=== PATIENT | female | born 1950 | race Caucasian/White ===

== ENCOUNTER 2019-11-18 12:55 | Outpatient (CLI) | payer MEDICARE, SELFPAY ==
--- NOTE | ~2019-11-18 | CT_ITS ---
EXAMINATION: CT thoracic spine wo con EXAM DATE: 11/18/2019 13:46 INDICATION: Mid back pain. Spondylosis. Spine stimulator. TECHNIQUE: Spiral CT thoracic spine wo con was performed without contrast. Axial, coronal and sagit gavi images were reviewed. The dose-length product (DLP) for this examination was 586.42 mGy-cm. The exposure was tailored according to patient size (auto mA exposure control), and iterative reconstruc tion (ASIR) was used as additional dose reduction technique. There is no prior study for comparison. FINDINGS: There is a spine stimulator device with lead tips at the T6-7 level. There is mild to moder ate mid and lower thoracic disc disease, mild upper thoracic disc disease. Diffuse mild thoracic face t arthropathy. The vertebral bodies are aligned in the AP dimension. Paraspinal soft tissue is unrema rkable. There are no osteoblastic or osteolytic lesions identified. There are cholecystectomy clips. Gastroesophageal surgical changes. IMPRESSION: 1. Mild to moderate thoracic disc disease, mild arthropathy. 2. Spine stimulator leads at T6-7 disc space level. Reviewed, dictated and finalized at location A. N SUPERVISOR
--- NOTE | ~2019-11-18 | CT_ITS ---
EXAMINATION: CT lumbar spine wo [facility] EXAM DATE: 11/18/2019 13:47 INDICATION: Spondylosis without myelopathy. Low back pain. TECHNIQUE: Spiral CT of the lumbar spine was performed without contrast. Axial, coronal and sagittal images were reviewed. The dose-length product (DLP) for this examination was 627.72 mGy-cm. The e xposure was tailored according to patient size (auto mA exposure control), and iterative reconstructi on (ASIR) was used as additional dose reduction technique. There is no prior study for comparison. FINDINGS: Spine stimulator leads entering T11-12 level left paracentral approach. Leads appear intact . There is mild to moderate disc disease at L1-2, mild at the other lumbar levels. The vertebral bodi es are aligned in the AP dimension. Paraspinal soft tissue is unremarkable. No spondylolysis. There a re no osteoblastic or osteolytic lesions identified. Sacrum, sacroiliac joints, sacral arcuate lines are intact. Level by level evaluation: T12-L1: There is a mild diffuse disc bulge. Facet arthropathy: Mild. Neural foraminal stenosis: No stenosis. Central canal stenosis: No stenosis. L1-L2: There is a mild to moderate diffuse disc bulge. Facet arthropathy: Moderate. Neural foraminal stenosis: Moderate left, mild right. Central canal stenosis: Mild to moderate. L2-L3: There is a mild diffuse disc bulge. Facet arthropathy: Moderate. Neural foraminal stenosis: Mild right. Central canal stenosis: Mild. L3-L4: There is a mild diffuse disc bulge. Facet arthropathy: Moderate. Neural foraminal stenosis: Mild to moderate bilateral. Central canal stenosis: Mild to moderate. L4-L5: There is a mild to moderate diffuse disc bulge. Facet arthropathy: Moderate. Neural foraminal stenosis: Mild to moderate bilateral. Central canal stenosis: Mild to moderate. L5-S1: There is a mild diffuse disc bulge. Facet arthropathy: Moderate. Neural foraminal stenosis: Mild to moderate left. Central canal stenosis: Mild. IMPRESSION: 1. Overall mild to moderate lumbar spondylosis. Reviewed, dictated and finalized at location A. RICT FIRE CHIEF
--- NOTE | ~2019-11-18 | US_ITS ---
EXAMINATION: US art doppler w press UE BI EXAM DATE: 11/18/2019 14:08 INDICATION: Arm pallor, bilateral leg numbness. TECHNIQUE: Segmental pressures and plethysmographic and Doppler waveforms of the upper extremity earl shaista were obtained. There is no prior study for comparison. FINDINGS: Right and left brachial artery pressures of 108 mm Hg and 110 mm Hg, respectively, are concordant (no rmal difference <= 30 mmHg). RIGHT: Biphasic waveforms. Right ulnar/brachial arterial Doppler ratio 1.03 (111 mmHg). Right radial/brachial arterial Doppler ratio 1.08 (117 mmHg). Right index finger 128 mmHg. LEFT: Biphasic waveforms. Left ulnar/brachial arterial Doppler ratio 0.95 (105 mmHg). Left radial/brachial arterial ratio 1.05 (115 mmHg). Left index finger 120 mmHg. IMPRESSION: Normal arm/brachial Doppler ratios. Reviewed, dictated and finalized at location A. FARMWORKER
== END 2019-11-18 12:56 | disposition home or self-care (01) ==
LOC: ANHIMG 12:58
PROVIDERS: PCP Registered Nurse; Visit Provider Nurse Practitioner Adult Health
DX: M47.816 Spondylosis without myelopathy or radiculopathy, lumbar region (principal); M47.894 Other spondylosis, thoracic region; Z96.82 Presence of neurostimulator; R20.2 Paresthesia of skin; R23.1 Pallor; R20.0 Anesthesia of skin; R09.89 Other specified symptoms and signs involving the circulatory and respiratory systems; R20.8 Other disturbances of skin sensation
CPT/HCPCS: 72128; 72131; 93923

== ENCOUNTER 2019-12-05 05:50 | Emergency (ER) | payer MEDICARE, SELFPAY ==
--- NOTE | ~2019-12-05 | XR_ITS ---
EXAMINATION: XR chest 2V DATE: 12/05/2019 07:09 INDICATION: Palpitations. TECHNIQUE: Frontal and lateral views of the chest were obtained. COMPARISON: Chest 2 views 06/03/2019, chest CT 07/14/2019 FINDINGS: The chest demonstrates clear lungs without pneumonia, pleural effusion, or pneumothorax. Th e heart size is normal. Epidural electrodes are noted. Surgical clips in the right upper quadrant are likely from cholecystectomy. IMPRESSION: 1. No acute cardiopulmonary disease. Reviewed, dictated and finalized at location A. OR DATA ANALYST
[2019-12-05 06:01] VITALS: BP 131/83; PULSE 83; RESP 20; TEMP 36.3; O2SAT 100
--- NOTE | 2019-12-05 06:31 | ECG_ITS ---
Measurements Intervals [place] Rate: 82 P: 6 [place]: 161 QRS: 39 QRSD: 68 T: 53 QT: 336 QTc: 393 Interpretive Statements SINUS RHYTHM LOW QRS VOLTAGE IN PRECORDIAL LEADS BORDERLINE R WAVE PROGRESSION, ANTERIOR LEADS BORDERLINE ST-T WAVE ABNORMALITY- ANT/INF LEADS BASELINE ARTIFACT- I, II, III, AVR, AVL, AVF, V3 BORDERLINE ECG Electronically Signed On 12-05-2019 8:08:31 VIROLOGIST by Abiel Veag D.O.
[2019-12-05 06:32] VITALS: BP 131/83; PULSE 83; RESP 18; TEMP 36.3; O2SAT 100
--- NOTE | 2019-12-05 06:35 | ED.GENADULT ---
HPI - General Adult General Chief complaint: Chest Pain Stated complaint: heart palp Time Seen by Provider: 12/05/19 06:02 Source: patient Mode of arrival: ambulatory Limitations: no limitations History of Present Illness HPI narrative: Patient is a 69-year-old female who presents for evaluation of back pain. Patient reports history of spinal stenosis, disc herniation, sciatica pain, follows at [facility] for pain management and has a spinal stimulator in place, who is doing so increased activity yesterday, babysitting her grandchild, lifting her grandson and doing more bending and lifting than she is used to, reportedly had very bad back pain yesterday after babysitting for several hours. Patient reports emergency department this morning that she has worsened pain that the spinal stimulator has not been working. Patient has been ambulatory. She denies any saddle anesthesia. No recent fall or injury. No history of cancer. No fever. Pain is worse with moving. She reports a tingling sensation in her bilateral buttocks. No upper or middle back pain. She reports the pain is severe in nature, and begins at her waist and moves into her lower back. No leg or hip pain. No numbness in her feet, knees or legs. No difficulty with bowel or bladder function. Of note, patient reports increased anxiety regarding this and difficulty with watching her grandchild. She reports she has had palpitations, but denies any chest pain, shoulder pain, jaw pain. No nausea, diaphoresis or shortness of breath. Patient reports a history of SVT, with ablation in the past. Related Data Allergies Allergy/AdvReac Type Severity Reaction Status Date / Time NSAIDS (Non-Steroidal Allergy Severe Other Verified 07/14/19 12:58 Anti-Inflamma Review of Systems Review of Systems: Narrative: CONSTITUTIONAL: Denies fever, chills, or sweats. ENT: Denies rhinorrhea, congestion, sore throat, or otalgia. CARDIOVASCULAR: Denies chest pain, palpitations, or edema. RESPIRATORY: Denies cough or dyspnea. GASTROINTESTINAL: Denies abdominal pain, nausea, vomiting, or diarrhea. GENITOURINARY: Denies dysuria or hematuria.No bladder incontinence. SKIN: Denies rash or itching. MUSCULOSKELETAL: Denies back pain, joint pain, or myalgia. NEUROLOGIC: Denies headache, reports numbness in the lower back, denies weakness. [facility] Past Medical History Medical History (Updated 12/05/19 @ 09:38 by Shirley Velez MD) Spinal cord stimulator status Spinal stenosis SVT (supraventricular tachycardia) Social History Social History Gender identity (if verbalized by the patient): Female Exam Narrative: Exam Narrative: GENERAL: Well-appearing, well-nourished, and in no acute distress. HEAD: Normocephalic, atraumatic. EYES: PERRLA and EOMI. ENT: Nares clear, no rhinorrhea or epistaxis. Mucous membranes moist. NECK: Supple. CHEST: Clear to auscultation. No respiratory distress. HEART: Regular rate and rhythm. No murmur heard. Normal peripheral pulses. ABDOMEN: Soft, nontender, nondistended, normal active bowel sounds. Thorax: No midline cervical or thoracic tenderness. No lumbar midline tenderness. Right SI joint tenderness. Left SI joint tenderness. EXTREMITIES: Normal range of motion. No edema. SKIN: Warm, dry, no rash. NEURO: No focal deficits. Alert and oriented x3. EOMs intact without nystagmus. No facial droop/asymmetry noted bilaterally. Grimace intact. Intact sensation in face. Hearing intact bilaterally. Shoulder shrug intact. Strength 5/5 bilateral upper extremities. Strength 5/5 bilateral lower extremities. Reflexes 2+ patellar. Heel to licona intact bilaterally. Straight leg raise negative bilaterally. Full strength in EHL/FHL bilateral feet. Intact distal sensation. Gluteal squeezes normal. Good tone. Ambulatory with a narrow-based, steady gait, no ataxia. Course Vital Signs Vital signs: Vital Signs Temperature 36.3 C L 12/05/19 06:01 Pulse Rate 83 12/05/19 0
[2019-12-05 07:26] LABS: Basophils Absolute Auto 0.1 K/mm3 (0.0-0.1); Basophils Percent Auto 1.3 % (0.2-1.2); Eosinophils Absolute Auto 0.1 K/mm3 (0-0.3); Eosinophils Percent Auto 1.5 % (0-4.4); Hematocrit 36.6 % (37.0-47.0); Hemoglobin 12.2 g/dL (12.0-15.0); Immature Granulocyte Absolute 0.01 K/mm3 (0.00-0.031); Immature Granulocyte Percent A 0.2 % (0-0.5); Lymphocytes Absolute Auto 2.42 K/mm3 (0.9-3.2); Mean Corpuscular HGB Conc 33.3 g/dl (32-36); Mean Corpuscular Hemoglobin 32.6 pg (26-34); Mean Corpuscular Volume 97.9 fl (80-100); Mean Platelet Volume 11.1 fl (7.4-10.4); Monocytes Absolute Auto 0.5 K/mm3 (0.1-0.6); Monocytes Percent Auto 9.7 % (2.6-8.5); Neutrophils Absolute Auto 1.6 K/mm3 (1.3-6.7); Neutrophils Percent Auto 35.3 % (45.5-73.1); Platelet Count Result 202 k/mm3 (150-375); Red Blood Count 3.74 M/mm3 (4.2-5.4); Red Cell Distribution Width 13.2 % (11.5-14.5); White Blood Count 4.7 K/mm3 (4.5-10.0)
[2019-12-05 07:42] LABS: Blood Urea Nitrogen 10 mg/dL (7-17); Calcium 9.6 mg/dL (8.4-10.2); Carbon Dioxide 26 mmol/L (22-30); Chloride 103 mmol/L (98-107); Estimated CRCL calculation 92 ml/min; Estimated Glomerular Filt Rate > 60; Glucose 99 mg/dL (65-105); INR 0.9; Potassium 3.8 mmol/L (3.4-5.0); Prothrombin Time 11.7 Seconds (11.1-14.7); Sodium 138 mmol/L (137-145)
[2019-12-05 07:43] LABS: Partial Thromboplastin Time 26.9 SECONDS (22.3-36.8)
[2019-12-05] MEDS: ACETAMINOPHEN 500 MG TABLET 1000 MG PO (07:51)
[2019-12-05] MEDS: predniSONE 20 MG TABLET 60 MG PO (07:51)
[2019-12-05] MEDS: DIAZEPAM 5 MG TABLET PO (07:51)
[2019-12-05] MEDS: KETOROLAC (*BKC) 60 MG/2 ML VIAL 30 MG IM (07:53)
[2019-12-05 07:54] LABS: Troponin I < 0.012 ng/mL (0.000-0.034)
[2019-12-05 08:00] VITALS: BP 100/76; PULSE 67; RESP 16; O2SAT 98
--- NOTE | 2019-12-05 08:20 | ECG_ITS ---
Measurements Intervals [place] Rate: 64 P: 12 [place]: 172 QRS: -14 QRSD: 74 T: 12 QT: 400 QTc: 415 Interpretive Statements SINUS RHYTHM LOW QRS VOLTAGE IN PRECORDIAL LEADS BORDERLINE R WAVE PROGRESSION, ANTERIOR LEADS BORDERLINE T WAVE ABNORMALITY- ANTERIOR LEADS BORDERLINE ECG Electronically Signed On 12-05-2019 11:57:44 CAR ELECTRONICS INSTALLER by Abiel Vega D.O.
[2019-12-05 09:00] VITALS: BP 115/58; PULSE 67; RESP 16; O2SAT 98
[2019-12-05 10:15] VITALS: BP 119/61; PULSE 64; RESP 16; O2SAT 99
== END 2019-12-05 10:15 | disposition home or self-care (01) ==
PROVIDERS: Emergency Provider Emergency Medicine; PCP Registered Nurse
DX: M54.5 Low back pain (principal); R07.89 Other chest pain; R94.31 Abnormal electrocardiogram [ECG] [EKG]; Z96.82 Presence of neurostimulator
CPT/HCPCS: 36415; 71046; 80048; 84484; 85025; 85610; 85730; 93005; 96372; 99284; A9270; J1885; J7512

== ENCOUNTER 2020-06-30 09:28 | Observation (INO) | payer MEDICARE, SELFPAY ==
[2020-06-30] VITALS (16 sets, daily range): BP systolic 109–139; BP diastolic 52–120; PULSE 64–93; RESP 11–24; TEMP 35.8–37.1; O2SAT 91–100; BMI 25.1
--- NOTE | ~2020-06-30 | XR_ITS ---
EXAMINATION: XR chest 1V portable DATE: 06/30/2020 10:04 INDICATION: Chest pain. TECHNIQUE: A single frontal view of the chest was obtained. COMPARISON: Chest 2 views 12/05/2019, thoracic spine CT 11/18/2019 FINDINGS: The chest demonstrates clear lungs without pneumonia, pleural effusion, or pneumothorax. Th e heart size is normal. Electrodes overlie thoracic spine. IMPRESSION: 1. No acute cardiopulmonary disease. Reviewed, dictated and finalized at location B.
--- NOTE | ~2020-06-30 | US_ITS ---
US right upper quadrant INDICATION: Abdomen pain. Pelvis stools. Cholecystectomy. PROCEDURE: Realtime right upper abdominal ultrasound. COMPARISON: No prior studies for comparison. FINDINGS: Pancreas not well visualized due to bowel gas. Liver echotexture is grossly unremarkable wi thout discrete mass. There is normal directional flow in the portal vein. Gallbladder is surgically absent. Common bile duct measures 4 mm. IMPRESSION: 1: Unremarkable limited abdominal ultrasound postcholecystectomy. Reviewed, dictated and finalized at location A.
--- NOTE | ~2020-06-30 | CT_ITS ---
EXAMINATION: CTA chest PE protocol DATE: 06/30/2020 11:29 INDICATION: Left chest pain. TECHNIQUE: Computed tomography angiography (CTA) of the chest was performed with 100 mL Omnipaque-350 intravenous contrast timed to evaluate the pulmonary arteries. Coronal maximum intensity projection 3D-reconstructions were created by the technologist. Automated exposure control and iterative reconst ruction technique were employed. The dose-length product was 325.53 mGy-cm. COMPARISON: Chest CT 07/14/2019 FINDINGS: The lungs demonstrate mild atelectasis. No pleural effusion. The heart size is normal. No p ericardial effusion. There is no pulmonary embolus. There are surgical changes of the stomach. There is a small sliding hiatal hernia. There are changes of cholecystectomy. There are epidural electrodes in thoracic spine. There is mild thoracic spondylosis. IMPRESSION: 1. No pulmonary embolus. Reviewed, dictated and finalized at location B. IMPRESSION: 1. No pulmonary embolus.
--- NOTE | 2020-06-30 09:44 | ECG_ITS ---
Measurements Intervals [place] Rate: 92 P: 60 [place]: 184 QRS: 12 QRSD: 58 T: 27 QT: 330 QTc: 410 Interpretive Statements SINUS RHYTHM LOW QRS VOLTAGE IN PRECORDIAL LEADS BORDERLINE R WAVE PROGRESSION, ANTERIOR LEADS BORDERLINE ST-T WAVE ABNORMALITY- ANTEROLAT/INF LEADS BORDERLINE ECG Electronically Signed On 06-30-2020 12:40:17 CDT by Abiel Vega D.O.
--- NOTE | 2020-06-30 09:45 | ED.CHESTPAIN ---
HPI - Chest Pain General Chief Complaint: Chest Pain Stated Complaint: CHEST PAIN HX [place] Time Seen by Provider: 06/30/20 09:39 Source: RN notes reviewed History of Present Illness HPI narrative: Patient presents emergency department from home for chest pain. Patient states symptoms began approximate 1 hour ago. Pain is located over the bilateral anterior chest and radiates up in the left shoulder as well as through to the back between the shoulder blades. Pain is described as a pressure in nature. Denies any associated symptoms. Denies any fevers or chills shortness of breath abdominal pain nausea vomiting. Patient states she does have a history of an [place] and is followed by Dr. Venegas for cardiology. States she tried taking a Flexeril at home with no relief as well as a nitro with no relief and a [place]. Related Data Allergies Allergy/AdvReac Type Severity Reaction Status Date / Time NSAIDS (Non-Steroidal Allergy Severe Other Verified 06/30/20 09:52 Anti-Inflamma Review of Systems Review of Systems: Narrative: Gen.: Denies fevers or chills ENT: Denies congestion Respiratory: Denies shortness of breath or cough CV: See HPI GI: Denies abdominal pain nausea, emesis or diarrhea Musculoskeletal: Denies back pain or muscle pain Neuro: Denies numbness, tingling, weakness or focal weakness Skin: Denies rash Except as documented, all other systems reviewed and negative [facility] Past Medical History Medical History (Updated 06/30/20 @ 12:33 by Héctor Bazzi DO) Coronary artery disease Spinal cord stimulator status Spinal stenosis SVT (supraventricular tachycardia) Social History Social History (Updated 06/30/20 @ 09:46 by Héctor Bazzi DO) Smoking status: Never smoker Gender identity (if verbalized by the patient): Female Exam Narrative: Exam Narrative: APPEARANCE: No acute distress, nontoxic, resting in bed EYES: EOMI HEENT: Normocephalic, atraumatic, OMM RESPIRATORY: No respiratory distress Clear to auscultation bilaterally with no rhonchi wheezing or rales. CARDIOVASCULAR: Regular rate and rhythm without murmurs rubs or gallops. ABDOMINAL: Soft, nontender, nondistended, no rebound or guarding MUSCULOSKELETAl: Moves all extremities. No clubbing, cyanosis or edema. NEURO: Awake and alert. Following commands, speech normal, no focal deficits SKIN:: Warm, dry. No rashes lesions or abrasions PSYCHIATRIC: Normal affect/mood, Course Course Emergency Course: Patient continues to have chest pain minimal change with GI cocktail will give morphine and obtain CTA chest Discussed with Dr. Winters presentation work-up. Agrees with consult at this time Discussed Dr. Perry presentation work-up. Agrees with admission at this time Discussed with patient and family results of workup and diagnosis. Discussed need for admission. Patient and family understand and agree to current treatment plan Vital Signs Vital signs: Vital Signs Pulse Rate 92 06/30/20 09:45 Blood Pressure 131/75 06/30/20 09:45 Pulse Oximetry 100 06/30/20 09:45 Temperature 98.7 F 06/30/20 09:46 Pulse Rate 65 06/30/20 10:17 Respiratory Rate 23 H 06/30/20 10:17 Blood Pressure 109/57 L 06/30/20 10:16 Pulse Oximetry 100 06/30/20 10:17 MDM - Chest Pain Lab Data Result diagrams: 06/30/20 09:54 06/30/20 09:54 Labs: Lab Results 06/30/20 06/30/20 06/30/20 Range/Units 09:54 09:54 09:54 WBC 5.4 (4.5-10.0) K/mm3 RBC 3.87 L (4.2-5.4) M/mm3 Hgb 12.5 (12.0-15.0) g/dL Hct 36.9 L (37.0-47.0) % MCV 95.3 (80-100) fl MCH 32.3 (26-34) pg MCHC 33.9 (32-36) g/dl RDW 13.6 (11.5-14.5) % Plt Count 267 (150-375) k/mm3 MPV 11.4 H (7.4-10.4) fl Immature Gran % (Auto) 0.2 (0-0.5) % Neut % (Auto) 35.4 L (45.5-73.1) % Lymph % (Auto) 51.4 H (18.3-44.2) % [place] % (Auto) 9.9 H (2.6-8.5) % Eos % (Auto) 2.2 (0-4.4) % Baso % (Auto)
[2020-06-30 10:04] LABS: Basophils Absolute Auto 0.1 K/mm3 (0.0-0.1); Basophils Percent Auto 0.9 % (0.2-1.2); Eosinophils Absolute Auto 0.1 K/mm3 (0-0.3); Eosinophils Percent Auto 2.2 % (0-4.4); Hematocrit 36.9 % (37.0-47.0); Hemoglobin 12.5 g/dL (12.0-15.0); Immature Granulocyte Absolute 0.01 K/mm3 (0.00-0.031); Immature Granulocyte Percent A 0.2 % (0-0.5); Lymphocytes Absolute Auto 2.79 K/mm3 (0.9-3.2); Lymphocytes Percent Auto 51.4 % (18.3-44.2); Mean Corpuscular HGB Conc 33.9 g/dl (32-36); Mean Corpuscular Hemoglobin 32.3 pg (26-34); Mean Corpuscular Volume 95.3 fl (80-100); Mean Platelet Volume 11.4 fl (7.4-10.4); Monocytes Absolute Auto 0.5 K/mm3 (0.1-0.6); Monocytes Percent Auto 9.9 % (2.6-8.5); Neutrophils Absolute Auto 1.9 K/mm3 (1.3-6.7); Neutrophils Percent Auto 35.4 % (45.5-73.1); Platelet Count Result 267 k/mm3 (150-375); Red Blood Count 3.87 M/mm3 (4.2-5.4); Red Cell Distribution Width 13.6 % (11.5-14.5); White Blood Count 5.4 K/mm3 (4.5-10.0)
[2020-06-30 10:13] LABS: Prothrombin Time 12.5 Seconds (11.1-14.7)
[2020-06-30 10:14] LABS: Partial Thromboplastin Time 26.9 SECONDS (22.3-36.8)
[2020-06-30 10:17] LABS: Alanine Aminotransferase 27 U/L (4-35); Albumin Level 4.5 g/dL (3.5-5.1); Alkaline Phosphatase 78 U/L (38-126); Anion Gap 9 mmol/L (8-16); Aspartate Amino Transferase 34 U/L (14-36); Bilirubin,Total 0.6 mg/dL (0.2-1.3); Blood Urea Nitrogen 14 mg/dL (7-17); Calcium 9.3 mg/dL (8.4-10.2); Carbon Dioxide 25 mmol/L (22-30); Chloride 102 mmol/L (98-107); Estimated CRCL calculation 91 ml/min; Estimated Glomerular Filt Rate > 60; Glucose 100 mg/dL (65-105); Lipase 36 U/L (23-300); Potassium 4.1 mmol/L (3.4-5.0); Sodium 136 mmol/L (137-145)
[2020-06-30 10:29] LABS: Troponin I < 0.012 ng/mL (0.000-0.034)
[2020-06-30] MEDS: MORPHINE SULFATE 2 MG/ML INJ IV PUSH ×2 (11:21→15:29)
--- NOTE | 2020-06-30 11:23 | PC.NURSE ---
pt to ct at this time
[2020-06-30 13:18] LABS: Troponin I < 0.012 ng/mL (0.000-0.034)
--- NOTE | 2020-06-30 13:32 | ADMGEN ---
This patient, Neha Mccrary, was admitted to IMU Room 212-01. Patient/family oriented to hospital policies and general routines including ID bracelet, bed and alarms, visiting hours, pain management, procedures, bathroom and other care routines, personal items, smoking policy, room service/diet, and visiting hours. Valuables list has been completed. Information on how to activate the Rapid Response Team has been discussed. Patient/Family are encouraged to report perceived risks to care and to ask questions if they do not understand what they are told or what they should do.
--- NOTE | 2020-06-30 14:39 | PM.IMHP ---
H&P: HPI History of Present Illness Date/Time: 06/30/20 14:39 Chief complaint: chest pain Narrative: Neha Mccrary is a 70 year old female Who tells me that she has had a myocardial infarction in the past. She has had a cardiac catheterization many years ago but not recently. She stated that she had minimal blockages and no cardiac stent many years ago. She has not had a history of SVT and had a cardiac ablation in the past she sees Dr. Venegas at [facility] in [facility]. She stated that she called her field radio technician today and he instructed her to go to the nearest ER. Cardiac enzymes are negative x2 today. The patient has chronic back pain and she said that she took her hydrocodone and that did not seem to help her discomfort. The patient thought that maybe she strained the muscles in her chest. She watches her grandchildren every day and she lifts an [id number] child and thought that maybe she pulled a muscle. She also tried her Flexeril but that did not seem to work either. She also tried her nitroglycerin and that did help either. The patient stated that she has severe pain across her chest that feels more like pressure and achiness. She states that it goes all the way through to her back across her shoulders. She recently had an EGD and they found esophagitis and she has been treated for that. However she said this feels differently. She felt nauseated today. She did not have any radiation up into her neck but it did radiate to her shoulder. The pain is worse with movement. It is worse with deep breaths. She stated that she has constant pain even while lying still. She is not short of breath. No fever no chills. No recent sick contacts. She stated that she has not been coughing. She also has a history of anxiety. She states that nothing makes it feel better. She was given a GI cocktail in the emergency room, aspirin and morphine. She stated that the morphine worked better than her [place]. The patient also has a pain stimulator in her back. The patient stated that she has had a stress test many years ago and it was negative. She stated that she was supposed to have what she believes is a cardiac catheterization prior to [facility] and had to be canceled. Cardiology has been consult here. Her chest x-ray was read per Radiology as no cardiopulmonary disease. Her CT a is read as no pulmonary embolus. Date of service is 06/30/2020 he was admitted to the IMU. Review of Systems Review of Systems: All systems reviewed & are unremarkable except as noted in HPI and below Constitutional: Constitutional: Reports as per HPI and Reports no additional constitutional complaints Eyes: Eyes: Reports as per HPI and Reports no additional eye complaints ENT: Reports system reviewed and no additional complaints, except as documented and Reports Normal hearing present Cardiovascular: Cardiovascular: Reports no additional cardiovascular complaints Respiratory: Respiratory: Reports as per HPI and Reports no additional respiratory complaints Gastrointestinal: Gastrointestinal: Reports as per HPI and Reports no additional gastrointestinal complaints Genitourinary: Genitourinary: Reports no additional female genitourinary complaints Musculoskeletal: Musculoskeletal: Reports no additional musculoskeletal complaints Integumentary/Breasts: Skin/Breast: Reports system reviewed and no additional complaints, except as docu Neurologic: Reports system reviewed and no additional complaints, except as documented and Reports Normal hearing present Psychiatric: Psychiatric: Reports no additional psychiatric complaints and Reports as per HPI Endocrine: Endocrine: Reports no additional endocrine complaints Hematologic/Lymphatic: Hematologic/Lymphatic: Reports no additional hematologic/lymphatic complaints Allergic/Immunologic: Allergic/Immunologic: Reports no additional allergic/immunologic complaints PMFSH Past Medical History
--- NOTE | 2020-06-30 16:50 | WPDCN ---
Assessment and Plan Assessment and plan (1) Chest pain: Code(s): R07.9 - Chest pain, unspecified Status: Acute Assessment and Plan: patient with atypical chest pain and a negative workup. Troponins are negative despite hours of chest discomfort and EKG shows no ischemia. She has had multiple evaluations for chest pain over the past several years all of which are negative for CAD. This appears to be musculoskeletal chest discomfort. Recommendation: Reassurance Tylenol as needed No further cardiac evaluation needed. Follow-up with Dr. Higgins. [facility] Data of Consult Date/Time: 06/30/20 16:50 Requesting Physician: Margarito Perry MD Primary Care Provider: Jan Leos, Consult Narrative Narrative: Date of service: 06/30/2020 Neha Mccrary is a 70 year old female Whom we were asked to see at the request of the hospitalist for advice and opinion regarding her on going chest pain consultation. She states she has a history of [place], which is not well documented. She did have SVT and an ablation in 2008. She is followed by Dr. Higgins for cardiac problems. The patient was in her normal state of health until she was doing housework, bent over and suddenly had a horrific cramping pain across her chest like a pulled muscle. She took a nitroglycerin with no relief. It radiated to her left shoulder and back and she felt nauseated. She tried Flexeril and hydrocodone without relief so came to the emergency room. The pain is somewhat pleuritic, burning, and worse with movement. She continues to have discomfort which has not improved Despite a GI cocktail and morphine 2 mg x 2 in the ER. Extensive old records from [facility] was were reviewed. She has a long history of chest pain and several evaluations in the past. Cardiac catheterization from 2012 showed no coronary disease and normal left ventricular function. She had a nuclear stress test and also a stress echo in 2018 which were both negative. She states she had a heart attack when she had her SVT. No SVT since the ablation in 2008. She states she has some plaque in her aorta which is being evaluated by Dr. Higgins. She has a history of diabetes and hyperlipidemia. She had a DVT in the past treated with anticoagulant. Her primary care doctors Dr. Jan leos and he also relates that she has a bipolar disorder and borderline personality disorder, GERD with Linda's esophagitis ( had EGD in early June), pulmonary hypertension, restless leg syndrome and other problems. Review of Systems Constitutional: Constitutional: Reports no additional constitutional complaints ENT: Denies epistaxis Cardiovascular: Cardiovascular: Reports chest pain, Denies pedal edema, Denies leg edema and Denies palpitations Respiratory: Respiratory: Denies dyspnea and Denies dyspnea on exertion Gastrointestinal: Gastrointestinal: Denies abdominal pain and Reports heartburn Genitourinary: Genitourinary: Denies hematuria Musculoskeletal: Musculoskeletal: Denies back pain Psychiatric: Psychiatric: Reports no additional psychiatric complaints [facility] Past Medical History Medical History (Updated 06/30/20 @ 17:27 by Armida Winters MD) Barretts esophagus Bipolar disorder Chronic back pain Coronary artery disease patient stated that she had minimal blockages and was treated medically. She sees Dr. Higgins. Cardiac catheterization in 2012 done by zachariah Da Silva showed no coronary disease and normal LV function. Depression with anxiety History of DVT (deep vein thrombosis) left lower extremity History of esophageal dilatation History of implanted metallic device spinal neural transmitter implant History of polycystic ovarian syndrome Spinal cord stimulator status Spinal stenosis SVT (supraventricular tachycardia) status post cardiac ablation 2008 Surgical History Surgical History (Reviewed 06/30/20 @ 17:27 by Armida Winters,
[2020-06-30 16:54] LABS: Troponin I < 0.012 ng/mL (0.000-0.034)
[2020-06-30] MEDS: PANTOPRAZOLE 40 MG TABLET PO (20:24)
[2020-07-01] VITALS (8 sets, daily range): BP systolic 110–140; BP diastolic 51–59; PULSE 56–72; RESP 16–20; TEMP 35.8–36.3; O2SAT 97–100
--- NOTE | 2020-07-01 | ECHO_ITS ---
Patient Info Name: Neha Mccrary Age: 70 years : 1950 Gender: Female Ht: 68 in Wt: 165 lbs BSA: 1.90 m2 HR: 60 bpm BP: 118 / 54 mmHg Heart Rhythm: Sinus Rhythm Technical Quality: Good Exam Date: 07/01/2020 8:30 AM Exam Location: [facility] Patient Status: Inpatient Admit Date: 06/30/2020 Staff Ordering Physician: Marcela Pantoja NP Electric Pile Driver Operator: Minor Obrien RDCS, RT Attending Provider: Jocelynn Upton PA-C Referring Physician: Kit MARTINEZ; Exam Type: CA echo dop color flow w con Study Info Indications R07.89 - Other chest pain Complete two-dimensional, color flow and Doppler transthoracic echocardiogram is performed with contrast to opacify the left ventricle and to improve the deliniation of the left ventricle endocardial borders. Summary 1. Definity contrast injected to enhance visualization. 2. Left ventricular systolic function is hyperdynamic, estimated at >70%. 3. Right ventricular chamber dimension is normal. 4. Mildly sclerotic aortic valve but no significant valvular pathology. Left Ventricle Left ventricular chamber dimension is normal. Left ventricular systolic function is hyperdynamic, estimated at >70%. The left ventricular diastolic function is normal. Definity contrast injected to enhance visualization. Right Ventricle Right ventricular chamber dimension is normal. Left Atria Left atrial chamber dimension is normal. Right Atria Right atrial chamber dimension is normal. Aortic Valve The aortic valve is trileaflet. There is mild aortic valve sclerosis. Pulmonic Valve The pulmonic valve is normal. Mitral Valve The mitral valve has normal leaflets. Tricuspid Valve The tricuspid valve leaflets are normal. Pericardium/Pleural The pericardium appears normal. Aorta The aortic root size at the sinus of Valsalva is normal. Left Ventricular Outflow Tract Name Value Normal LVOT 2D LVOT Diameter 1.91 cm LVOT Doppler LVOT Peak Gradient 5 mmHg LVOT Mean Gradient 3 mmHg LVOT VTI 27.85 cm LVOT VTI/AV VTI Ratio 0.90 LVOT Stroke Volume 79.36 ml LVOT CO 5.16 l/min LVOT CI 2.71 L/min/m2 Mitral Valve Name Value Normal MV Doppler MV Decel [place] 388.08 cm/s2 MV PHT 0 s MV Area (PHT) 3.52 cm2 4.00-5.00 MV Diastolic Function MV E Peak Velocity 83.66 cm/s MV A Peak Velocity 98.34 cm/s MV E/A 0.85 MV Decel Time 0 s
[2020-07-01 05:15] LABS: Basophils Absolute Auto 0.1 K/mm3 (0.0-0.1); Basophils Percent Auto 1.3 % (0.2-1.2); Eosinophils Absolute Auto 0.2 K/mm3 (0-0.3); Eosinophils Percent Auto 3.8 % (0-4.4); Hematocrit 33.1 % (37.0-47.0); Immature Granulocyte Absolute 0.01 K/mm3 (0.00-0.031); Immature Granulocyte Percent A 0.2 % (0-0.5); Lymphocytes Absolute Auto 3.33 K/mm3 (0.9-3.2); Lymphocytes Percent Auto 60.3 % (18.3-44.2); Mean Corpuscular HGB Conc 33.2 g/dl (32-36); Mean Corpuscular Hemoglobin 31.3 pg (26-34); Mean Corpuscular Volume 94.3 fl (80-100); Mean Platelet Volume 11.1 fl (7.4-10.4); Monocytes Absolute Auto 0.5 K/mm3 (0.1-0.6); Monocytes Percent Auto 9.1 % (2.6-8.5); Neutrophils Absolute Auto 1.4 K/mm3 (1.3-6.7); Neutrophils Percent Auto 25.3 % (45.5-73.1); Platelet Count Result 255 k/mm3 (150-375); Red Blood Count 3.51 M/mm3 (4.2-5.4); Red Cell Distribution Width 13.2 % (11.5-14.5); White Blood Count 5.5 K/mm3 (4.5-10.0)
[2020-07-01 05:30] LABS: Alanine Aminotransferase 22 U/L (4-35); Albumin Level 3.7 g/dL (3.5-5.1); Alkaline Phosphatase 71 U/L (38-126); Anion Gap 5 mmol/L (8-16); Aspartate Amino Transferase 25 U/L (14-36); Bilirubin,Total 0.3 mg/dL (0.2-1.3); Blood Urea Nitrogen 17 mg/dL (7-17); Calcium 8.8 mg/dL (8.4-10.2); Carbon Dioxide 26 mmol/L (22-30); Chloride 106 mmol/L (98-107); Estimated CRCL calculation 77 ml/min; Estimated Glomerular Filt Rate > 60; Glucose 90 mg/dL (65-105); Magnesium 1.9 mg/dL (1.6-2.3); Potassium 4.1 mmol/L (3.4-5.0); Sodium 137 mmol/L (137-145)
[2020-07-01] MEDS: MORPHINE SULFATE 2 MG/ML INJ IV PUSH (08:48)
[2020-07-01] MEDS: PANTOPRAZOLE 40 MG TABLET PO (08:49)
[2020-07-01] MEDS: buPROPion HCL SR (12HR) 100 MG TABCR PO (08:49)
[2020-07-01] MEDS: PERFLUTREN LIPID MICROSPHERES 1.5 ML VIAL DILUTED TO 10 ML TOTAL VOLUME IV PUSH (09:44)
--- NOTE | 2020-07-01 16:16 | PM.DS ---
DS: Admitting Diagnosis Admitting Diagnosis Admitting Diagnosis: chest pain DS: Discharge Diagnosis Discharge Diagnosis (1) Chest pain: Code(s): R07.9 - Chest pain, unspecified Status: Acute Assessment and Plan: Discharge Summary (Date of service 07/01/20): Ms. Mccrary is a 70 y.o. female with PMH significant for Barretts esophagus, bipolar disorder, chronic back pain with spinal cord stimulator, CAD, SVT s/p ablation in 2008, and depression who presented to the emergency department for the evaluation of chest pain. She reported that she was lifting her grandchildren and felt that she may have strained muscles in her chest. She reported aching and pressures across her chest and into the back with pleuritic nature and burning. She took norco, flexeril, and nitroglycerin with no relief. Initial workup in the emergency department was notable for no evidence of pulmonary embolus on chest CTA, CXR without any abnormalities, negative troponins x3, and EKG without ischemic change. She was admitted to the IMU service for further evaluation/telemetry monitoring. Cardiology was consulted to see the patient. Her pain was not felt consistent with ACS. Echocardiogram was performed and revealed hyperdynamic LV systolic function with EF >70% and mildly sclerotic aortic valve with no other significant valvular pathology. She was s/p cholecystectomy. RUQ US was ordered and unremarkable. Her pain was felt to be musculoskeletal and she was discharged on 07/01/20 in stable condition with recommendations to continue conservative care. She was advised to follow-up with Dr. Venegas, her primary boiler coverer. (2) Bipolar disorder: Code(s): F31.9 - Bipolar disorder, unspecified Status: Chronic Assessment and Plan: Chronic with no acute issues. Wellbutrin and hydroxyzine were continued. (3) Esophagitis: Code(s): K20.9 - Esophagitis, unspecified Status: Chronic Assessment and Plan: PPI was continued. (4) Depression with anxiety: Code(s): F41.8 - Other specified anxiety disorders Status: Chronic Assessment and Plan: Chronic with no acute issues. Wellbutrin and hydroxyzine were continued. (5) Chronic back pain: Code(s): M54.9 - Dorsalgia, unspecified; G89.29 - Other chronic pain Status: Chronic Assessment and Plan: Flexeril and norco were continued. DS: Summary Hospital Course Reason for hospitalization: Chest pain Hospital Course: As above. Status at Discharge Functional status at discharge: independent ambulation Overall status at discharge: patient is back to baseline Time Spent with Patient Time attestation: Total time spent providing and/or coordinating discharge services: 35 minutes Exam Narrative: Exam Narrative: Vitals at presentation: Pulse BP Pulse Ox 92 131/75 100 06/30/20 09:45 06/30/20 09:45 06/30/20 09:45 Vitals at discharge: Temp Pulse Resp BP Pulse Ox 96.5 F L 65 20 140/59 L 100 07/01/20 12:00 07/01/20 14:00 07/01/20 12:00 07/01/20 12:00 07/01/20 12:00 General: Pleasant, well-developed, well-nourished 70 y.o. female lying in the semi-recumbent position in bed in no acute distress. HEENT: Normocephalic and atraumatic. Oral mucosa moist. Neck: Supple. Cardiac: Regular rate and rhythm. S1 and S2 normal. Lungs: Lungs clear to auscultation bilaterally. Abdomen: Normoactive bowel sounds. Abdomen is soft, non-distended, and non-tender. Extremities: No lower extremity edema or calf tenderness. Pedal pulses 2+ bilaterally. Neurological: Alert. Exam is non-focal to casual conversation. Speech is clear. Skin: Warm and dry. Psychiatric: Judgment and insight intact. Pleasant mood and odd affect. DS: Data Data Completed and Pending Compl
== END 2020-07-01 17:07 | disposition home or self-care (01) ==
LOC: ANHED 12:33 → ANHIMU 13:12
PROVIDERS: Nurse Practitioner; Admitting Provider Internal Medicine; Emergency Provider Emergency Medicine; PCP Internal Medicine; Visit Provider Physician Assistant
DX: R07.89 Other chest pain (principal); I25.2 Old myocardial infarction; I25.10 Atherosclerotic heart disease of native coronary artery without angina pectoris; M54.9 Dorsalgia, unspecified; G89.29 Other chronic pain; F31.9 Bipolar disorder, unspecified; F41.8 Other specified anxiety disorders; K20.9 Esophagitis, unspecified
CPT/HCPCS: 36415; 71045; 71275; 76705; 80053; 83690; 83735; 84443; 84484; 85025; 85610; 85730; 93005; 93306; 96374; 96375; 96376; 99285; A9270; C8929; G0378; J2270; Q9957; Q9967

== ENCOUNTER 2021-01-16 09:32 | Outpatient (CLI) | payer MEDICARE, SELFPAY ==
--- NOTE | ~2021-01-16 | XR_ITS ---
EXAMINATION: XR sacroiliac joints min 3V DATE: 01/16/2021 10:12 INDICATION: Multiple joint pain. TECHNIQUE: 3 views of the sacroiliac joints were obtained. COMPARISON: None. FINDINGS: Bone alignment is normal. No fracture. There is mild right hip osteoarthritis and moderate left hip osteoarthritis. There is mild osteoarthritis of the sacroiliac joints. There is moderate lum bar spondylosis. An electronic device overlies left pelvis. IMPRESSION: 1. Polyarticular osteoarthritis. No evidence of inflammatory arthropathy. Reviewed, dictated and finalized at location A.
--- NOTE | ~2021-01-16 | XR_ITS ---
EXAMINATION: XR wrist LT 2V DATE: 01/16/2021 10:12 INDICATION: Multiple joint pain. TECHNIQUE: 2 views of left wrist were obtained. COMPARISON: None. FINDINGS: Bone alignment is normal. No fracture. There is mild osteoarthritis of first carpometacarpa l joint. IMPRESSION: 1. Mild osteoarthritis of first carpometacarpal joint. Reviewed, dictated and finalized at location A.
--- NOTE | ~2021-01-16 | XR_ITS ---
EXAMINATION: XR wrist RT 2V DATE: 01/16/2021 10:12 INDICATION: Multiple joint pain. TECHNIQUE: 2 views of right wrist were obtained. COMPARISON: None. FINDINGS: Bone alignment is normal. No fracture. There is mild osteoarthritis of first carpometacarpa l joint and moderate osteoarthritis of lunotriquetral joint. IMPRESSION: 1. Polyarticular osteoarthritis. Reviewed, dictated and finalized at location A.
--- NOTE | ~2021-01-16 | XR_ITS ---
EXAMINATION: XR hand LT 2V DATE: 01/16/2021 10:12 INDICATION: Multiple joint pain. TECHNIQUE: 2 views of left hand were obtained. COMPARISON: None. FINDINGS: Bone alignment is normal. No fracture. There is mild osteoarthritis of first carpometacarpa l joint, fourth metacarpophalangeal joints, first interphalangeal joint, third and fifth proximal int erphalangeal joint, and second-fifth distal interphalangeal joints. IMPRESSION: 1. Mild polyarticular osteoarthritis. Reviewed, dictated and finalized at location A.
--- NOTE | ~2021-01-16 | XR_ITS ---
EXAMINATION: XR hand RT 2V DATE: 01/16/2021 10:12 INDICATION: Multiple joint pain. TECHNIQUE: 2 views of right hand were obtained. COMPARISON: None. FINDINGS: Bone alignment is normal. No fracture. There is moderate osteoarthritis of lunotriquetral j oint, mild osteoarthritis of first carpometacarpal joint, second, fourth, and fifth distal interphala ngeal joints, and most of the interphalangeal joints, and moderate osteoarthritis of second and fifth distal interphalangeal joints. IMPRESSION: 1. Polyarticular osteoarthritis. Reviewed, dictated and finalized at location A.
--- NOTE | ~2021-01-16 | XR_ITS ---
EXAMINATION: XR ankle LT 2V, XR foot LT 2V DATE: 01/16/2021 10:12 INDICATION: Multiple joint pain TECHNIQUE: 1. Anteroposterior and lateral view of the left ankle were obtained. 2. Dorsoplantar and lateral views of the left foot were obtained. COMPARISON: None. FINDINGS: Alignment of the left foot and ankle is normal. No fracture. Mild polyarticular osteoarthritis charac terized by nonuniform joint space narrowing and/or small marginal osteophytes throughout the left josé miguel t most prominent at the first metatarsophalangeal, calcaneocuboid and several tarsal metatarsal and i nterphalangeal joints. Left ankle joint space is relatively preserved with no ankle joint effusion. B union with mild hypertrophic change at the medial head of the first metatarsal. Moderate-sized Achill es and plantar calcaneal spurs. The soft tissues are unremarkable. IMPRESSION: 1. Mild polyarticular osteoarthritis with typical distribution throughout the left foot. No acute oss eous abnormality. Reviewed, dictated and finalized at location B. IMPRESSION: 1. Mild polyarticular osteoarthritis with typical distribution throughout the l eft foot. No acute osseous abnormality.
--- NOTE | ~2021-01-16 | XR_ITS ---
EXAMINATION: XR ankle RT 2V, XR foot RT 2V DATE: 01/16/2021 10:12 INDICATION: Multiple joint pain TECHNIQUE: 1. Anteroposterior and lateral view of the right ankle were obtained. 2. Dorsoplantar and lateral views of the right foot were obtained. COMPARISON: None. FINDINGS: Alignment of the right foot and ankle is normal. No fracture. Mild polyarticular osteoarthritis pranay cterized by nonuniform joint space narrowing and/or small marginal osteophytes throughout the right f oot most prominent at the first and fifth metatarsophalangeal and several tarsal metatarsal and inter phalangeal joints. Right ankle joint space is relatively preserved with no ankle joint effusion. No e rosions to suggest an inflammatory arthritis. Moderate-sized Achilles and plantar calcaneal spurs. Bu nion with mild hypertrophic change at the medial head of the first metatarsal. Mild soft tissue swell ing at the midfoot dorsal to the tarsal metatarsal joints. IMPRESSION: 1. Typical distribution mild polyarticular osteoarthritis throughout the right foot. No acute osseous abnormality. Reviewed, dictated and finalized at location B. IMPRESSION: 1. Typical distribution mild polyarticular osteoarthritis throughout the right foot. No acute osseous abnormality.
== END 2021-01-16 09:33 | disposition home or self-care (01) ==
LOC: ANHIMG 09:42
PROVIDERS: PCP Internal Medicine
DX: M53.3 Sacrococcygeal disorders, not elsewhere classified (principal); M19.031 Primary osteoarthritis, right wrist; M19.041 Primary osteoarthritis, right hand; M19.032 Primary osteoarthritis, left wrist; M19.042 Primary osteoarthritis, left hand; M19.071 Primary osteoarthritis, right ankle and foot; M19.072 Primary osteoarthritis, left ankle and foot
CPT/HCPCS: 72202; 73100; 73120; 73600; 73620

== ENCOUNTER 2021-05-29 12:03 | Emergency (ER) | payer MEDICARE, SELFPAY ==
[2021-05-29 12:15] VITALS: BP 128/55; PULSE 70; RESP 18; TEMP 36.2; O2SAT 100
--- NOTE | 2021-05-29 12:23 | ED.GENADULT ---
HPI - General Adult General Chief complaint: Extremity Injury, Lower Stated complaint: Flare up from Osteo Arthritis Time Seen by Provider: 05/29/21 12:18 Source: patient and RN notes reviewed Mode of arrival: ambulatory Limitations: no limitations History of Present Illness HPI narrative: 71-year-old female presents to the [facility] with complaints of bilateral knee pain and right SI joint pain. Patient has a history of OA and RA. States she tried calling her primary care provider and was not able to get in. Patient states the most successful treatment for her is usually a steroid pack. Also requesting 1 day off of work. Related Data Home Medications Medication Instructions Recorded Confirmed gabapentin 300 mg PO TID 05/29/21 05/29/21 hydrocodone-acetaminophen 500 tablet PO Q4-6H 05/29/21 05/29/21 Allergies Allergy/AdvReac Type Severity Reaction Status Date / Time NSAIDS (Non-Steroidal Allergy Severe Other Verified 06/30/20 09:52 Anti-Inflamma Review of Systems Review of Systems: All systems reviewed & are unremarkable except as noted in HPI and below Constitutional: Constitutional: Reports no additional constitutional complaints Eyes: Eyes: Reports no additional eye complaints ENT: Reports system reviewed and no additional complaints, except as documented Cardiovascular: Cardiovascular: Reports no additional cardiovascular complaints Respiratory: Respiratory: Reports no additional respiratory complaints Musculoskeletal: Musculoskeletal: Reports as per HPI, Reports arthralgias (Bilateral knees) and Reports joint swelling (Bilateral knees) Integumentary/Breasts: Skin/Breast: Reports system reviewed and no additional complaints, except as docu Neurologic: Reports system reviewed and no additional complaints, except as documented Psychiatric: Psychiatric: Reports no additional psychiatric complaints Allergic/Immunologic: Allergic/Immunologic: Reports no additional allergic/immunologic complaints [facility] Past Medical History Medical History (Updated 06/01/21 @ 14:55 by Gisele Dallas) Barretts esophagus Bipolar disorder Chronic back pain Coronary artery disease patient stated that she had minimal blockages and was treated medically. She sees Dr. Venegas. Cardiac catheterization in 2012 done by zachariah Da Silva showed no coronary disease and normal LV function. Depression with anxiety History of DVT (deep vein thrombosis) left lower extremity History of esophageal dilatation History of implanted metallic device spinal neural transmitter implant History of polycystic ovarian syndrome Spinal cord stimulator status Spinal stenosis SVT (supraventricular tachycardia) status post cardiac ablation 2008 Surgical History Surgical History H/O cardiac radiofrequency ablation due to SVT H/O tubal ligation History of cardiac catheterization she was told that she has minimal blockages. 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 Social History Social History (Updated 06/30/20 @ 14:59 by Marcela Pantoja NP) Social History: the patient lives with her significant other. She is a full code. She does not have a power energy attorney. She is and has 3 children. 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 she currently watches her grandchildren at. She is a lifelong nonsmoker. She does not use any illicit drugs or alcohol. Smoking status: Never smoker Alcohol intake: never Substance use: never Gender identity (if verbalized by the patient): Female Spiritual care concerns: No Comments At the time of my signature, I reviewed and agree with the nursing
== END 2021-05-29 12:30 | disposition home or self-care (01) ==
PROVIDERS: Emergency Provider Nurse Practitioner; PCP Internal Medicine
DX: M17.0 Bilateral primary osteoarthritis of knee (principal); K22.70 Barrett's esophagus without dysplasia; F31.9 Bipolar disorder, unspecified; I25.10 Atherosclerotic heart disease of native coronary artery without angina pectoris; M48.00 Spinal stenosis, site unspecified; Z86.718 Personal history of other venous thrombosis and embolism; Z96.82 Presence of neurostimulator
CPT/HCPCS: 99213; G0463

== ENCOUNTER 2021-08-05 11:17 | Emergency (ER) | payer OTHER, MEDICARE, SELFPAY ==
[2021-08-05 11:41] VITALS: BP 141/107; PULSE 89; RESP 16; TEMP 36.8; O2SAT 100
[2021-08-05 12:00] LABS: Basophils Absolute Auto 0.1 K/mm3 (0.0-0.1); Basophils Percent Auto 1.1 % (0.2-1.2); Eosinophils Absolute Auto 0.2 K/mm3 (0-0.3); Eosinophils Percent Auto 2.4 % (0-4.4); Hematocrit 36.5 % (37.0-47.0); Hemoglobin 11.8 g/dL (12.0-15.0); Immature Granulocyte Absolute 0.01 K/mm3 (0.00-0.031); Immature Granulocyte Percent A 0.2 % (0-0.5); Lymphocytes Absolute Auto 2.97 K/mm3 (0.9-3.2); Lymphocytes Percent Auto 47.2 % (18.3-44.2); Mean Corpuscular HGB Conc 32.3 g/dl (32-36); Mean Corpuscular Hemoglobin 31.6 pg (26-34); Mean Corpuscular Volume 97.6 fl (80-100); Mean Platelet Volume 10.8 fl (7.4-10.4); Monocytes Absolute Auto 0.5 K/mm3 (0.1-0.6); Monocytes Percent Auto 8.3 % (2.6-8.5); Neutrophils Absolute Auto 2.6 K/mm3 (1.3-6.7); Neutrophils Percent Auto 40.8 % (45.5-73.1); Platelet Count Result 289 k/mm3 (150-375); Red Blood Count 3.74 M/mm3 (4.2-5.4); Red Cell Distribution Width 13.7 % (11.5-14.5); White Blood Count 6.3 K/mm3 (4.5-10.0)
[2021-08-05 12:02] LABS: Add Urine Microscopic? NO; Appearance Urine Clear (Clear); Bilirubin Urine Negative (Negative); Blood Urine Negative (Negative); Color Urine Yellow (Yellow); Glucose Urine UA Negative (Negative); Ketones Urine Negative (Negative); Leukocyte Esterase Ur Negative LEU/UL (Negative); Nitrate Urine Negative (Negative); Protein Urine Negative (Negative); Urobilinogen Urine Negative mg/dL (<2.0)
[2021-08-05 12:10] LABS: Anion Gap 9 mmol/L (8-16); Blood Urea Nitrogen 12 mg/dL (7-17); Calcium 9.1 mg/dL (8.4-10.2); Carbon Dioxide 23 mmol/L (22-30); Chloride 110 mmol/L (98-107); Estimated CRCL calculation 86 ml/min; Estimated Glomerular Filt Rate > 60; Glucose 97 mg/dL (65-110); Potassium 3.9 mmol/L (3.4-5.0); Sodium 142 mmol/L (137-145)
--- NOTE | 2021-08-05 13:57 | PC.NURSE ---
pt up to intake desk. pt stating I am going to make the decision to leave. pt amb out of ed with steady gait and in no noted distress.
== END 2021-08-05 13:57 | disposition left against medical advice (07) ==
PROVIDERS: Emergency Provider Emergency Medicine; PCP Internal Medicine
DX: R10.9 Unspecified abdominal pain (principal)
CPT/HCPCS: 36415; 80048; 81003; 85025; 99199

== ENCOUNTER 2022-03-19 12:59 | Emergency (ER) | payer MEDICARE, SELFPAY ==
--- NOTE | ~2022-03-19 | CT_ITS ---
EXAMINATION: CT abdomen pelvis wo con DATE: 03/19/2022 17:17 INDICATION: right flank pain TECHNIQUE: Computed tomography (CT) of the abdomen and pelvis was performed without intravenous contr ast. Automated exposure control and iterative reconstruction technique were employed. The dose-length product was 414.98 mGy-cm. COMPARISON: None FINDINGS: Lower thorax: Senescent changes in the lungs. Mild coronary artery, aortic valve, and mitral valve ca lcification. Liver: Normal. Biliary/Gallbladder: Gallbladder is absent. No bile duct dilation. Pancreas: No mass or duct dilation. Spleen: Normal. Adrenals:No mass. Kidneys: Moderate bilateral perinephric stranding. No mass, stone, or hydronephrosis. GI tract: No small or large bowel dilation. Appendix not visualized. Mesentery/Peritoneum: No ascites, mass, or free air. Retroperitoneum: No mass. Pelvis: Pelvic organs are within normal limits. Soft Tissues: Left posterior stimulator or pump, intrathecal catheter terminates out of the field-of- view. Bones: No acute osseous finding. IMPRESSION: No acute abdominopelvic process detected. Reviewed, dictated and finalized at location K.
[2022-03-19 13:26] VITALS: BP 141/64; PULSE 74; RESP 18; TEMP 35.9; O2SAT 100
[2022-03-19 13:42] LABS: Basophils Absolute Auto 0.1 K/mm3 (0.0-0.1); Basophils Percent Auto 0.8 % (0.2-1.2); Eosinophils Absolute Auto 0.1 K/mm3 (0-0.3); Eosinophils Percent Auto 1.5 % (0-4.4); Hematocrit 36.4 % (37.0-47.0); Hemoglobin 12.2 g/dL (12.0-15.0); Immature Granulocyte Absolute 0.01 K/mm3 (0.00-0.031); Immature Granulocyte Percent A 0.2 % (0-0.5); Lymphocytes Absolute Auto 2.91 K/mm3 (0.9-3.2); Lymphocytes Percent Auto 49.2 % (18.3-44.2); Mean Corpuscular HGB Conc 33.5 g/dl (32-36); Mean Corpuscular Hemoglobin 32.4 pg (26-34); Mean Corpuscular Volume 96.8 fl (80-100); Mean Platelet Volume 11.1 fl (7.4-10.4); Monocytes Absolute Auto 0.5 K/mm3 (0.1-0.6); Monocytes Percent Auto 8.1 % (2.6-8.5); Neutrophils Absolute Auto 2.4 K/mm3 (1.3-6.7); Neutrophils Percent Auto 40.2 % (45.5-73.1); Platelet Count Result 242 k/mm3 (150-375); Red Blood Count 3.76 M/mm3 (4.2-5.4); Red Cell Distribution Width 14.3 % (11.5-14.5); White Blood Count 5.9 K/mm3 (4.5-10.0)
[2022-03-19 13:57] LABS: Alanine Aminotransferase 12 U/L (6-35); Alkaline Phosphatase 64 U/L (38-126); Anion Gap 6 mmol/L (8-16); Aspartate Amino Transferase 23 U/L (14-36); Bilirubin,Total 0.6 mg/dL (0.2-1.3); Blood Urea Nitrogen 14 mg/dL (7-17); Calcium 9.2 mg/dL (8.4-10.2); Carbon Dioxide 27 mmol/L (22-30); Chloride 98 mmol/L (98-107); Estimated CRCL calculation 75 ml/min; Estimated Glomerular Filt Rate > 60; Glucose 100 mg/dL (65-110); Potassium 5.1 mmol/L (3.4-5.0); Sodium 131 mmol/L (137-145)
[2022-03-19 14:12] LABS: Appearance Urine Clear (Clear); Bilirubin Urine Negative (Negative); Blood Urine Negative (Negative); Color Urine Yellow (Yellow); Glucose Urine UA Negative (Negative); Ketones Urine Trace mg/dL (Negative); Leukocyte Esterase Ur Negative LEU/UL (Negative); Nitrate Urine Negative (Negative); Protein Urine Negative (Negative); Specific Grav Ur 1.025 (1.001-1.035); Urobilinogen Urine 0.2 mg/dL (<2.0); pH Urine 5.5 (5.0-9.0)
[2022-03-19 14:27] LABS: Bacteria Urine Trace /hpf; Mucus Urine Rare /lpf; WBC Urine 0-3 /hpf
[2022-03-19 14:28] LABS: Add Urine Microscopic? YES
[2022-03-19 16:38] VITALS: BP 149/62; PULSE 71; RESP 15; O2SAT 100
[2022-03-19] MEDS: SODIUM CHLORIDE 0.9% IV 1,000 ML 999 ML IV CONT (17:04)
--- NOTE | 2022-03-19 17:40 | ED.ABDPAIN ---
HPI - Abdominal Pain General Chief Complaint: Abdominal Pain Stated Complaint: R UPPER ABD PAIN Time Seen by Provider: 03/19/22 16:38 Source: patient, family and RN notes reviewed Mode of arrival: ambulatory Limitations: no limitations History of Present Illness HPI narrative: 72-year-old female presenting to the emergency department for evaluation of right flank pain and right upper quadrant pain. Patient states that she is also having black tarry stools for the last 2 days. Related Data Home Medications Medication Instructions Recorded Confirmed gabapentin 300 mg capsule 300 mg PO TID 05/29/21 05/29/21 hydrocodone 5 mg-acetaminophen 325 500 tablet PO Q4-6H 05/29/21 05/29/21 mg tablet Allergies Allergy/AdvReac Type Severity Reaction Status Date / Time NSAIDS (Non-Steroidal Allergy Severe Other Verified 03/19/22 16:39 Anti-Inflamma Review of Systems Review of Systems: CONSTITUTIONAL: Denies fever, chills, or sweats. EYES: Denies visual changes, redness, or discharge. ENT: Denies rhinorrhea, congestion, sore throat, or otalgia. CARDIOVASCULAR: Denies chest pain, palpitations, or edema. RESPIRATORY: Denies cough or dyspnea. GASTROINTESTINAL: See HPI GENITOURINARY: Denies dysuria or hematuria. SKIN: Denies rash or itching. MUSCULOSKELETAL: Denies back pain, joint pain, or myalgia. NEUROLOGIC: Denies headache, numbness, or weakness. [facility] Past Medical History Medical History (Updated 03/20/22 @ 00:00 by Janel Bowen) Barretts esophagus Bipolar disorder Chronic back pain Coronary artery disease patient stated that she had minimal blockages and was treated medically. She sees Dr. Venegas. Cardiac catheterization in 2013 done by zachariah Da Silva showed no coronary disease and normal LV function. Depression with anxiety History of DVT (deep vein thrombosis) left lower extremity History of esophageal dilatation History of implanted metallic device spinal neural transmitter implant History of polycystic ovarian syndrome Spinal cord stimulator status Spinal stenosis SVT (supraventricular tachycardia) status post cardiac ablation 2008 Surgical History Surgical History H/O cardiac radiofrequency ablation due to SVT H/O tubal ligation History of cardiac catheterization she was told that she has minimal blockages. 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 Social History Social History (Updated 06/30/20 @ 14:59 by Marcela Pantoja NP) Social History: the patient lives with her significant other. She is a full code. She does not have a power commercial real estate attorney. She is and has 3 children. 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 she currently watches her grandchildren at. She is a lifelong nonsmoker. She does not use any illicit drugs or alcohol. Smoking status: Never smoker Alcohol intake: never Substance use: never Gender identity (if verbalized by the patient): Female Spiritual care concerns: No Exam Narrative: APPEARANCE: Well appearing, no pain, no distress, well-nourished. HEAD: normocephalic, atraumatic. EYES: PERRLA/EOMI, conjunctivae clear. NOSE: Normal no drainage NECK: Supple. No adenopathy, no masses. RESPIRATORY: Airway patent, respirations nonlabored. Clear to auscultation bilaterally, no rales, rhonchi, wheezing. CARDIOVASCULAR: Regular rate and rhythm without murmurs rubs or gallops. ABDOMINAL: Soft, nondistended, normal bowel sounds, upper abdominal tenderness to palpation MUSCULOSKELETAL: Moves all extremities. Strength/ROM intact, No edema, No calf tenderness. NEURO: Alert. Cranial nerves II through XII intact. Good g
[2022-03-19] MEDS: BELLADONNA ALK/PHENOB ELIX 10 ML, MAG HYDROX/ALUMINUM HYD/SIMETH 30 ML, LIDOCAINE HCL 2... PO (18:06)
[2022-03-19] MEDS: ONDANSETRON INJ 4 MG/2 ML VIAL IV PUSH (18:07)
[2022-03-19] MEDS: HYDROmorphone HCL INJ (*CRX) 1 MG/ML SYR 0.5 MG IV PUSH (18:08)
[2022-03-19] MEDS: PANTOPRAZOLE SODIUM IV 40 MG VIAL IV PUSH (18:08)
[2022-03-19 18:33] VITALS: BP 120/65; PULSE 67; RESP 18; O2SAT 96
== END 2022-03-19 18:35 | disposition home or self-care (01) ==
PROVIDERS: Emergency Medicine; Emergency Provider Emergency Medicine; PCP Internal Medicine
DX: R10.11 Right upper quadrant pain (principal); I25.10 Atherosclerotic heart disease of native coronary artery without angina pectoris; K22.70 Barrett's esophagus without dysplasia; E28.2 Polycystic ovarian syndrome; Z86.718 Personal history of other venous thrombosis and embolism
CPT/HCPCS: 36415; 74176; 80053; 81001; 85025; 96361; 96374; 96375; 99284; A9270; C9113; J1170; J2405; J7030

== ENCOUNTER 2023-04-12 01:19 | Inpatient (IN) | payer OTHER, MEDICARE, SELFPAY ==
[2023-04-12] VITALS (10 sets, daily range): BP systolic 123–177; BP diastolic 52–71; PULSE 63–103; RESP 15–20; TEMP 35.7–37.1; O2SAT 96–100; BMI 25.2
--- NOTE | ~2023-04-12 | CT_ITS ---
CT Facial Bones Clinical Indication: Right lower jaw swelling Technique: Contiguous axial scans were obtained through the facial bones followed by coronal and sagi ttal reconstructions. Dose reduction technique was used on this scan by utilizing automated exposure control and iterative reconstruction technique. The dose-length product (DLP) was 604.33 mGy-cm. Findings: No fractures are identified. The visualized paranasal sinuses are clear. Intraorbital soft tissues appear normal. There is subcutaneous soft tissue edema and swelling over the right mandible, without definite focal fluid collection. Impression: Soft tissue edema and swelling over the right mandible without definite fluid collection. Findings co uld reflect cellulitis. No definite abscess identified. No osseous abnormality clearly evident. Reviewed, dictated and finalized at [facility]. Impression: Soft tissue edema and swelling over the right mandible without definite fluid c ollection. Findings could reflect cellulitis. No definite abscess identified. No osseous abnormality clearly evident.
--- NOTE | 2023-04-12 02:25 | ED.GENADULT ---
HPI - General Adult General Chief complaint: Dental/Oral <CASSANDRA Haney Last Filed: 04/12/23 03:48> Stated complaint: facial swelling <CASSANDRA Haney Last Filed: 04/12/23 03:48> Time Seen by Provider: 04/12/23 01:27 <CASSANDRA Haney Last Filed: 04/12/23 03:48> Source: patient <CASSANDRA Haney Last Filed: 04/12/23 03:48> Mode of arrival: ambulatory <CASSANDRA Haney Last Filed: 04/12/23 03:48> Limitations: no limitations <CASSANDRA Haney Last Filed: 04/12/23 03:48> History of Present Illness HPI narrative: This is a 73-year-old female with PMH of RA, gastric bypass, Linda esophagus, CAD who presents to the ED with chief complaint of right-sided jaw swelling and pain beginning 3 days ago. Patient states that she was initially given an amoxicillin prescription by her PCP for possible dental infection. She has been taking this for the past 3 days with no relief. She states that the swelling and pain have only increased. Denies any drainage. Denies fevers, chills, nausea, vomiting. Denies any left-sided symptoms. Denies trismus or drooling. <CASSANDRA Haney Last Filed: 04/12/23 03:48> Related Data Home medications: Home Medications Medication Instructions Recorded Confirmed gabapentin 300 mg capsule 300 mg PO TID 05/29/21 05/29/21 hydrocodone 5 mg-acetaminophen 325 500 tablet PO Q4-6H 05/29/21 05/29/21 mg tablet <CASSANDRA Haney Last Filed: 04/12/23 03:48> Allergies/adverse reactions: Allergies Allergy/AdvReac Type Severity Reaction Status Date / Time NSAIDS (Non-Steroidal Allergy Severe Other Verified 03/19/22 16:39 Anti-Inflamma <CASSANDRA Haney Last Filed: 04/12/23 03:48> Review of Systems Review of Systems: CONSTITUTIONAL: Denies fever, chills, or sweats. EYES: Denies visual changes, redness, or discharge. ENT: See HPI CARDIOVASCULAR: Denies chest pain, palpitations, or edema. RESPIRATORY: Denies cough or dyspnea. GASTROINTESTINAL: Denies abdominal pain, nausea, vomiting, or diarrhea. GENITOURINARY: Denies dysuria or hematuria. SKIN: Denies rash or itching. MUSCULOSKELETAL: Denies back pain, joint pain, or myalgia. NEUROLOGIC: Denies headache, numbness, dizziness, or weakness. PSYCHIATRIC: Denies anxiety or depression. <Main Velez PA-C - Last Filed: 04/12/23 03:48> [facility] Past Medical History Medical History: Medical History (Updated 04/12/23 @ 07:22 by Sameer Sanchez MD) Barretts esophagus Bipolar disorder Chronic back pain Coronary artery disease patient stated that she had minimal blockages and was treated medically. She sees Dr. Venegas. Cardiac catheterization in [address] Da Silva showed no coronary disease and normal LV function. Depression with anxiety History of DVT (deep vein thrombosis) left lower extremity History of esophageal dilatation History of implanted metallic device spinal neural transmitter implant History of polycystic ovarian syndrome Spinal cord stimulator status Spinal stenosis SVT (supraventricular tachycardia) status post cardiac ablation 2008 <Main Velez PA-C - Last Filed: 04/12/23 03:48> Surgical History Surgical History: Surgical History H/O cardiac radiofrequency ablation due to SVT H/O tubal ligation History of cardiac catheterization she was told that she has minimal blockages. 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 <Main Velez PA-C - Last Filed: 04/12/23 03:48> Social History Social History: Social History (Up
[2023-04-12 03:28] LABS: Basophils Percent Auto 0.6 % (0.2-1.2); Eosinophils Percent Auto 0.4 % (0-4.4); Hematocrit 34.2 % (37.0-47.0); Hemoglobin 11.2 g/dL (12.0-15.0); Immature Granulocyte Absolute 0.02 K/mm3 (0.00-0.031); Immature Granulocyte Percent A 0.3 % (0-0.5); Lymphocytes Absolute Auto 1.49 K/mm3 (0.9-3.2); Lymphocytes Percent Auto 21.4 % (18.3-44.2); Mean Corpuscular HGB Conc 32.7 g/dl (32-36); Mean Corpuscular Hemoglobin 31.8 pg (26-34); Mean Corpuscular Volume 97.2 fl (80-100); Mean Platelet Volume 10.8 fl (7.4-10.4); Monocytes Absolute Auto 0.6 K/mm3 (0.1-0.6); Monocytes Percent Auto 8.6 % (2.6-8.5); Neutrophils Absolute Auto 4.8 K/mm3 (1.3-6.7); Neutrophils Percent Auto 68.7 % (45.5-73.1); Platelet Count Result 277 k/mm3 (150-375); Red Blood Count 3.52 M/mm3 (4.2-5.4)
[2023-04-12] MEDS: HYDROmorphone HCL INJ (*CRX) 1 MG/ML SYR 0.5 MG IV PUSH ×5 (03:31→19:48)
[2023-04-12] MEDS: ONDANSETRON INJ 4 MG/2 ML VIAL IV PUSH (03:31)
[2023-04-12 03:37] LABS: Alanine Aminotransferase 14 U/L (6-35); Albumin Level 3.9 g/dL (3.5-5.1); Alkaline Phosphatase 95 U/L (38-126); Anion Gap 6 mmol/L (8-16); Aspartate Amino Transferase 19 U/L (14-36); Bilirubin,Total 0.7 mg/dL (0.2-1.3); Blood Urea Nitrogen 6 mg/dL (7-17); CRP 3.4 mg/dL (<1.0); Calcium 8.7 mg/dL (8.4-10.2); Carbon Dioxide 27 mmol/L (22-30); Chloride 103 mmol/L (98-107); Estimated CRCL calculation 106 ml/min; Estimated Glomerular Filt Rate > 60; Glucose 116 mg/dL (65-110); Sodium 136 mmol/L (137-145)
--- NOTE | 2023-04-12 04:38 | PC.NURSE ---
Patient called out to nurses station stating she needed something for pain. Notified Dr. Sanchez who advised to give the patient 1,000 Tylenol IV.
[2023-04-12] MEDS: PIPERACILLN/TAZ 3.375GM/NS50ML 3.375 GM/50 ML BAG IVPB ×3 (07:56→16:59)
[2023-04-12] MEDS: HYDROcodone/acetaminophen (*CRX) 5-325 MG TABLET 1 TAB PO (08:03)
--- NOTE | 2023-04-12 08:03 | PC.NURSE ---
[place] 5-325 1 tablet given for right mouth pain 07/14.
--- NOTE | 2023-04-12 09:15 | ADMGEN ---
This patient, Neha Chu, was admitted to [facility] Surg Room 319-01. Patient/family oriented to hospital policies and general routines including ID bracelet, bed and alarms, visiting hours, pain management, procedures, bathroom and other care routines, personal items, smoking policy, room service/diet, and visiting hours. Information on how to activate the Rapid Response Team has been discussed. Patient/Family are encouraged to report perceived risks to care and to ask questions if they do not understand what they are told or what they should do.
[2023-04-12] MEDS: HYDROcodone/acetaminophen (*CRX) 10-325 MG TABLET 1 TAB PO (10:17)
--- NOTE | 2023-04-12 13:26 | PM.IMHP ---
H&P: HPI History of Present Illness Date/Time: 04/12/23 13:25 Chief Complaint: Pain and swelling on the right side of the face. Narrative: This is a 73-year-old female with chronic back pain, rheumatoid arthritis, Linda esophagus, nonobstructive coronary artery disease, and GERD who presented to the emergency department via private vehicle from home for evaluation of pain and swelling on the right side of her face. About 3 days ago she developed swelling about the jaw on the right side and she was prescribed amoxicillin by her doctor for possible dental infection (she does have caries and broken teeth on that side). Despite compliance with the antibiotics she has not noticed any improvement and in fact reports that the swelling and pain continued to worsen. She denies fever, drooling, trismus, dysphagia, shortness of breath, swelling on the floor of the mouth, and tooth sensitivity. No history of MRSA. Facial CT showed soft tissue edema and swelling over the right mandible without definite fluid collection and no identifiable abscess. In the ED she was given a dose of Zosyn she is being admitted in this setting for further IV antibiotics and supportive care. Review of Systems Review of Systems: Twelve systems were reviewed and are negative except for as per HPI. [facility] Past Medical History Medical History (Updated 04/12/23 @ 13:32 by Kecia Yanez PA-C) Barretts esophagus Bipolar disorder Chronic back pain Coronary artery disease Patient stated that she had minimal blockages and was treated medically. She sees Dr. Venegas. Cardiac catheterization in 2012 done by zachariah Da Silva showed no coronary disease and normal LV function. Deep vein thrombosis of left lower extremity Degenerative disc disease Depression with anxiety Gastroesophageal reflux disease Osteoarthritis Polycystic ovarian syndrome Rheumatoid arthritis Spinal stenosis Supraventricular tachycardia Status post ablation in 2008. Surgical History Surgical History (Updated 04/12/23 @ 13:32 by Kecia Yanez PA-C) History of appendectomy History of cardiac catheterization She was told that she has minimal blockages. History of cardiac radiofrequency ablation For supraventricular tachycardia. History of cholecystectomy History of esophageal dilatation History of gastric bypass History of oophorectomy History of tonsillectomy History of tubal ligation Status post insertion of spinal cord stimulator Family History Family History Mother Cerebrovascular accident Atrial fibrillation Father Lymphoma Skin cancer (melanoma) AD (Alzheimer's disease) Sibling No problems noted. Social History Social History (Updated 04/12/23 @ 13:33 by Kecia Yanez PA-C) Social History: Surrogate medical decision maker: Darnell Chu, spouse. Code status: Full code. Smoking status: Never smoker Alcohol intake: never Substance use: never Lack of Transportation: No Lack of Food: Never True Current Housing: I Have Housing Concerned About Future Housing: No Difficulty Paying Gas/Electric Bills: No Difficulty Paying for Meds: No Currently Unemployed: No Education: Bachelor's Degree Difficulty w/ Childcare or Family Care: No Additional living arrangements comments: Lives in [place]. Has 3 children. 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 Spiritual care concerns: No Meds Home Medications and Allergies Home Medications Medication Instructions Recorded Confirmed Type gabapentin 300 mg capsule 300 mg PO TID 05/29/21 04/12/23 History diclofenac sodium 1 % topical gel 4 g topical QID PRN Pain 04/12/23 04/12/23 History escitalopram oxalate 10 mg tablet 10 mg PO DAILY 04/12/23 04/12/23 History furosemide 20 mg tablet 20 mg PO BID PRN swelling 04/12/23 04/12/23 History hydrocodone 10 mg-acetaminophen 1
[2023-04-12] MEDS: VANCOMYCIN 1,250 MG/NS 250 ML 1,250 MG/250 ML BAG 166.67 MG IVPB (14:23)
[2023-04-12] MEDS: DICLOFENAC SODIUM 1% 100 GM GEL (*BKC) 1 APPLIC TOPICAL (14:24)
[2023-04-12] MEDS: AMPICILLIN SULB 3 GM/NS 100 ML 3 GM/100 ML VIAL IVPB (23:16)
[2023-04-12] MEDS: HYDROmorphone HCL INJ (*CRX) 1 MG/ML SYR IV PUSH (23:17)
[2023-04-13] MEDS: VANCOMYCIN 1,250 MG/NS 250 ML 1,250 MG/250 ML BAG 200 MG IVPB ×2 (02:35→14:09)
[2023-04-13] MEDS: HYDROmorphone HCL INJ (*CRX) 1 MG/ML SYR IV PUSH ×5 (02:36→18:48)
[2023-04-13 06:00] VITALS: BP 145/60; PULSE 69; RESP 16; TEMP 35.6; O2SAT 98
[2023-04-13] MEDS: AMPICILLIN SULB 3 GM/NS 100 ML 3 GM/100 ML VIAL IVPB ×3 (06:16→17:28)
[2023-04-13 06:20] LABS: Hemoglobin 10.7 g/dL (12.0-15.0); Mean Corpuscular HGB Conc 32.4 g/dl (32-36); Mean Corpuscular Hemoglobin 31.4 pg (26-34); Mean Corpuscular Volume 96.8 fl (80-100); Mean Platelet Volume 10.8 fl (7.4-10.4); Platelet Count Result 271 k/mm3 (150-375); Red Blood Count 3.41 M/mm3 (4.2-5.4); White Blood Count 5.7 K/mm3 (4.5-10.0)
[2023-04-13 06:32] LABS: Anion Gap 4 mmol/L (8-16); Blood Urea Nitrogen 5 mg/dL (7-17); Calcium 8.4 mg/dL (8.4-10.2); Carbon Dioxide 28 mmol/L (22-30); Chloride 104 mmol/L (98-107); Estimated CRCL calculation 106 ml/min; Estimated Glomerular Filt Rate > 60; Glucose 100 mg/dL (65-110); Magnesium 1.7 mg/dL (1.6-2.3); Potassium 3.9 mmol/L (3.4-5.0); Sodium 136 mmol/L (137-145)
[2023-04-13] MEDS: HYDROcodone/acetaminophen (*CRX) 5-325 MG TABLET 1 TAB PO (08:24)
[2023-04-13] MEDS: ESCITALOPRAM OXALATE 10 MG TABLET PO (08:25)
[2023-04-13] MEDS: GABAPENTIN 300 MG CAPSULE PO ×3 (08:25→17:19)
[2023-04-13 10:12] VITALS: O2SAT 96
--- NOTE | 2023-04-13 11:14 | PC.NURSE ---
Dr Danielle notified about patient concerns of increased pain, diahrrea, and unscheduled home pain medication. Doctor stated he would be rounding shortly. Patient notified about communication with physician.
[2023-04-13] MEDS: HYDROcodone/acetaminophen (*CRX) 10-325 MG TABLET 1 TAB PO ×2 (12:22→18:13)
--- NOTE | 2023-04-13 13:18 | PM.IMPN ---
Progress Note: A&P Assessment and Plan (1) Cellulitis of face: Code(s): L03.211 - Cellulitis of face Status: Acute Assessment and Plan: CT without evidence of abscess Exam without evidence of deep-seated infection Unasyn and vancomycin begun afternoon of 04/12/2023 MRSA culture pending and consider discontinuing vancomycin if negative (2) Chronic back pain: Code(s): M54.9 - Dorsalgia, unspecified; G89.29 - Other chronic pain Status: Chronic Assessment and Plan: Continue [place] 10 mg every 6 hours as needed (3) Depression with anxiety: Code(s): F41.8 - Other specified anxiety disorders Status: Chronic Assessment and Plan: Continue home regimen Subjective Date/time seen: 04/13/23 13:18 Interval history: Follow-up visit for facial cellulitis. Admitted 04/12/2023. Still with some pain in the right lower cheek and jaw region. Mild numbness of the upper lip on the right side only. Denied dental pain. Denied fevers or chills. Mild sore throat but no dysphagia or trismus. Denied chest pain shortness of breath. One episode of abdominal cramps with loose stool this morning. No nausea or vomiting. No bleeding. No complaints. No weakness or numbness. Review of Systems Review of Systems: All systems reviewed & are unremarkable except as noted in HPI and below Exam Narrative: HEENT: PERRL, sclerae nonicteric, pharyngeal mucosa pink and intact, right jaw the lower face with mild erythema and edema extending down to the right anterolateral neck but without induration and with only mild tenderness. NECK: No JVD, adenopathy, or thyromegaly CHEST: Clear to auscultation. Normal effort. HEART: NL S1/S2, regular, no murmur ABDOMEN: BS+, soft, nontender, no mass, no bruits EXTREMITIES: No cyanosis, edema, or clubbing NEUROLOGIC: CN intact and symmetric to inspection. MUSCULOSKELETAL: Tone and strength symmetric. PSYCH: Alert. Oriented to person, place, and time. Objective Data Vital Signs Vital Signs: Vital Signs - 24 hr 04/12/23 14:00 04/12/23 21:45 04/12/23 20:35 Temperature 96.5 F L 96.3 F L Pulse Rate 69 66 66 Respiratory Rate 17 16 16 Blood Pressure 127/65 146/52 H Pulse Oximetry 100 99 99 Oxygen Delivery Room Air 04/13/23 06:00 04/13/23 10:12 Temperature 96.1 F L Pulse Rate 69 Respiratory Rate 16 Blood Pressure 145/60 H Pulse Oximetry 98 96 Oxygen Delivery Room Air Intake/Output Intake/Output: Intake & Output 04/10/23 04/11/23 04/12/23 04/13/23 23:59 23:59 23:59 23:59 Intake Total 1680 1140 Output Total 400 Balance 1280 1140 Meds/Results Medications: Active Medications Generic Name Dose Route Start Last Admin Trade Name Freq PRN Reason Stop Dose Admin Acetaminophen 650 mg 04/12/23 13:38 Acetaminophen 325 Mg Tablet PO Q6H PRN Mild Pain (1-3) or Fever Hydrocodone Bitart/Acetaminophen 1 tab 04/12/23 07:52 04/13/23 08:24 Hydrocodone/Acetaminophen (*Crx) 5-325 Mg Tablet PO 1 tab Q4H PRN Administration Oral Pain Hydrocodone Bitart/Acetaminophen 1 tab 04/13/23 11:01 04/13/23 12:22 Hydrocodone/Acetaminophen (*Crx) 10-325 Mg Tablet PO 1 tab Q6H PRN Administration Pain Diclofenac Sodium 1 applic 04/12/23 13:44 04/12/23 14:24 Diclofenac Sodium 1% 100 Gm Gel (*Bkc) TOPICAL 1 applic QID PRN Administration Pain Escitalopram Oxalate 10 mg 04/13/23 09:00 04/13/23 08:25 Escitalopram Oxalate 10 Mg Tablet PO 10 mg DAILY JAZLYN Administration Furosemide 20 mg 04/12/23 13:44 Furosemide 20 Mg Tablet PO BID PRN swelling Gabapentin 300 mg 04/12/23 17:00 04/13/23 08:25 Gabapentin 300 Mg Capsule PO 300 mg TID JAZLYN Administration Hydromorphone HCl 1 mg 04/12/23 21:33 04/13/23 10:00 Hydromorphone Hcl Inj (*Crx) 1 Mg/Ml Syr IV PUSH 1 mg Q3H PRN Administration Pain Rated 7-10 Hydroxyzine Pamoate 25 mg 04/12
[2023-04-13 14:00] VITALS: BP 119/52; PULSE 74; RESP 16; TEMP 36.4; O2SAT 97
--- NOTE | 2023-04-13 14:20 | PC.NURSE ---
Dr. Danielle notified, per patient request, that patient has had several episodes of diahrrea. Awaiting new orders
[2023-04-13 21:45] VITALS: BP 129/50; PULSE 70; RESP 16; TEMP 35.7; O2SAT 98
[2023-04-14] MEDS: AMPICILLIN SULB 3 GM/NS 100 ML 3 GM/100 ML VIAL IVPB ×5 (00:44→23:41)
[2023-04-14] MEDS: HYDROmorphone HCL INJ (*CRX) 1 MG/ML SYR IV PUSH ×8 (01:40→23:41)
[2023-04-14 02:58] LABS: Vancomycin Trough 10.4 ug/mL (10.0-20.0)
[2023-04-14] MEDS: VANCOMYCIN 1,250 MG/NS 250 ML 1,250 MG/250 ML BAG 200 MG IVPB (03:24)
[2023-04-14] MEDS: HYDROcodone/acetaminophen (*CRX) 10-325 MG TABLET 1 TAB PO ×3 (03:36→16:31)
[2023-04-14 05:23] VITALS: BP 115/51; PULSE 70; RESP 18; TEMP 35.9; O2SAT 97
[2023-04-14 06:17] LABS: Hematocrit 30.8 % (37.0-47.0); Mean Corpuscular HGB Conc 32.5 g/dl (32-36); Mean Corpuscular Hemoglobin 31.6 pg (26-34); Mean Corpuscular Volume 97.5 fl (80-100); Mean Platelet Volume 10.8 fl (7.4-10.4); Platelet Count Result 276 k/mm3 (150-375); Red Blood Count 3.16 M/mm3 (4.2-5.4); Red Cell Distribution Width 13.8 % (11.5-14.5)
[2023-04-14 06:30] LABS: Anion Gap 2 mmol/L (8-16); Blood Urea Nitrogen 5 mg/dL (7-17); Calcium 8.1 mg/dL (8.4-10.2); Carbon Dioxide 29 mmol/L (22-30); Chloride 106 mmol/L (98-107); Estimated CRCL calculation 87 ml/min; Estimated Glomerular Filt Rate > 60; Glucose 94 mg/dL (65-110); Sodium 137 mmol/L (137-145)
[2023-04-14] MEDS: GABAPENTIN 300 MG CAPSULE PO ×3 (08:03→17:31)
[2023-04-14] MEDS: ESCITALOPRAM OXALATE 10 MG TABLET PO (08:03)
[2023-04-14 08:05] VITALS: O2SAT 96
--- NOTE | 2023-04-14 12:05 | PM.IMPN ---
Progress Note: A&P Assessment and Plan (1) Cellulitis of face: Code(s): L03.211 - Cellulitis of face Status: Acute Assessment and Plan: CT without evidence of abscess Exam without evidence of deep-seated infection Unasyn and vancomycin begun afternoon of 04/12/2023 MRSA culture negative 04/14 and vancomycin d/c'ed (2) Chronic back pain: Code(s): M54.9 - Dorsalgia, unspecified; G89.29 - Other chronic pain Status: Chronic Assessment and Plan: Continue [place] 10 mg every 6 hours as needed (3) Depression with anxiety: Code(s): F41.8 - Other specified anxiety disorders Status: Chronic Assessment and Plan: Continue home regimen Subjective Date/time seen: 04/14/23 12:05 Interval history: Follow-up visit for facial cellulitis. Admitted 04/12/2023. Still with excruciating pain in the right lower cheek and jaw region. Tolerated diet. Denied dental pain. Denied fevers or chills. Mild sore throat but no dysphagia or trismus. Denied chest pain shortness of breath. One episode of abdominal cramps with loose stool this morning. No nausea or vomiting. No bleeding. No complaints. No weakness or numbness. Review of Systems Review of Systems: All systems reviewed & are unremarkable except as noted in HPI and below Exam Narrative: HEENT: PERRL, sclerae nonicteric, pharyngeal mucosa pink and intact, right jaw the lower face with mild erythema and edema extending down to the right anterolateral neck but without induration and with only mild tenderness. NECK: No JVD, adenopathy, or thyromegaly CHEST: Clear to auscultation. Normal effort. HEART: NL S1/S2, regular, no murmur ABDOMEN: BS+, soft, nontender, no mass, no bruits EXTREMITIES: No cyanosis, edema, or clubbing NEUROLOGIC: CN intact and symmetric to inspection. MUSCULOSKELETAL: Tone and strength symmetric. PSYCH: Alert. Oriented to person, place, and time. Objective Data Vital Signs Vital Signs: Vital Signs - 24 hr 04/13/23 14:00 04/13/23 19:46 04/13/23 21:45 Temperature 97.5 F L 96.3 F L Pulse Rate 74 70 Respiratory Rate 16 16 Blood Pressure 119/52 L 129/50 L Pulse Oximetry 97 98 Oxygen Delivery Room Air 04/14/23 05:23 04/14/23 08:05 Temperature 96.6 F L Pulse Rate 70 Respiratory Rate 18 Blood Pressure 115/51 L Pulse Oximetry 97 96 Oxygen Delivery Room Air Intake/Output Intake/Output: Intake & Output 04/11/23 04/12/23 04/13/23 04/14/23 23:59 23:59 23:59 23:59 Intake Total 1680 2680 918 Output Total 400 0 Balance 1280 2680 918 Meds/Results Medications: Active Medications Generic Name Dose Route Start Last Admin Trade Name Freq PRN Reason Stop Dose Admin Acetaminophen 650 mg 04/12/23 13:38 Acetaminophen 325 Mg Tablet PO Q6H PRN Mild Pain (1-3) or Fever Hydrocodone Bitart/Acetaminophen 1 tab 04/12/23 07:52 04/13/23 08:24 Hydrocodone/Acetaminophen (*Crx) 5-325 Mg Tablet PO 1 tab Q4H PRN Administration Oral Pain Hydrocodone Bitart/Acetaminophen 1 tab 04/13/23 11:01 04/14/23 09:47 Hydrocodone/Acetaminophen (*Crx) 10-325 Mg Tablet PO 1 tab Q6H PRN Administration Pain Diclofenac Sodium 1 applic 04/12/23 13:44 04/12/23 14:24 Diclofenac Sodium 1% 100 Gm Gel (*Bkc) TOPICAL 1 applic QID PRN Administration Pain Escitalopram Oxalate 10 mg 04/13/23 09:00 04/14/23 08:03 Escitalopram Oxalate 10 Mg Tablet PO 10 mg DAILY JAZLYN Administration Furosemide 20 mg 04/12/23 13:44 Furosemide 20 Mg Tablet PO BID PRN swelling Gabapentin 300 mg 04/12/23 17:00 04/14/23 12:02 Gabapentin 300 Mg Capsule PO 300 mg TID JAZLYN Administration Hydromorphone HCl 1 mg 04/12/23 21:33 04/14/23 11:04 Hydromorphone Hcl Inj (*Crx) 1 Mg/Ml Syr IV PUSH 1 mg Q3H PRN Administration Pain Rated 7-10 Hydroxyzine Pamoate 25 mg 04/12/23 13:44 Hydroxyzine Pamoate 25 Mg Caps
[2023-04-14 14:00] VITALS: BP 154/60; PULSE 72; RESP 12; TEMP 36.6; O2SAT 100
[2023-04-14 21:38] VITALS: BP 119/44; PULSE 69; RESP 14; TEMP 36.3; O2SAT 98
[2023-04-14] MEDS: HYDROcodone/acetaminophen (*CRX) 5-325 MG TABLET 1 TAB PO (23:41)
[2023-04-15] MEDS: HYDROmorphone HCL INJ (*CRX) 1 MG/ML SYR IV PUSH ×4 (02:36→11:46)
[2023-04-15] MEDS: HYDROcodone/acetaminophen (*CRX) 5-325 MG TABLET 1 TAB PO (03:24)
[2023-04-15 05:40] VITALS: BP 137/55; PULSE 65; RESP 14; TEMP 36.1; O2SAT 100
[2023-04-15] MEDS: AMPICILLIN SULB 3 GM/NS 100 ML 3 GM/100 ML VIAL IVPB ×2 (05:42→11:44)
[2023-04-15 06:06] LABS: Hematocrit 34.4 % (37.0-47.0); Hemoglobin 11.1 g/dL (12.0-15.0); Mean Corpuscular HGB Conc 32.3 g/dl (32-36); Mean Corpuscular Volume 99.1 fl (80-100); Mean Platelet Volume 10.4 fl (7.4-10.4); Platelet Count Result 292 k/mm3 (150-375); Red Blood Count 3.47 M/mm3 (4.2-5.4); Red Cell Distribution Width 14.1 % (11.5-14.5); White Blood Count 5.9 K/mm3 (4.5-10.0)
[2023-04-15 06:19] LABS: Anion Gap 5 mmol/L (8-16); Blood Urea Nitrogen 4 mg/dL (7-17); Calcium 8.6 mg/dL (8.4-10.2); Carbon Dioxide 30 mmol/L (22-30); Chloride 104 mmol/L (98-107); Estimated CRCL calculation 87 ml/min; Estimated Glomerular Filt Rate > 60; Glucose 95 mg/dL (65-110); Potassium 3.9 mmol/L (3.4-5.0); Sodium 139 mmol/L (137-145)
[2023-04-15] MEDS: HYDROcodone/acetaminophen (*CRX) 10-325 MG TABLET 1 TAB PO ×2 (07:47→13:56)
[2023-04-15] MEDS: GABAPENTIN 300 MG CAPSULE PO ×3 (07:59→17:30)
[2023-04-15] MEDS: ESCITALOPRAM OXALATE 10 MG TABLET PO (07:59)
--- NOTE | 2023-04-15 12:30 | PM.IMPN ---
Progress Note: A&P Assessment and Plan (1) Cellulitis of face: Code(s): L03.211 - Cellulitis of face Status: Acute Assessment and Plan: CT without evidence of abscess Exam without evidence of deep-seated infection Unasyn and vancomycin begun afternoon of 04/12/2023 MRSA culture negative 04/14 and vancomycin d/c'ed Change to augmentin x 4 days Added oxy for breakthrough pain (2) Chronic back pain: Qualifiers: Back pain location: back pain in unspecified location Back pain laterality: unspecified Qualified Code(s): M54.9 - Dorsalgia, unspecified; G89.29 - Other chronic pain Code(s): M54.9 - Dorsalgia, unspecified; G89.29 - Other chronic pain Status: Chronic Assessment and Plan: Continue [place] 10 mg every 6 hours as needed Add oxy PRN for breakthrough (3) Depression with anxiety: Code(s): F41.8 - Other specified anxiety disorders Status: Chronic Assessment and Plan: Continue home regimen Time Spent With Patient Time: 42 minutes Time with patient: Greater than 35 minutes Subjective Date/time seen: 04/15/23 1230 Interval history: Patient stated that she was doing a little better today. She is not 100% however her pain is not excruciating her lip is still little numb on the right side it is still hard under her chin and her eye socket. She stated that is still or and ends fallen. She denies any vomiting, chest pain, shortness a breath did state that she had some nauseous see a yesterday and she also stated that she had diarrhea yesterday with vanco but since the vagus been dizzy and she has been having no issues. Her biggest concerns being sent home with no pain medicine our pain regimen. Told her that I would change the antibiotic to oral antibiotic and and different pain medicine she agreed if everything goes well she go home tomorrow. Review of Systems Review of Systems: All systems reviewed & are unremarkable except as noted in HPI and below Exam Narrative: General: well-nourished, well-appearing 73-year-old female, sitting up in bed, comfortable, NARD Neuro: awake, alert and oriented x4, speech clear, no focal neuro deficits noted HEENMT: normocephalic, atraumatic, EOMI, sclerae anicteric, moist oral mucosa, mildly swollen right jaw with induration Respiratory: Clear to auscultation bilaterally without crackles, rhonchi or wheezes, nonlabored breathing Cardio: regular rate, regular rhythm with S1-S2 Abdomen: nondistended, normoactive bowel sounds, soft, nontender to palpation Extremities: no edema, erythema, or tenderness to palpation, DP pulses 2+ bilaterally Skin: no rashes or lesions, warm and dry Psych: appropriate mood and affect, judgment and insight intact Objective Data Vital Signs Vital Signs: Vital Signs - 24 hr 04/14/23 20:00 04/14/23 21:38 04/15/23 05:40 Temperature 97.4 F L 96.9 F L Pulse Rate 69 65 Respiratory Rate 14 14 Blood Pressure 119/44 L 137/55 L Pulse Oximetry 98 100 Oxygen Delivery Room Air 04/15/23 14:00 Temperature 96.0 F L Pulse Rate 63 Respiratory Rate 16 Blood Pressure 143/60 H Pulse Oximetry 97 Oxygen Delivery Intake/Output Intake/Output: Intake & Output 04/12/23 04/13/23 04/14/23 04/15/23 23:59 23:59 23:59 23:59 Intake Total 1680 2680 2854 1708 Output Total 400 0 Balance 1280 2680 2854 1708 Meds/Results Medications: Active Medications Generic Name Dose Route Start Last Admin Trade Name Freq PRN Reason Stop Dose Admin Acetaminophen 650 mg 04/12/23 13:38 Acetaminophen 325 Mg Tablet PO Q6H PRN Mild Pain (1-3) or Fever Hydrocodone Bitart/Acetaminophen 1 tab 04/12/23 07:52 04/15/23 03:24 Hydrocodone/Acetaminophen (*Crx) 5-325 Mg Tablet PO 1 tab Q4H PRN Administration Oral Pain Hydrocodone Bitart/Acetaminophen 1 tab 04/13/23 11:01 04/15/23 13:56 Hydrocodone/Acetaminophen (*Crx) 10-
[2023-04-15 14:00] VITALS: BP 143/60; PULSE 63; RESP 16; TEMP 35.6; O2SAT 97
[2023-04-15] MEDS: oxyCODONE HCL (*CRX) 5 MG TAB IR PO ×2 (15:05→20:15)
[2023-04-15] MEDS: AMOXICILLIN/CLAVULANATE K 875-125 MG TAB 1 TABLET PO (20:15)
[2023-04-15 22:00] VITALS: BP 130/59; PULSE 89; RESP 16; TEMP 36; O2SAT 97
[2023-04-16] MEDS: oxyCODONE HCL (*CRX) 5 MG TAB IR PO ×3 (00:39→09:03)
[2023-04-16] MEDS: HYDROcodone/acetaminophen (*CRX) 10-325 MG TABLET 1 TAB PO ×4 (02:35→20:25)
[2023-04-16 06:00] VITALS: BP 126/93; PULSE 69; RESP 18; TEMP 36.6; O2SAT 98
[2023-04-16] MEDS: HYDROcodone/acetaminophen (*CRX) 5-325 MG TABLET 1 TAB PO (06:59)
[2023-04-16] MEDS: ESCITALOPRAM OXALATE 10 MG TABLET PO (09:04)
[2023-04-16] MEDS: GABAPENTIN 300 MG CAPSULE PO ×3 (09:04→18:04)
[2023-04-16] MEDS: AMOXICILLIN/CLAVULANATE K 875-125 MG TAB 1 TABLET PO ×2 (09:05→20:25)
--- NOTE | 2023-04-16 11:30 | PM.IMPN ---
Progress Note: A&P Assessment and Plan (1) Cellulitis of face: Code(s): L03.211 - Cellulitis of face Status: Acute Assessment and Plan: CT without evidence of abscess Exam without evidence of deep-seated infection Unasyn and vancomycin begun afternoon of 04/12/2023 MRSA culture negative 04/14 and vancomycin d/c'ed Change to augmentin x 4 days Added oxy for breakthrough pain Start a fentanyl patch Pain control is the biggest problem (2) Chronic back pain: Qualifiers: Back pain location: back pain in unspecified location Back pain laterality: unspecified Qualified Code(s): M54.9 - Dorsalgia, unspecified; G89.29 - Other chronic pain Code(s): M54.9 - Dorsalgia, unspecified; G89.29 - Other chronic pain Status: Chronic Assessment and Plan: Continue [place] 10 mg every 6 hours as needed Add oxy PRN for breakthrough Add on fentanyl patch for the other pain (3) Depression with anxiety: Code(s): F41.8 - Other specified anxiety disorders Status: Chronic Assessment and Plan: Continue home regimen Plan Will collect for a C.Diff Time Spent With Patient Time: 54 minutes Time with patient: Greater than 35 minutes Subjective Date/time seen: 04/16/23 113 Interval history: 04/16/231129 Patient is very upset today. She stated that she does not feel like the oxycodone is working. She stated that she called her pain clinic and she stated that if she was taking any further medications that it would void her contract. She did give the number to me. I did call and talked to the nurse Maria Alejandra who stated that the medications that are being used to treat the cellulitis will not void the contract as this is not pain that is being treated with current medications. Will order a fentanyl patch to see if this helps. She is complaining that she is still having a lot of pain in her jaw where the swelling is that is going up and down her face to her head and down her neck. She also stated that she is having an ear ache, and that her pain is not coming below a 5, and she thinks that the pain should be controlled enough to atleast come down to below a 5/10. She is also stating that she is having diarrhea. She stated that she does not think that should be sent home until her pain is better controlled. She denies any chest pain, shortness of breath, nausea, vomiting, weakness or fatigue. 04/15/23 1230 Patient stated that she was doing a little better today. She is not 100% however her pain is not excruciating her lip is still little numb on the right side it is still hard under her chin and her eye socket. She stated that is still or and ends fallen. She denies any vomiting, chest pain, shortness a breath did state that she had some nauseous see a yesterday and she also stated that she had diarrhea yesterday with vanco but since the vagus been dizzy and she has been having no issues. Her biggest concerns being sent home with no pain medicine our pain regimen. Told her that I would change the antibiotic to oral antibiotic and and different pain medicine she agreed if everything goes well she go home tomorrow. 04/14/23? 12:05 Follow-up visit for facial cellulitis.? Admitted 04/12/2023. Still with excruciating pain in the right lower cheek and jaw region.? Tolerated diet. Denied dental pain.? Denied fevers or chills. Mild sore throat but no dysphagia or trismus. Denied chest pain shortness of breath. One episode of abdominal cramps with loose stool this morning.? No nausea or vomiting.? No bleeding. No complaints. No weakness or numbness. 04/13/23? 13:18 Follow-up visit for facial cellulitis.? Admitted 04/12/2023. Still with some pain in the right lower cheek and jaw region.? Mild numbness of the upper lip on the right side only. Denied dental pain.? Denied fevers or chills. Mild sore throat but no dysphagia or trismus. Chris
[2023-04-16 14:00] VITALS: BP 130/61; PULSE 69; RESP 14; TEMP 36.5; O2SAT 99
[2023-04-16] MEDS: fentaNYL (*CRX) 25 MCG PATCH TRANSDERM (14:17)
[2023-04-16 22:00] VITALS: BP 148/63; PULSE 76; RESP 16; TEMP 36.4; O2SAT 97
--- NOTE | 2023-04-17 20:19 | PC.NURSE ---
Paper documentation exists on this patient due to [facility] downtime on 04/17/23 from 0030 to 1930 .
[2023-04-18 13:41] LABS: Hematocrit 34.6 % (37.0-47.0); Hemoglobin 11.4 g/dL (12.0-15.0); Mean Corpuscular HGB Conc 32.9 g/dl (32-36); Mean Corpuscular Hemoglobin 32.1 pg (26-34); Mean Corpuscular Volume 97.5 fl (80-100); Red Blood Count 3.55 M/mm3 (4.2-5.4); White Blood Count 4.6 K/mm3 (4.5-10.0)
[2023-04-18 13:42] LABS: Basophils Absolute Auto 0.1 K/mm3 (0.0-0.1); Basophils Percent Auto 1.3 % (0.2-1.2); Eosinophils Absolute Auto 0.1 K/mm3 (0-0.3); Eosinophils Percent Auto 3.1 % (0-4.4); Immature Granulocyte Absolute 0.01 K/mm3 (0.00-0.031); Immature Granulocyte Percent A 0.2 % (0-0.5); Lymphocytes Absolute Auto 1.72 K/mm3 (0.9-3.2); Lymphocytes Percent Auto 37.7 % (18.3-44.2); Mean Platelet Volume 10.7 fl (7.4-10.4); Monocytes Absolute Auto 0.4 K/mm3 (0.1-0.6); Monocytes Percent Auto 8.6 % (2.6-8.5); Neutrophils Absolute Auto 2.2 K/mm3 (1.3-6.7); Neutrophils Percent Auto 49.1 % (45.5-73.1); Platelet Count Result 301 k/mm3 (150-375); Red Cell Distribution Width 13.8 % (11.5-14.5)
== END 2023-04-17 18:00 | disposition home or self-care (01) | DRG 603 ==
LOC: ANHED 07:22 → ANH3MEDSUR 08:10
PROVIDERS: Internal Medicine; Physician Assistant; Admitting Provider Family Medicine; Emergency Provider Physician Assistant; PCP Nurse Practitioner Family; Visit Provider Nurse Practitioner
DX: L03.211 Cellulitis of face (principal); M54.9 Dorsalgia, unspecified; G89.29 Other chronic pain; M06.9 Rheumatoid arthritis, unspecified; I25.10 Atherosclerotic heart disease of native coronary artery without angina pectoris; K22.70 Barrett's esophagus without dysplasia; F41.8 Other specified anxiety disorders; F31.9 Bipolar disorder, unspecified; E28.2 Polycystic ovarian syndrome; M48.00 Spinal stenosis, site unspecified; Z86.718 Personal history of other venous thrombosis and embolism; Z98.84 Bariatric surgery status; Z90.49 Acquired absence of other specified parts of digestive tract
CPT/HCPCS: 36415; 70487; 80048; 80053; 80202; 83735; 85025; 85027; 86140; 87081; 96365; 96375; 96376; 99285; A9270; G0378; J0131; J0295; J1170; J2405; J2543; J3370; Q9967

== ENCOUNTER 2023-06-08 08:16 | Emergency (ER) | payer OTHER, MEDICARE, SELFPAY ==
[2023-06-08 08:26] VITALS: BP 140/77; PULSE 93; RESP 16; TEMP 36.9; O2SAT 98
--- NOTE | 2023-06-08 08:52 | ED.GENADULT ---
HPI - General Adult General Chief complaint: Skin/Abscess/Foreign Body Stated complaint: R JAW INFECTION Time Seen by Provider: 06/08/23 08:38 History of Present Illness HPI narrative: 73-year-old female present emergency department for evaluation of right-sided facial swelling. Patient does have a prior history of facial cellulitis for which she need to be admitted for antibiotics. Patient states for her initial episode that she was started on amoxicillin as outpatient but had significant worsening of her symptoms and ultimately need to be admitted for IV thank. Patient states this was approximately 3 to 4 weeks ago. Patient states that the swelling had completely improved and generally had about a 1 week period without swelling and then over the last few days patient had recurrence swelling. Patient denies any difficulty breathing or swallowing. Patient does have an infected tooth in close proximity to the facial swelling. Related Data Home Medications Medication Instructions Recorded Confirmed gabapentin 300 mg capsule 300 mg PO TID 05/29/21 04/12/23 diclofenac sodium 1 % topical gel 4 g topical QID PRN Pain 04/12/23 04/12/23 escitalopram oxalate 10 mg tablet 10 mg PO DAILY 04/12/23 04/12/23 furosemide 20 mg tablet 20 mg PO BID PRN swelling 04/12/23 04/12/23 hydrocodone 10 mg-acetaminophen 1 tablet PO Q6H PRN Pain 04/12/23 04/12/23 325 mg tablet hydroxyzine pamoate 25 mg capsule 25 mg PO DAILY PRN Anxiety 04/12/23 04/12/23 omeprazole 20 mg capsule,delayed 20 mg PO DAILY PRN Indigestion 04/12/23 04/12/23 release Allergies Allergy/AdvReac Type Severity Reaction Status Date / Time latex Allergy Intermediate Hives Verified 04/12/23 09:31 NSAIDS (Non-Steroidal AdvReac Severe Other Verified 04/12/23 09:24 Anti-Inflamma Review of Systems Review of Systems: All systems reviewed & are unremarkable except as noted in HPI and below PMFSH Past Medical History Medical History (Updated 06/08/23 @ 10:13 by Jamarcus Roberson MD) Barretts esophagus Bipolar disorder Chronic back pain Coronary artery disease Patient stated that she had minimal blockages and was treated medically. She sees Dr. Venegas. Cardiac catheterization in [address] Da Silva showed no coronary disease and normal LV function. Deep vein thrombosis of left lower extremity Degenerative disc disease Depression with anxiety Gastroesophageal reflux disease Osteoarthritis Polycystic ovarian syndrome Rheumatoid arthritis Spinal stenosis Supraventricular tachycardia Status post ablation in 2009. Surgical History Surgical History (Updated 04/12/23 @ 13:32 by Kecia Yanez PA-C) History of appendectomy History of cardiac catheterization She was told that she has minimal blockages. History of cardiac radiofrequency ablation For supraventricular tachycardia. History of cholecystectomy History of esophageal dilatation History of gastric bypass History of oophorectomy History of tonsillectomy History of tubal ligation Status post insertion of spinal cord stimulator Family History Family History Mother Cerebrovascular accident Atrial fibrillation Father Lymphoma Skin cancer (melanoma) AD (Alzheimer's disease) Sibling No problems noted. Social History Social History (Updated 04/12/23 @ 13:33 by Kecia Yanez PA-C) Social History: Surrogate medical decision maker: Darnell Chu, spouse. Code status: Full code. Smoking status: Never smoker Alcohol intake: never Substance use: never Lack of Transportation: No Lack of Food: Never True Current Housing: I Have Housing Concerned About Future Housing: No Difficulty Paying Gas/Electric Bills: No Difficulty Paying for Meds: No Currently Unemployed: No Education: Bachelor's Degree Difficulty w/ Childcare or Family Care: No Additional living arrangements comments: Lives in [place].
[2023-06-08] MEDS: CLINDAMYCIN 600 MG/D5W 50 ML 600 MG/50 ML PIGGYBACK 100 MG IVPB (09:02)
[2023-06-08] MEDS: HYDROcodone/acetaminophen (*CRX) 5-325 MG TABLET 1 TAB PO (09:02)
[2023-06-08 09:38] VITALS: BP 124/61; PULSE 66; RESP 19; O2SAT 97
[2023-06-08 10:23] VITALS: BP 106/60; PULSE 69; RESP 20; O2SAT 98
== END 2023-06-08 10:25 | disposition home or self-care (01) ==
PROVIDERS: Emergency Provider Emergency Medicine; PCP Nurse Practitioner Family
DX: L02.01 Cutaneous abscess of face (principal); I25.10 Atherosclerotic heart disease of native coronary artery without angina pectoris; E28.2 Polycystic ovarian syndrome; K22.70 Barrett's esophagus without dysplasia; K21.9 Gastro-esophageal reflux disease without esophagitis; M06.9 Rheumatoid arthritis, unspecified; M19.90 Unspecified osteoarthritis, unspecified site; F41.8 Other specified anxiety disorders; F31.9 Bipolar disorder, unspecified; Z98.84 Bariatric surgery status; Z86.718 Personal history of other venous thrombosis and embolism; Z90.49 Acquired absence of other specified parts of digestive tract
CPT/HCPCS: 96365; 99284; A9270

== ENCOUNTER 2023-09-22 17:12 | Emergency (ER) | payer OTHER, MEDICARE, SELFPAY ==
--- NOTE | ~2023-09-22 | XR_ITS ---
EXAM: XR hip LT 2V w AP pelvis DATE: 09/22/2023 18:17 HISTORY: fall, left hip pain . COMPARISON: 01/16/2021. FINDINGS: Decreased mineralization. No fracture or dislocation. No lytic or blastic lesion. Lumbar d egenerative disc disease. Moderate left and mild right hip osteoarthritis. No erosion or periosteal c hange. Soft tissues within normal limits. Electronic stimulator. IMPRESSION: No acute osseous finding in the pelvis or left hip. Reviewed, dictated and finalized at location K. SAFETY REPRESENTATIVE
--- NOTE | ~2023-09-22 | XR_ITS ---
EXAM: XR knee RT 3V, XR knee LT 3V DATE: 09/22/2023 18:17 HISTORY: fall . COMPARISON: None available. FINDINGS: Decreased mineralization. No fracture or dislocation. No lytic or blastic lesion. Tricompa rtmental bilateral knee osteoarthritis, severe in the medial compartments. No erosion or periosteal c hange. Soft tissues within normal limits. IMPRESSION: No acute osseous finding in the right or left knees. Reviewed, dictated and finalized at location K. NURSE SPEC IMPRESSION: No acute osseous finding in the right or left knees.
[2023-09-22 17:12] VITALS: BP 163/77; PULSE 77; RESP 18; TEMP 36.3; O2SAT 100
--- NOTE | 2023-09-22 17:38 | ECG_ITS ---
Measurements Intervals [place] Rate: 67 P: 7 AK: 171 QRS: 19 QRSD: 70 T: 23 QT: 386 QTc: 408 Interpretive Statements SINUS RHYTHM LOW QRS VOLTAGE IN PRECORDIAL LEADS MINIMAL Q WAVES- INFERIOR LEADS BORDERLINE T WAVE ABNORMALITY- ANTERIOR LEADS BASELINE ARTIFACT- I, II, AVR BORDERLINE ECG NO PREVIOUS ECG AVAILABLE FOR COMPARISON Electronically Signed On 09-22-2023 20:00:15 CASHIER PAYMENTS RECEIVED by Abiel Vega D.O.
--- NOTE | 2023-09-22 17:39 | ED.GENADULT ---
HPI - General Adult General Chief complaint: Fall Stated complaint: fell, chest discomfort Time Seen by Provider: 09/22/23 17:21 Source: patient Mode of arrival: ambulatory Limitations: no limitations History of Present Illness HPI narrative: This is a 73-year-old female with PMH of CAD, RA who presents to the ED with chief complaint of a fall today. Reports that she fell over a plastic toy on the ground. She states she has been having a flare-up of osteoarthritis in the knees and the fall today exacerbated this pain. She also reports pain in the left hip. She reports she was able to ambulate after the fall with pain. She reports after the fall she started having some chest tightness but the relates this to being in pain and anxious. Denies any preceding chest pain, shortness of breath. Denies LOC, numbness, weakness, speech change her vision change. Denies any further sites of pain or injury. Related Data Home Medications Medication Instructions Recorded Confirmed gabapentin 300 mg capsule 300 mg PO TID 05/29/21 04/12/23 diclofenac sodium 1 % topical gel 4 g topical QID PRN Pain 04/12/23 04/12/23 escitalopram oxalate 10 mg tablet 10 mg PO DAILY 04/12/23 04/12/23 furosemide 20 mg tablet 20 mg PO BID PRN swelling 04/12/23 04/12/23 hydrocodone 10 mg-acetaminophen 1 tablet PO Q6H PRN Pain 04/12/23 04/12/23 325 mg tablet hydroxyzine pamoate 25 mg capsule 25 mg PO DAILY PRN Anxiety 04/12/23 04/12/23 omeprazole 20 mg capsule,delayed 20 mg PO DAILY PRN Indigestion 04/12/23 04/12/23 release Allergies Allergy/AdvReac Type Severity Reaction Status Date / Time latex Allergy Intermediate Hives Verified 09/22/23 17:34 NSAIDS (Non-Steroidal AdvReac Severe Other Verified 09/22/23 17:34 Anti-Inflamma Review of Systems Review of Systems: All systems as dictated in [facility] Past Medical History Medical History (Updated 09/22/23 @ 19:36 by Main Velez PA-C) Barretts esophagus Bipolar disorder Chronic back pain Coronary artery disease Patient stated that she had minimal blockages and was treated medically. She sees Dr. Venegas. Cardiac catheterization in [address] Luten showed no coronary disease and normal LV function. Deep vein thrombosis of left lower extremity Degenerative disc disease Depression with anxiety Gastroesophageal reflux disease Osteoarthritis Polycystic ovarian syndrome Rheumatoid arthritis Spinal stenosis Supraventricular tachycardia Status post ablation in 2008. Surgical History Surgical History (Updated 04/12/23 @ 13:32 by Kecia Yanez PA-C) History of appendectomy History of cardiac catheterization She was told that she has minimal blockages. History of cardiac radiofrequency ablation For supraventricular tachycardia. History of cholecystectomy History of esophageal dilatation History of gastric bypass History of oophorectomy History of tonsillectomy History of tubal ligation Status post insertion of spinal cord stimulator Family History Family History Mother Cerebrovascular accident Atrial fibrillation Father Lymphoma Skin cancer (melanoma) AD (Alzheimer's disease) Sibling No problems noted. Social History Social History (Updated 04/12/23 @ 13:33 by Kecia Yanez PA-C) Social History: Surrogate medical decision maker: Darnell Chu, spouse. Code status: Full code. Smoking status: Never smoker Alcohol intake: never Substance use: never Lack of Transportation: No Lack of Food: Never True Current Housing: I Have Housing Concerned About Future Housing: No Difficulty Paying Gas/Electric Bills: No Difficulty Paying for Meds: No Currently Unemployed: No Education: Bachelor's Degree Difficulty w/ Childcare or Family Care: No Additional living arrangements comments: Lives in [place]. Has 3 children. Additional occupation/education comments: Ret
[2023-09-22] MEDS: MORPHINE SULFATE (*CRX) 4 MG/ML INJ IV PUSH (18:06)
[2023-09-22 19:00] VITALS: BP 166/74; PULSE 88; RESP 19; O2SAT 96
[2023-09-22] MEDS: ceFAZolin 1 GM/NS 50 ML 1 GM/50 ML BAG IVPB (19:50)
== END 2023-09-22 20:30 | disposition home or self-care (01) ==
PROVIDERS: Emergency Provider Physician Assistant; PCP Nurse Practitioner Family
DX: S89.92XA Unspecified injury of left lower leg, initial encounter (principal); S89.91XA Unspecified injury of right lower leg, initial encounter; S79.912A Unspecified injury of left hip, initial encounter; T81.41XA Infection following a procedure, superficial incisional surgical site, initial encounter; I25.10 Atherosclerotic heart disease of native coronary artery without angina pectoris; K22.70 Barrett's esophagus without dysplasia; K21.9 Gastro-esophageal reflux disease without esophagitis; E28.2 Polycystic ovarian syndrome; M06.9 Rheumatoid arthritis, unspecified; M17.0 Bilateral primary osteoarthritis of knee; F31.9 Bipolar disorder, unspecified; F41.8 Other specified anxiety disorders; Z98.84 Bariatric surgery status; Z96.82 Presence of neurostimulator; Z86.718 Personal history of other venous thrombosis and embolism; Z90.49 Acquired absence of other specified parts of digestive tract; R94.31 Abnormal electrocardiogram [ECG] [EKG]; W18.09XA Striking against other object with subsequent fall, initial encounter
CPT/HCPCS: 73502; 73562; 87070; 87147; 87181; 87186; 87205; 93005; 96365; 96375; 99284; J0690; J1100; J2270

== ENCOUNTER → 2023-10-23 10:30 | Outpatient (CLI) | payer OTHER, MEDICARE, SELFPAY ==
--- NOTE | ~2023-10-23 | CT_ITS ---
EXAMINATION: CT lumbar spine wo con DATE: 10/23/2023 10:41 INDICATION: Lumbar radicular pain. TECHNIQUE: Computed tomography (CT) of the lumbar spine was performed without intravenous contrast. A utomated exposure control and iterative reconstruction technique were employed. The dose-length produ ct was 758.38 mGy-cm. COMPARISON: CT lumbar spine 11/18/19 FINDINGS: Bone alignment is normal. Vertebral body heights are normal. There is moderately decreased disc height at L1-L2 and mildly decreased disc height at L4-L5. Partially visualized are epidural cyndi ctrodes. The following disc levels are specifically discussed: L1-L2: The disc is bulging. There is severe bilateral facet joint osteoarthritis. There is mild right and moderate left neural foraminal stenosis. There is mild central canal stenosis. L2-L3: The disc is bulging. There is severe bilateral facet joint osteoarthritis. There is mild bilat eral neural foraminal stenosis. There is mild central canal stenosis. L3-L4: The disc is bulging. There is severe bilateral facet joint osteoarthritis. There is moderate b ilateral neural foraminal stenosis. There is mild central canal stenosis. L4-L5: The disc is bulging. There is severe bilateral facet joint osteoarthritis. There is moderate a nd mild left neural foraminal stenosis. There is mild central canal stenosis. L5-S1: The disc is bulging. There is severe bilateral facet joint osteoarthritis. There is mild bilat eral neural foraminal stenosis. There is mild central canal stenosis. IMPRESSION: 1. Moderate lumbar spondylosis, stable from 11/18/2019. Reviewed, dictated and finalized at location E. NSED PRACTICAL VOCATIONAL NURSE
== END ==
PROVIDERS: PCP Nurse Practitioner Family; Visit Provider Nurse Practitioner Family
DX: M43.06 Spondylolysis, lumbar region (principal)
CPT/HCPCS: 72131

== ENCOUNTER 2025-07-30 18:55 | Emergency (ER) | payer OTHER, SELFPAY ==
--- NOTE | ~2025-07-30 | XR_ITS ---
XR hip LT 2V w AP pelvis 07/30/2025 19:56 Indication: Left hip pain. Difficulty walking. Procedure: 3 views left hip including AP pelvis Comparison: 09/22/2023 Findings: There is a left total hip arthroplasty. Prosthesis well seated without evidence for loosening. Pelvic rings intact. There is moderate osteoarthritis right hip. There is lower lumbar spondylosis. There is a battery pack with associated leads overlying the left pelvis. Impression: 1: No acute bone or joint abnormality. Reviewed, dictated and finalized at location O. Impression: 1: No acute bone or joint abnormality.
--- NOTE | ~2025-07-30 | CT_ITS ---
EXAMINATION: CT abdomen pelvis w con DATE: 07/31/2025 00:55 INDICATION: Left lower quadrant abdominal pain. TECHNIQUE: Computed tomography (CT) of the abdomen and pelvis was performed with 100 mL Omnipaque 350 intravenous contrast. Automated exposure control and iterative reconstruction technique were employed. The dose-length product was 556.81 mGy-cm. COMPARISON: CT abdomen and pelvis 03/19/2022 FINDINGS: The visualized portions of lung bases demonstrate mild atelectasis. No pleural effusion. The heart size is normal. There are coronary artery calcifications. There are calcifications aortic valve. No pericardial effusion. There is a small sliding hiatal hernia. There are changes of gastric bypass procedure. There is mild intrahepatic biliary duct dilatation, likely secondary to cholecystectomy. The spleen, pancreas, adrenal glands, and kidneys are normal. There are no dilated loops of bowel. The appendix is not visualized. There are no pathologically enlarged lymph nodes. There is no ascites. Epidural electrodes are noted. There is a total left hip arthroplasty. There is moderate lumbar spondylosis and thoracic spondylosis. IMPRESSION: 1. Small sliding hiatal hernia. Reviewed, dictated and finalized at location E.
--- OUTSIDE RECORDS SUMMARY | 2025-07-30 18:57 | XMS_ITS | Encounter Summary ---
Author Organization [facility] Healthcare Address [address] [place] [address] Care Team Providers Care Log Peeler Name Role Phone Guerita Landis Primary Care Provider [phone] Jan Littlejohn MD Unavailable [phone] Guerita Landis Primary Care Provider [phone] Miscellaneous, Not In File Primary Care Provider Unavailable Kiley Pemberton NP Primary Care Provider Reza Rose MD Unavailable [phone] Sunny Bazzi NP Unavailable [phone] Leni Lopez MA Unavailable Darnell Truong MD Unavailable [phone] Encounter Details Date Type Department Care Team (Late st Contact Info) Description 04/08/2020 Telephone [facility] [address] [place] [id number] Kishore Chin, RT Social History Tobacco Use Types Packs/Day Years Used Date Smoking Tobacco: Never Smokeless Tobacco: Never Alcohol Use Standard Drinks/Week Comments No 0 (1 standard drink = 0.6 oz pur e alcohol) PHQ-2 Answer Date Recorded PHQ-2 Score 0 06/26/2019 Comments No Sex and Gender Information Value Date Recorded Sex Assigned at Not on file Legal Sex Female 4:48 PM MISSILE CONTROL PILOT Gender Identity Female 10/13/2024 2:22 PM MISSILE CONTROL PILOT Sexual Orientation Not on file Occupation Industry Job Start Date Job End Date retired Not on file Not on file Not on file documented as of this encounter Plan of Treatment Not on file documented as of this encounter Goals Goal Patient Goal Type Associated Problems Recent Progress Patient-Stated? Author [facility] On track( 018 12:12 PM CDT) David Washington, RN Note: Increase overall activity documented as of this encounter Visit Diagnoses Not on filedocumented in this encounter Additional Health Concerns Infection Onset Date Last Indicated Resolved Time COVID: Suspected 09/28/2022 09/28/2022 09/28/2022 1:10 PM MISSILE CONTROL PILOT MRSA Comment:Dx. by Dermatology at [facility] 09/2023. 02/19/2024 02/19/2024 08/14/2024 9: 32 AM CDT documented as of this encounter Care Teams Log Peeler Relationship Specialty Start Date End Date Guerita Landis PA [address] [place] [address] PCP - General 01/22/19 06/06/20 Guerita Landis PA [address] [place] [address] PCP - General 06/07/20 11/27/21 Miscellaneous, Not In File PCP - General 11/28/21 10/09/22 Kiley Pemberton NP PCP - General Family Medicine 10/10/22 Jan Littlejohn MD [address] [facility] [place] [address] 01/22/19 Reza Rose MD [address] [place] [address] Referring Physician Physical Medicine and Rehabilitation 01/23/24 Sunny Bazzi NP [address] [facility] [address] [place] [address] Nurse Practitioner Orthopedic Surgery 02/27/24 Leni Lopez, PEDRO [address] [place] [address] [address] [place] [address] ACO Care Elevator Inspector 03/27/24 03/30/24 Darnell Truong MD [address] [facility] [address] [address] [place] [address] Surgeon Orthopedic Surgery 08/19/24 documented as of this encounter
--- OUTSIDE RECORDS SUMMARY | 2025-07-30 18:57 | XMS_ITS | Encounter Summary ---
Author Organization [facility] Healthcare Address [address] [place] [address] Care Team Providers Care Glass Processing Worker Name Role Phone Guerita Landis Primary Care Provider [phone] Jan Littlejohn MD Unavailable [phone] Guerita Landis Primary Care Provider [phone] Miscellaneous, Not In File Primary Care Provider Unavailable Kiley Pemberton NP Primary Care Provider [phone] Reza Rose MD Unavailable [phone] Sunny Bazzi NP Unavailable Leni Lopez MA Unavailable Darnell Truong MD Unavailable [phone] Encounter Details Date Type Department Care Team (Late st Contact Info) Description 03/22/2020 Telephone [facility] [address] [place] [id number] Kalie Triplett, RD Social History Tobacco Use Types Packs/Day Years Used Date Smoking Tobacco: Never Smokeless Tobacco: Never Alcohol Use Standard Drinks/Week Comments No 0 (1 standard drink = 0.6 oz pur e alcohol) PHQ-2 Answer Date Recorded PHQ-2 Score 0 06/26/2019 Comments No Sex and Gender Information Value Date Recorded Sex Assigned at Not on file Legal Sex Female 4:48 PM FRONT DESK SUPERVISOR Gender Identity Female 10/13/2024 2:22 PM FRONT DESK SUPERVISOR Sexual Orientation Not on file Occupation Industry [...] COVID: Suspected 09/28/2022 09/28/2022 09/28/2022 1:10 PM FRONT DESK SUPERVISOR MRSA Comment:Dx. by Dermatology at [facility] 09/2023. 02/19/2024 02/19/2024 08/14/2024 9: 32 AM CDT documented as of this encounter Care Teams Glass Processing Worker Relationship Specialty Start Date End Date Guerita Landis PA [address] [place] [address] PCP - General 01/22/19 06/06/20 Guerita Ladnis PA [address] [place] [address] PCP - General 06/07/20 11/27/21 Miscellaneous, Not In File PCP - General 11/28/21 10/09/22 Kiley Pemberton NP PCP - General Family Medicine 10/10/22 Jan Littlejohn MD [address] [facility] [place] [address] 01/22/19 Reza Rose MD [address] [place] [id number] Referring Physician Physical Medicine and Rehabilitation 01/23/24 Sunny Bazzi NP [address] [facility] [address] [place] [address] Nurse Practitioner Orthopedic Surgery 02/27/24 Leni Lopez MA [address] [place] [address] [address] [place] [address] ACO Care Leader Tier 03/27/24 03/30/24 Darnell Truong MD [address] [facility] [address] [place] [address] Surgeon Orthopedic Surgery 08/19/24 documented as of this encounter
--- OUTSIDE RECORDS SUMMARY | 2025-07-30 18:57 | XMS_ITS | Encounter Summary ---
Author Organization [facility] Address [facility] [place] [address] Care Team Providers Care Booth Operator Name Role Phone Iona Garner Primary Care Provider [phone] Kalyan Venegas MD Unavailable [phone] Encounter Details Date Type Department Care Team (Late Contact Info) Description 12/14/2019 [place] Message Enc [facility] Family & Internal Medicine [facility] [address] [place] [address] Iona Garner APNP [address] [place] [address] Follow Up/Update Social History Tobacco Use Types Packs/Day Years Used Date Smoking Tobacco: Never Smokeless Tobacco: Never Alcohol Use Standard Drinks/Week Comments No 0 (1 standard drink = 0.6 oz pur e alcohol) AUDIT-C Answer Date Recorded Frequency of Alcohol Consumption Never 2019 Average Number of Drinks Not on file 019 Frequency of Binge Drinking Not on file 06/2019 PHQ-2 Answer Date Recorded PHQ-2 Score 0 10/23/2019 Comments No Sex and Gender Information Value Date Recorded Sex Assigned at Not on file Legal Sex Female 4:53 PM CDT Gender Identity Not on file Sexual Orientation Not on file 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 [place] [address] Kalie Norwood, WRINGER OPERATOR [address] [place] [address] documented as of this encounter Visit Diagnoses Not on filedocumented in this encounter Additional Health Concerns Assessment Noted Time PHQ-9 Depression Total Score: 0 10/23/20 19 3:13 PM CARBON BLOCKS PRESS OPERATOR documented as of this encounter Care Teams Booth Operator Relationship Specialty Start Date End Date Iona Garner APNP [address] [place] [address] PCP - General NURSE PRACTITIONER 10/23/19 Kalyan Venegas MD [address] [facility] [address] [place] [id number] [place] Cable Worker Helper CARDIOVASCULAR DISEASE 12/09/19 documented as of this encounter
--- OUTSIDE RECORDS SUMMARY | 2025-07-30 18:57 | XMS_ITS | Encounter Summary ---
Author Organization [facility] Address [address] [place] [address] Phone Care Team Providers Care Mine Superintendent Name Role Phone Guerita Landis Primary Care Provider [phone] Jan Littlejohn MD Unavailable [phone] Guerita Landis Primary Care Provider [phone] Miscellaneous, Not In File Primary Care Provider Unavailable Kiley Pemberton NP Primary Care Provider Reza Rose MD Unavailable [phone] Sunny Bazzi NP Unavailable Leni Lopez MA Unavailable [phone] Darnell Truong MD Unavailable [phone] Encounter Details Date Type Department Care Team (Late st Contact Info) Description 03/15/2020 Orders Only [facility] Scanning, Provider Social History Tobacco Use Types Packs/Day Years Used Date Smoking Tobacco: Never Smokeless Tobacco: Never Alcohol Use Standard Drinks/Week Comments No 0 (1 standard drink = 0.6 oz pur e alcohol) PHQ-2 Answer Date Recorded PHQ-2 Score 0 06/26/2019 Comments No Sex and Gender Information Value Date Recorded Sex Assigned at Not on file Legal Sex Female 4:48 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 Gender Identity Female 10/13/2024 2:22 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 OPERATOR Sexual Orientation Not on file Occupation Industry [...] overall activity documented as of this encounter Procedures Procedure Name Priority Date/Time Associated Diagnosis Comments SCAN - RADIOLOGY/IMAGING 03/15/2020 documented in this encounter Results * SCAN - RADIOLOGY/IMAGING (03/15/2020) Anatomical Region Laterality Modality Other us Provider Scanning Final Result documented in this encounter Visit Diagnoses Not on filedocumented in this encounter Additional Health Concerns Infection Onset Date Last Indicated Resolved Time COVID: Suspected 09/28/2022 09/28/2022 09/28/2022 1:10 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 OPERATOR MRSA Comment:Dx. by Dermatology at [facility] 09/2023. 02/19/2024 02/19/2024 08/14/2024 9: 32 AM CDT documented as of this encounter Care Teams Mine Superintendent Relationship Specialty Start Date End Date Guerita Landis PA [address] [place] [address] PCP - General 01/22/19 06/06/20 Guerita Landis PA [address] [place] [address] PCP - General 06/07/20 11/27/21 Miscellaneous, Not In File PCP - General 11/28/21 10/09/22 Kiley Pemberton NP PCP - General Family Medicine 10/10/22 Jan Littlejohn MD [address] [address] 01/22/19 Reza Rose MD [address] [place] [address] Referring Physician Physical Medicine and Rehabilitation 01/23/24 Sunny Bazzi NP [address] [place] [address] [address] [place] [address] Nurse Practitioner Orthopedic Surgery 02/27/24 Leni Lopez, MA [address] [place] [address] [address] [place] [address] ACO Care Blow Up Operator 03/27/24 03/30/24 Darnell Truong MD [address] [place] [address] [address] [place] [address] Surgeon Orthopedic Surgery 08/19/24 documented as of this encounter
--- OUTSIDE RECORDS SUMMARY | 2025-07-30 18:57 | XMS_ITS | Encounter Summary ---
Author Organization [facility] Address [address] [place] [address] Phone Care Team Providers Care Screen Repairer Crusher Name Role Phone Guerita Landis Primary Care Provider [phone] Jan Littlejohn MD Unavailable [phone] Guerita Landis Primary Care Provider [phone] Miscellaneous, Not In File Primary Care Provider Unavailable Kiley Pemberton NP Primary Care Provider [phone] Reza Rose MD Unavailable [phone] Sunny Bazzi NP Unavailable [phone] Leni Lopez MA Unavailable [phone] Darnell Truong MD Unavailable [phone] Encounter Details Date Type Department Care Team (Late st Contact Info) Description 03/17/2020 Orders Only [facility] Scanning, Provider [...] on file Legal Sex Female 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 by Dermatology at [facility] 09/2023. 02/19/2024 02/19/2024 08/14/2024 9: 32 AM CDT documented as of this encounter Care Teams Screen Repairer Crusher Relationship Specialty Start Date End Date Guerita Landis PA [address] [place] [address] PCP - General 01/22/19 06/06/20 Guerita Landis PA [address] [place] [address] PCP - General 06/07/20 11/27/21 Miscellaneous, Not In File PCP - General 11/28/21 10/09/22 Kiley Pemberton NP PCP - General Family Medicine 10/10/22 Jan Littlejohn MD [address] [place] [address] 01/22/19 Reza Rose MD [address] [place] [address] Referring Physician Physical Medicine and Rehabilitation 01/23/24 Sunny Bazzi NP [address] [facility] [address] [place] [address] Nurse Practitioner Orthopedic Surgery 02/27/24 Leni Lopez MA [address] [place] [address] [address] [place] [address] ACO Care Paper Products Supervisor 03/27/24 03/30/24 Darnell Truong MD [address] [facility] [address] [place] [address] Surgeon Orthopedic Surgery 08/19/24 documented as of this encounter
--- OUTSIDE RECORDS SUMMARY | 2025-07-30 18:57 | XMS_ITS | Encounter Summary ---
Author Organization [facility] Facility Care Team Providers Care Supervisor Telephone Answering Service Name Role Phone Jan Littlejohn MD Primary Care Provider + Guerita Landis Primary Care Provider [phone] Jan Littlejohn MD Unavailable [phone] Guerita Landis Primary Care Provider [phone] Miscellaneous, Not In File Primary Care Provider Unavailable Kiley Pemberton EX CHEF Primary Care Provider [phone] Reza Rose MD Unavailable [phone] Sunny Bazzi NP Unavailable [phone] Leni Lopez MA Unavailable [phone] Darnell Truong MD Unavailable [phone] Encounter Details Date Type Department Care Team (Latest Contact Info) Description 12/13/2018 Orders Only [facility] ProviderAmarjit MD [address] [place] [address] Social History Tobacco Use Types Packs/Day Years Used Date Smoking Tobacco: Never Smokeless Tobacco: Never Alcohol Use Standard Drinks/Week Comments No 0 (1 standard drink = 0.6 oz pur e alcohol) Comments No Sex and Gender Information Value Date Recorded Sex Assigned at Not on file Legal Sex Female 4:48 PM LANDING WORKER Gender Identity Female 10/13/2024 2:22 PM LANDING WORKER Sexual Orientation Not on file Occupation Industry [...] Date/Time Associated Diagnosis Comments SCAN - LABS 12/13/2018 12:00 AM LANDING WORKER documented in this encounter Results * SCAN - LABS (12/13/2018 12:00 AM LANDING WORKER) Narrative 12/13/2018 12:00 AM LANDING WORKER Ordered by an unspecified provider. us Historical Provider Final Res ult documented in this encounter Visit Diagnoses Not on filedocumented in this encounter Additional Health Concerns Infection Onset Date Last Indicated Resolved Time COVID: Suspected 09/28/2022 09/28/2022 09/28/2022 1:10 PM LANDING WORKER MRSA Comment:Dx. by Dermatology at [facility] 09/2023. 02/19/2024 02/19/2024 08/14/2024 9: 32 AM CDT documented as of this encounter Care Teams Supervisor Telephone Answering Service Relationship Specialty Start Date End Date Jan Littlejohn MD [address] [place] [address] PCP - General 10/15/17 01/21/19 Guerita Landis PA [address] [place] [address] PCP - General 01/22/19 06/06/20 Guerita Landis PA [address] [place] [address] PCP - General 06/07/20 11/27/21 Miscellaneous, Not In File PCP - General 11/28/21 10/09/22 Kiley Pemberton NP PCP - General Family Medicine 10/10/22 Jan Littlejohn MD [address] [place] [address] 01/22/19 Reza Rose MD [address] [place] [address] Referring Physician Physical Medicine and Rehabilitation 01/23/24 Sunny Bazzi NP [address] [place] [address] [address] [place] [address] Nurse Practitioner Orthopedic Surgery 02/27/24 Leni Lopez, PEDRO [address] [place] [address] [address] [place] [address] ACO Care Commercial Management Accountant 03/27/24 03/30/24 Darnell Truong MD [address] [place] [address] [address] [place] [address] Surgeon Orthopedic Surgery 08/19/24 documented as of this encounter
--- OUTSIDE RECORDS SUMMARY | 2025-07-30 18:57 | XMS_ITS | Clinical Summary ---
Author Organization [facility] Address [address] [place] [address] Care Team Providers Care Supervisor Hydrochloric Area Name Role Phone Jan Littlejohn MD Unavailable [phone] Kiley Pemberton NP Primary Care Provider [phone] Reza Rose MD Unavailable [phone] Sunny Bazzi NP Unavailable [phone] Darnell Truong MD Unavailable [phone] Allergies Active Allergy Reactions Criticality Noted Date Comments Nsaids (Non-Steroidal Anti-Inflammatory Drug) Other (See comments) Low 05/27/2022 Patient states she cannot take Nsaids because of dysplasia.and bariatric surgery Medications cyanocobalamin (Vitamin B-12) 1,000 mcg/mL injectionIndica tions:B12 deficiency Inject 1 ML into muscle once monthly 1 mL 3 3 Active diclofenac sodium (VOLTAREN) 1 % gelIndications: Osteoarthritis Apply 4 g topically 4 (four) times a day as needed (Pain) 150 g 1 3 Active mupirocin (BACTROBAN) 2 % ointment Apply topically 3 (three) times a day 22 g 4 Active amoxicillin (AMOXIL) 500 mg tablet/capsuleI ndications:Prop hylaxis, Medical Take 4 tables (2 grams) PO 1 hour prior to dental cleanings/proced ures. 8 tablet/capsu le 1 4 Active senna-docusate (PERICOLACE) 8.6-50 mg Take 1 tablet by mouth 2 (two) times a day as needed for constipation 60 tablet 2 4 Active ascorbic acid, vitamin C, 500 mg capsule Take 500 mg by mouth daily 30 capsule 4 Active ondansetron (ZOFRAN) 8 mg tabletIndicatio ns:Prevention of Post-Operative Nausea and Vomiting Take 1 tablet (8 mg total) by mouth every 8 (eight) hours as needed for nausea or vomiting 20 tablet 2 4 Active buprenorphine-n aloxone (SUBOXONE) 8-2 mg per film 4-6 daily reported by patient 4 Active buPROPion XL (WELLBUTRIN XL) 150 mg 24 hr tablet TAKE 1 TABLET BY MOUTH ONCE DAILY IN THE MORNING 90 tablet 1 4 Active nystatin powder Apply topically as needed (rash) 15 g 1 4 Active clotrimazole-be tamethasone (LOTRISONE) cream Apply topically as needed (rash) Apply to affected area's under the breast and skin folds 45 g 1 4 Active methylPREDNISol one (Medrol, [place],) 4 mg Dosepack Take as directed on package 1 packet 4 Active oxyCODONE-aceta minophen (PERCOCET) 5-325 mg per tabletIndicatio ns:Pain Take 1-2 tablets by mouth every 8 (eight) hours as needed for pain Max 6 per day. 30 tablet 4 Active hydrOXYzine (VISTARIL) 25 mg capsule Take 1 capsule (25 mg total) by mouth daily as needed for anxiety 90 capsule 1 5 Active escitalopram (LEXAPRO) 20 mg tablet Take 1 tablet by mouth once daily 90 tablet 5 Active furosemide (LASIX) 20 mg tablet TAKE 1 TABLET BY MOUTH NEEDED FOR SWELLING 90 tablet 5 Active tiZANidine (ZANAFLEX) 2 mg tablet TAKE 1 TABLET BY MOUTH EVERY 6 HOURS NEEDED FOR MUSCLE SPASM 30 tablet 5 Active gabapentin (NEURONTIN) 300 mg capsule Take 1 capsule by mouth twice daily 180 capsule 1 5 Active Active Problems Problem Noted Date Diagnosed Date Primary osteoarthritis of left hip 08/10/2024 S/P total knee arthroplasty, left 02/26/2024 History of gastric bypass 02/26/2024 S/P total knee replacement, left 02/25/2024 Primary osteoarthritis of left knee 02/03/2024 Cellulitis, face 04/18/2023 Assessment & Plan (07/12/2023 8:02 AM CDT): Continue Cephalexin and plan with dentist. ENT referral placed for the recurrence of the infection, definitely needs to see them if tooth pulling does not correct problem. Hypotension noted, also positive for COVID, no red flag symptoms but ER precautions provided. Assessment & Plan (04/18/2023 4:07 PM CDT): Need records, these have been requested. Given the continuing systematic symptoms, I worry infection still lingering. Finish out the Augmentin as rx'd and will add in Bactrim x 5 days. Patient to update me tomorrow, if worsening then will get CBC. ER precautions discussed. Multiple joint pain 11/30/2022 Lumbar radiculopathy 11/30/2022 residential (current) use of opiate analgesic 11/05 Lumbar facet arthropathy 11/29/2022 Abnormal Pap smear of cervix 10/17/2022 Overview (10/17/2022): 12 years ago Therapeutic opioid induced constipation 10/26/20 19 DDD (degenerative disc disease), lumbar 01/23/20 19 Assessment & Plan (12/25/2023 4:43 PM MARKETING SUPPORT MANAGER): Patient does have chronic conditions that she has been on chronic pain medications. I discussed not being able to rx Hydrocodone. Patient's situation with pain management needs to improve, new referral placed for provider. I will rx Tramadol short term until she can establish with pain management/have her knee surgery. However, patient knows that I cannot do this terminal superintendent. I checked their [place] CUSTOMER MARKETING ASSISTANT sheet and database, and it was consistent with prescribed medications. Linda's esophagus with low grade dysplasia 08/2018 Overview (07/14/2018): Added automatically from request for surgery [id number] Assessment & Plan (10/09/2022 3:55 PM MARKETING SUPPORT MANAGER): Continues Omeprazole. Chest pain 05/13/2018 Colon cancer screening 09/06/2017 B12 deficiency 08/30/2017 Assessment & Plan (10/09/2022 3:54 PM MARKETING SUPPORT MANAGER): Patient was on B12 injections with prior PCP. Will get updated B12 level and likely restart. Assessment & Plan (08/30/2017 5:30 PM CDT): Patient will begin oral B12 1000 mcg tablet once daily. Repeat B12 level scheduled with routine lab in November. Hypovitaminosis D 08/30/2017 Assessment & Plan (08/30/2017 5:33 PM CDT): Patient will take 5000 units of vitamin-D daily for the next 90 days. She will take calcium with vitamin-D such as [place] or Caltrate tave-[id number]-[id number] once daily for life. We will recheck her vitamin D levels in 16 weeks. High triglycerides 08/30/2017 Assessment & Plan (08/30/2017 5:32 PM CDT): Lipid panel reviewed in detail. Encouraged increased aerobic activity. Weight loss. Decrease caloric intake. Heart healthy diet. In addition, patient will start [place] 3 fish oil once daily. Will follow up with primary care provider for routine blood work. Incomplete immunization status 08/30/2017 Assessment & Plan (08/30/2017 5:37 PM CDT): Annual influenza vaccine is up-to-date. Patient's immunization history was previously unknown. Since her last office visit with her primary care provider we received records from her prior primary care provider. She has never received a pneumonia vaccine. After obtaining her consent she was given Prevnar-13 during her office visit today. Patient inquired about shingles vaccine. She is unaware of whether or not she had the chickenpox as a child. Varicella titer will be drawn today. If titers are positive I recommend shingles vaccine. In the interim, she will check with her insurance provider to determine most cost effective location of receiving shingles vaccine. She is aware that often times it is cheaper to go to a walker and Clinic than it is to have it done in our office. If the cost is the same and she wishes to have this given in our office will be more than happy to accommodate. Interstitial cystitis 08/30/2017 Assessment & Plan (08/30/2017 5:36 PM CDT): Patient reports prior urological workup. Symptoms are well controlled on current medication regimen. She inquired about having her primary care provider take over her routine scripts instead of her urologist. As she hopes to avoid a trip in to [place]. Patient was encouraged to discuss this further with her primary care provider at her next scheduled visit. Chronic bilateral low back pain with right-sided sciatica 08/22/2017 Assessment & Plan (10/03/2023 11:01 AM MARKETING SUPPORT MANAGER): Establishing with new pain management 10/15/23. Assessment & Plan (10/18/2022 10:03 AM MARKETING SUPPORT MANAGER): Has not seen pain management since having to switch insurances, has scheduled appointment with Dr. Montana on 11/28/21. Patient was previously taking [place] for her pain from prior pain management but has not taken for about 2 months d/t insurance not covering her original pain management provider anymore. Patient's pain is not controlled, will rx Tramadol temporarily until she is able to get in with Pain Management on 11/28. Assessment & Plan (10/09/2022 3:56 PM MARKETING SUPPORT MANAGER): Pt has spinal simulator in place, needs new referral to pain management. Referral placed to Dr. Montana for [place] location. Type 2 diabetes mellitus wit hout complication, without long-term current use of insulin 08/22/2017 Assessment & Plan (10/03/2023 11:00 AM MARKETING SUPPORT MANAGER): A1c 5.9. diet controlled, continues focusing on diet/exercise. Assessment & Plan (02/21/2023 2:48 PM CDT): Diet controlled. No changes today. Assessment & Plan (10/09/2022 3:54 PM MARKETING SUPPORT MANAGER): Labs ordered Diet controlled. Obesity with body mass index 30 or greater 07/17 Right upper quadrant abdominal pain 07/17/2017 Gastroesophageal reflux disease 04/24/2017 Linda's esophagus with high grade dysplasia Non morbid obesity due to excess calories 2016 Obstructive sleep apnea 03/05/2017 Assessment & Plan (02/21/2023 2:47 PM CDT): Dx w/ mild ERMELINDA prior to her weight loss. 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 Discussed sleep medicine again but she prefers to hold off and monitor for now. Denies snoring or apneic episodes. Pulmonary hypertension 03/05/2017 Restless legs syndrome (RLS) 03/05/2017 Assessment & Plan (10/09/2022 3:56 PM MARKETING SUPPORT MANAGER): Pt taking Gabapentin. Palpitations 03/20/2014 Overview (02/06/2017): Palpitations Insomnia secondary to chronic pain 03/20/2014 Overview (02/07/2017): Insomnia Bipolar II disorder 03/20/2014 Overview (08/22/2017): Bipolar disorder Assessment & Plan (10/09/2022 3:55 PM MARKETING SUPPORT MANAGER): Currently taking Lexapro 10 mg, stable Herpes simplex type 2 infection 05/14/2011 Overview (02/07/2017): HSV-2 infection Diarrhea 07/16/2010 Diastolic dysfunction 07/15/2010 Assessment & Plan (10/18/2022 9:58 AM MARKETING SUPPORT MANAGER): Has echo scheduled for 11/06/22 and appointment with Cardiology 11/26/22. Swelling not controlled, pt fatigued but not other symptoms today. Increase Furosemide to 20 mg BID and get her labs drawn in 1 week. 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 RPR and hepatitis C will not be drawn today because the were drawn with her recent blood work. We will proceed with HIV, hepatitis a and B, HSV type specific serology, gonorrhea, chlamydia. Further direction pending these results. She understands she should receive test results whether positive or negative. Iif she has not heard from me within 3 business days she is to contact the office for review. Atherosclerosis of coronary artery 03/20/2014 05/13/2018 Overview (02/06/2017): Coronary artery disease Encounters Date Type Department Care Team Description 06/07/2025 Telephone [facility] at [address] [address] Kiley Pemberton NP 05/28/2025 Telephone [facility] at [address] [address] Kiley Pemberton NP Medical Question/Miscellaneous from Last 3 Months Immunizations Immunization Administration Dates Next Due Flucelvax Influenza Quad 08/03/2023 Hep A / Hep B 04/11/2007 Influenza, Quad, Adjuvantate d, Intramuscular 07/14/2020 Influenza, Quadrivalent, Hig h Dose, Preservative Free, Intrr 09/19/2022,09/17/2019 Influenza, Quadrivalent, Spl it, Preservative Free, Intramuscular 10/31/2014 Influenza, Trivalent, High D ose, Split, Preservative Free, Intramuscular 09/17/2019,08/22/2017 Influenza, Trivalent, IM (MDV) 08/02/2015,2006 Influenza, Unspecified 08/03/2024(Deferr ed: Patient Refused),07/11/2023(Deferred: Patient Refused),11/04/2022(Deferred: Patient Refused),08/04/2019,08/04/2017, 017,08/02/2015,10/18/2011,08/15/2009 Pneumococcal Conjugate PCV 13 08/30/2017 Pneumococcal Conjugate, Unspecified 05/12/2017,1 Tdap 11/17/2016 ZOSTER Recombinant 08/04/2019, 9,05/04/2019,04/11 Surgical History Surgery Date Site/Laterality Comments TONSILLECTOMY 11/04/1956 - 11/03/1957 TUBAL LIGATION 11/04/1990 - 11/03/1991 APPENDECTOMY 11/04/1970 - 11/03/1971 and ovarian wedge resection COLPORRHAPHY 11/04/2010 - 11/03/2011 posterior repair and TOT by Dr. Segovia CHOLECYSTECTOMY 11/04/2016 - 11/03/2017 RECTOCELE REPAIR 11/04/2012 - 11/03/2013 STOMACH SURGERY prateek en y SPINAL CORD STIMULATOR IMPLANT BARIATRIC SURGERY ESOPHAGUS SURGERY CARDIAC SURGERY several cardiac cath, no stents [place] FLUORO GUIDED INJECTION HIP LEFT 04/10/2024 Left OTHER SURGICAL HISTORY Cardiac Ablation for SVT Medical History Medical History Date Comments GERD with esophagitis DJD (degenerative joint disease) Hyperlipidemia Coronary artery disease [place] 2008 Bipolar disorder Interstitial cystitis Pulmonary hypertension (HCC) Restless leg syndrome SVT (supraventricular tachycardia) s/p ablation 2008 Pernicious anemia Positive test for herpes sim plex virus (HSV) antibody 2010 type II; no known outbreaks Abnormal Pap smear of cervix 1994 had cryotherapy Borderline personality disorder (HCC) Suicidal overdose (HCC) 2014 DVT (deep venous thrombosis) 2016 LLE History of colon polyps Linda esophagus Myocardial infarction (HCC) 2008 - ablation done ERMELINDA on CPAP no longer uses C PAP after gastric bypass and weight loss Colon polyp GERD (gastroesophageal reflux disease) Rheumatoid arthritis (HCC) Osteoporosis Peripheral neuropathy Gastric reflux Osteopenia CHF (congestive heart failure) (HCC) Depression MRSA (methicillin resistant Staphylococcus aureus) infection 08/04/2023 right forearm Infection 04/2023 Family History Medical History Relation Name Comments Alzheimer's disease Father Keith Lymphoma Father Keith Arthritis Mother Patsy Stroke Mother Patsy Arthritis Other Cancer Other one with stomac h and one with lung, but not sure which relative Stroke Other Relation Name Status Comments Father Keith Mother Patsy Other Social History Tobacco Use Types Packs/Day Years Used Date Smoking Tobacco: Never Cigarettes Passive Smoke Exposure: Never Smokeless Tobacco: Never Tobacco Cessation:Counseling Given: Not Answered Alcohol Use Standard Drinks/Week Comments No 0 (1 standard drink = 0.6 oz pur e alcohol) [facility] Utilities Answer Date Recorded In the past 12 months has th e [place], gas, oil, or water [employer] threatened to shut off services in your home? No 02/27/2024 Social Connection and Isolation Panel Answer Date Recorded In a typical week, how many times do you talk on the phone with family, friends, or neighbors? More than three times a week 02/27/2024 How often do you get togethe r with friends or relatives? More than three times a week 02/27/2024 How often do you attend [facility] or sabianism services? Never 02/27/2024 Do you belong to any clubs o r organizations such as anabaptism groups, unions, fraternal or athletic groups, or school groups? No 02/27/2024 How often do you attend meet ings of the clubs or organizations you belong to? Never 02/27/2024 Are you , , di vorced, , never , or living with a partner? 02/27/2024 AUDIT-C Answer Date Recorded Q1: How often do you have a drink containing alcohol? Never 08/12/2024 Q2: How many drinks containi ng alcohol do you have on a typical day when you are drinking? Patient does not drink Q3: How often do you have si x or more drinks on one occasion? Never 08/12/2024 Overall Financial Resource Strain (CARDIA) Answe r Date Recorded How hard is it for you to pa y for the very basics like food, housing, medical care, and heating? Not hard at all 02/27/2024 PHQ-2 Answer Date Recorded PHQ-2 Total Score (If total score is 3 or more points, staff should administer the PHQ-9) 0 08/03/2024 Hunger Vital Sign Answer Date Recorded Within the past 12 months, y ou worried that your food would run out before you got the money to buy more. Never true 02/27/20 24 Within the past 12 months, t he food you bought just didn't last and you didn't have money to get more. Never true 02/27/2024 PRAPARE - Transportation Answer Date Re corded In the past 12 months, has l ack of transportation kept you from medical appointments or from getting medications? No 02/03 In the past 12 months, has l ack of transportation kept you from meetings, work, or from getting things needed for daily living? No 02/27/2024 Housing Stability Vital Sign Answer Elliott e Recorded In the last 12 months, was t here a time when you were not able to pay the mortgage or rent on time? No 02/27/2024 In the last 12 months, how many places have you lived? 1 02/27/2024 In the last 12 months, was t here a time when you did not have a steady place to sleep or slept in a skilled nursing (including now)? No 02/27/2024 Personal Safety Answer Date Recorded Have you ever been in or are you currently in a harmful physical or emotional relationship or is someone making you feel afraid or unsafe? Denies 08/19/2024 Comments No Sex and Gender Information Value Date Recorded Sex Assigned at Not on file Legal Sex Female 4:48 PM MARKETING SUPPORT MANAGER Gender Identity Female 10/13/2024 2:22 PM MARKETING SUPPORT MANAGER Sexual Orientation Not on file Occupation Industry Job Start Date Job End Date retired Not on file Not on file Not on file Obstetrics History Para Term AB IAB SAB Ectopic Multiple Livin g Live Births 3 3 3 0 0 0 0 0 0 3 3 Date Outcome GA Total Labor Labor/2nd/3rd Weight Sex Type Anes PTL Liz A1 A5 Name Clin Term Term Term Last Filed Vital Signs Vital Sign Reading Time Taken Comments Blood Pressure 122/69 10/15/2024 10:23 AM MARKETING SUPPORT MANAGER Pulse 69 10/15/2024 10:23 AM MARKETING SUPPORT MANAGER Temperature 36.6 C (97.8 F) 08/19/2024 3:11 PM CDT Respiratory Rate 16 08/19/2024 3:11 PM CDT Oxygen Saturation 97% 08/19/2024 3:11 PM CDT Inhaled Oxygen Concentration - - Weight 77.1 kg (170 lb) 10/15/2024 10:23 AM MARKETING SUPPORT MANAGER Height 172.7 cm (5' 8) 10/15/2024 10:23 AM MARKETING SUPPORT MANAGER Body Mass Index 25.85 10/15/2024 10:23 AM MARKETING SUPPORT MANAGER Plan of Treatment Health Maintenance Due Date Last Done Comments Osteoporosis Screening-Bone Density Scan 1950 Pneumococcal vaccine 65+ (2 of 2 - PPSV23, PCV20, or PCV21) 10/25/2017 08/30/2017, 05/12/2017, 08/15/2009 Well Visit 65+ 10/17/2018 10/17/2017, 08/22/2017 Breast Cancer Screening-Mammogram 07/01/2019 018 Colon Cancer Screening-Colonoscopy 01/13/2021 01/13/2018, 07/25/2011, 07/25/2011 Foot Exam 02/21/2024 02/20/2023, 08/22/2017 Dilated Eye Exam 09/25/2024 09/25/2023 Albumin Creatinine Ratio, Urine 09/30/2024 , 11/06/2022 Lipid Panel 09/30/2024 09/30/2023, 01/2023, 06/05/2022, Additional history exists Hemoglobin A1C 01/19/2025 07/22/2024, 09/05, 11/06/2022, Additional history exists Covid-19 Vaccine ( - 2024-2 6 season) 2025 01/12/2021, 12/16/2020 Influenza Vaccine (#1) 2025 , 08/03/2023, 09/19/2022, Additional history exists eGFR 07/22/2025 07/22/2024, 03/05, 02/26/2024, Additional history exists Depression Screening 08/03/2025 08/03/2024, 01/23/2024, 12/25/2023, Additional history exists Fall Risk Assessment 08/10/2025 08/10/2024, 08/03/2024, 02/27/2024, Additional history exists DTaP/Tdap/Td Vaccine (2 - Td or Tdap) 11/17/2026 11/17/2016 Hepatitis B Screening Completed 04/11/2007 Hepatitis C Screening Completed 08/22/2017 Colon Cancer Screening-CT Colonography Discontinued 01/13/2018, 07/25/2011, 07/25/2011 Colon Cancer Screening-DNA Stool Discontinued 01/13/2018, 07/25/2011, 07/25/2011 Colon Cancer Screening-FIT Discontinued 01/13, 07/25/2011, 07/25/2011 Colon Cancer Screening-Sigmoidoscopy Discontinued 01/13/2018, 07/25/2011, 07/25/2011 Zoster Vaccine Completed 08/04/2019, 07/06, 05/04/2019, Additional history exists Goals Goal Patient Goal Type Associated Problems Recent Progress Patient-Stated? Author [facility] On track( 018 12:12 PM CDT) David Washington, RN Note: Increase overall activity Medical Devices Implanted Type Area Whip Sawyer Device Identifier Shelf Expiration Date Model / Serial / Lot Neurostimulator- 06/24/2019 Implanted:2018 by Edson Hung MD (Quantity not on file) Neurostimulator Back Medtronic Neuro [id number] / [id number] / Neurostimulator Lead-06/24/2019 Implanted:2018 by Edson Hung MD (Quantity not on file) Neurostimulator Back Medtronic Neuro [id number] / / [employer] Attune Cruciate Retain Cementless Knee Left 6 Component Femoral [id number] - [id number] Implanted:Qty: 1 on 02/25/2024 by Abdullahi Vidales MD at [facility] Left: Knee [employer] 01/01/2034 [id number] / / [id number] [employer] Attune Fb Tib Base Sz 5 Por [id number] - [id number] Implanted:Qty: 1 on 02/25/2024 by Abdullahi Vidales MD at [facility] Left: Knee [employer] 10/03/2024 [id number] / / [id number] [employer] Insert Tibial Knee Fixed Lm Posterior Stabilized Attune 5mm Size 6 Polyethylene [id number] - [id number] Implanted:Qty: 1 on 02/25/2024 by Abdullahi Vidales MD at [facility] Left: Knee [employer] 10/03/2031 [id number] / / [id number] [employer] Actis 115mm Collar Hip 10 12/14 High Offset Taper Stem Femoral [id number] - [id number] Implanted:Qty: 1 on 08/19/2024 by Darnell Truong MD at [facility] Left: Hip [employer] [id number] 03/03/2034 [id number] / / [id number] [employer] Articul/Oumar 36mm Cementless Hip +5mm /14 Taper Head Femoral Latex Free [id number] - [id number] Implanted:Qty: 1 on 08/19/2024 by Darnell Truong MD at [facility] Left: Hip [employer] [id number] 05/03/2029 [id number] / / [id number] [employer] Hortense 54mm 36mm Hip Neutral Liner Acetabular Altrx Sterile Latex Free [id number] - [id number] Implanted:Qty: 1 on 08/19/2024 by Darnell Truong MD at [facility] Left: Hip [employer] [id number] 05/03/2029 [id number] / / [id number] [employer] Hortense 54mm Sector Hip Shell Acetabular Gription Sterile Latex Free [id number] - [id number] Implanted:Qty: 1 on 08/19/2024 by Darnell Truong MD at [facility] Left: Hip [employer] [id number] 03/03/2034 [id number] / / [id number] [employer] Hortense 6.5mm 25mm Acetabular Cancellous Screw Bone Sterile 1217-25-500 - [id number] Implanted:Qty: 1 on 08/19/2024 by Darnell Truong MD at [facility] Left: Hip [employer] [id number] 04/03/2034 0 / / [id number] [employer] Hortense 6.5mm 35mm Acetabular Cancellous Screw Bone Sterile 1217-35-500 - [id number] Implanted:Qty: 1 on 08/19/2024 by Darnell Truong MD at [facility] Left: Hip [employer] [id number] 04/03/2034 0 / / [id number] Procedures Procedure Name Priority Date/Time Associated Diagnosis Comments EGFR Routine 07/22/2024 10:50 AM CDT Pre-operative exam HEMOGLOBIN A1C Routine 07/22/2024 10:50 AM CDT Pre-operative exam LIPID PANEL Routine 09/30/2023 8:04 AM MARKETING SUPPORT MANAGER Type 2 diabetes mellitus without complication, without long-term current use of insulin (HCC) ALBUMIN CREATININE RATIO, URINE Routine 09/30/2023 8:04 AM MARKETING SUPPORT MANAGER Type 2 diabetes mellitus without complication, without long-term current use of insulin (HCC) HM DIABETES EYE EXAM Routine 09/25/2023 SCREENING MAMMOGRAM 2D BILATERAL Schedule Routine, Read Routine (OP Routine) 07/01/2018 8:43 AM CDT Screening breast examination COLONOSCOPY REPORT 01/13/2018 HEPATITIS C AB REFLEX RNA QUANT PCR Routine 08/22/2017 1:16 PM CDT from Last 3 Months or Most Recently Relevant to Health Maintenance Results * eGFR (07/22/2024 10:50 AM CDT) eGFR >90 >=60 mL/min/1. 73 m2 Comment: Interpretive Data Reference Interval Normal >/= 90 mL/min/1.73m2 Mildly decreased* 60 - 89 mL/min/1.73m2 Mildly to moderately decreased 45 - 59 mL/min/1.73m2 Moderately to severely decreased 30 - 44 mL/min/1.73m2 Severely decreased 15 - 29 mL/min/1.73m2 Kidney Failure < 15 mL/min/1.73m2 *Relative to young adult level Estimated glomerular filtration rate is determined by the 2020 CKD-EPI equation recommended by the National Kidney Foundation (A Unifying Approach to GFR Estimation: Recommendations of the NKF-ASK Task Force on Reassessing the Inclusion of Race in Diagnosing Kidney Disease, JASN 2020). The CKD-EPI equation should not be used for patients with unstable renal function and has not been validated in children and those over 70. Current interpretive data was last reviewed 2021. Blood 07/22/2024 10:5 0 AM CDT 07/22/2024 11:05 AM CDT Darnell Truong MD LAB BLOOD ORDERABLES Fin al Result Performing Organization Address City/[facility] Co de Phone Number MICHELLE BARLOW ([place]) [address] [facility] [place] [address] * (ABNORMAL) Hemoglobin A1c (07/22/2024 10:50 AM CDT) Hgb A1C 5.7(H) 4.0 - 5.6 % Estimated Average Glucose 117 mg/dL MICHELLE BARLOW ([place]) Comment: The ADA recommends reporting an estimated Average Glucose (eAG) with all Hemoglobin A1c results using the equation derived from a study of 507 normal and diabetic adults. Minority populations were underrepresented and children were not included. (Diabetes Care 31:0054-0548, 2008). The eAG is not equivalent to a fasting glucose. Blood 07/22/2024 10:5 0 AM CDT 07/22/2024 11:05 AM CDT Darnell Truong MD LAB BLOOD ORDERABLES Fin al Result Performing Organization Address City/[facility]/ZIP Co de Phone Number MICHELLE [facility] ([place]) [address] [facility] [place] [address] * Albumin Creatinine Ratio, Urine (09/30/2023 8:04 AM MARKETING SUPPORT MANAGER) Albumin Ur <12.0 mg/L MICHELLE Comment: Interpretive Data No reference range established. Current interpretive data was last revised 2019. Creatinine Ur 23.0 mg/dL MICHELLE Comment: Interpretive Data No reference range established. Current interpretive data was last revised 2019. Albumin Creatinine Ratio, Ur See Comment 1 - 29 MICHELLE CRAVEN Comment:Unable to calculate Urine 09/30/2023 8:04 AM MARKETING SUPPORT MANAGER 09/30/2023 2:17 PM MARKETING SUPPORT MANAGER us Kiley Pemberton NP LAB URINE ORDERABLES Final Resul t MICHELLE CRAVEN [id number] Department [place] [address] * Lipid panel (09/30/2023 8:04 AM MARKETING SUPPORT MANAGER) Cholesterol 150 30 - 199 mg/dL MICHELLE CRAVEN Comment: Interpretive Data Ages < or = 19 years Acceptable: <170 mg/dL Borderline high: 170-199 mg/dL High: >or= 200 mg/dL Ages > or = 20 years Desirable: <200 mg/dL Borderline high: 200-239 mg/dL High: >or= 240 mg/dL Literature References: 1. Expert Panel on Integrated Guidelines for Cardiovascular Health and Risk Reduction in Children and Adolescents. Pediatrics 2011;128:S213 2. NCEP Expert Panel. Circulation 2004;110:227 Current Interpretive Data was last revised on 2018. Triglycerides 104 <=149 mg/dL MICHELLE CRAVEN Comment: Interpretive Data Ages < or = 9 years Acceptable: <75 mg/dL Borderline high: 75-99 mg/dL High: >or= 100 mg/dL Ages 10 to 20 years Acceptable: <90 mg/dL Borderline high: 90-129 mg/dL High: >or= 130 mg/dL Ages > or = 20 years Desirable: <150 mg/dL Borderline high: 150-199 mg/dL High: 200-499 mg/dL Very high: >or= 499 mg/dL Literature References: 1. Expert Panel on Integrated Guidelines for Cardiovascular Health and Risk Reduction in Children and Adolescents. Pediatrics 2011;128:S213 2. NCEP Expert Panel. Circulation 2004;110:227 Current Interpretive Data was last revised on 2018. HDL 65 >=40 mg/dL MICHELLE CRAVEN Comment: Interpretive Data Ages < or = 19 years Acceptable: >45 mg/dL Borderline low: 40-45 mg/dL Low: <40 mg/dL Ages > or = 20 years Desirable: >or= 60 mg/dL Low: <40 mg/dL Literature References: 1. Expert Panel on Integrated Guidelines for Cardiovascular Health and Risk Reduction in Children and Adolescents. Pediatrics 2011;128:S213 2. NCEP Expert Panel. Circulation 2004;110:227 Current Interpretive Data was last revised on 2018. LDL, calculated 64 <=129 mg/dL MICHELLE CRAVEN Comment: Interpretive Data Ages < or = 19 years Acceptable: <110 mg/dL Borderline high: 110-129 mg/dL High: >or= 130 mg/dL Ages > or = 20 years Optimal: <100 mg/dL Near optimal: 100-129 mg/dL Borderline high: 130-159 mg/dL High: >160 mg/dL Literature References: 1. Expert Panel on Integrated Guidelines for Cardiovascular Health and Risk Reduction in Children and Adolescents. Pediatrics 2011;128:S213 2. NCEP Expert Panel. Circulation 2004;110:227 Current Interpretive Data was last revised on 2018. Non-HDL Cholesterol 85 mg/dL MICHELLE CRAVEN Comment: Interpretive Data Ages < or = 19 years Acceptable: <120 mg/dL Borderline high: 120-144 mg/dL High: >145 mg/dL Ages > or = 20 years When triglycerides are >200 mg/dL, Non-HDL cholesterol is a secondary target of therapy with treatment goals that are 30 mg/dL greater than the LDL cholesterol target. Literature References: 1. Expert Panel on Integrated Guidelines for Cardiovascular Health and Risk Reduction in Children and Adolescents. Pediatrics 2011;128:S213 2. NCEP Expert Panel. Circulation 2004;110:227 Current Interpretive Data was last revised on 2018. Chol/HDL ratio 2 MICHELLE CRAVEN Blood 09/30/2023 8:04 AM MARKETING SUPPORT MANAGER 09/30/2023 2:17 PM MARKETING SUPPORT MANAGER us Kiley Pemberton BUSINESS BANKING REPRESENTATIVE LAB BLOOD ORDERABLES Final Resul t MICHELLE CRAVEN [id number] Department [place] [address] * DIABETES EYE EXAM (09/25/2023) Historical Provider HEALTH MAINTENANCE Final Result * Screening Mammogram 2D Bilateral (07/01/2018 8:43 AM CDT) Anatomical Region Laterality Modality Breast Bilateral Mammography Impressions 07/04/2018 2:48 PM CDT There is no mammographic evidence of malignancy. Screening mammogram in 1 year is recommended. BI-RADS Category 1: Negative Narrative 07/04/2018 2:48 PM CDT BILATERAL DIGITAL MAMMOGRAPHY The present examination has been compared to prior imaging studies dated 02/06/2017 and 09/24/2014. Mammogram Findings CAD (computer-aided detection) software was utilized. The breasts are almost entirely fat. No masses, significant calcifications or other abnormalities are seen. Kirsten Mckeon MD IMG MAMMO PROCEDURE S Final Result * COLONOSCOPY REPORT (01/13/2018) Anatomical Region Laterality Modality Other Provider Scanning GI PROCEDURE ORDERABLES Edited Result - Final * Hepatitis C Antibody Reflex Hepatitis C RNA Quantitative PCR (08/22/2017 1:16 PM CDT) Hep C Ab Negative Negative MICHELLE CRAVEN Blood specimen (specimen) 08/22/2017 1:16 PM CDT 08/22/2017 7:36 PM CDT Jan Littlejohn MD LAB MICROBIOLOGY - GENER AL ORDERABLES Final Result MICHELLE [address] Department [place] [address] from Last 3 Months or Most Recently Relevant to Health Maintenance Insurance [facility]IC[facility] ADVANTAGE CHOICE [place] [id number] Advance Directives For more information, please contact: [phone] * Full Code (Latest Code Status on File) Date Activated Date Inactivated Comments 08/19/2024 11:12 AM 08/19/2024 7:38 PM * Full Code Date Activated Date Inactivated Comments 02/25/2024 1:58 PM 02/27/2024 7:35 PM * Full Code Date Activated Date Inactivated Comments 06/07/2020 8:29 AM 06/07/2020 2:36 PM * Full Code Date Activated Date Inactivated Comments 12/26/2018 10:43 AM 12/26/2018 6:16 PM * Full Code Date Activated Date Inactivated Comments 05/12/2018 10:04 PM 05/13/2018 9:18 PM Care Teams Supervisor Hydrochloric Area Relationship Specialty Start Date End Date Kiley Pemberton NP [address] [facility] [place] [address] PCP - General Family Medicine 10/10/22 Jan Littlejohn MD [address] [facility] [place] [address] 01/22/19 Reza Rose MD [address] [place] [address] Referring Physician Physical Medicine and Rehabilitation 01/23/24 Sunny Bazzi, ADILSON [address] [facility] [address] [address] Nurse Practitioner Orthopedic Surgery 02/27/24 Darnell Truong MD [address] [place] [address] [address] [place] [address] Surgeon Orthopedic Surgery 08/19/24
--- OUTSIDE RECORDS SUMMARY | 2025-07-30 18:58 | XMS_ITS | Clinical Summary ---
Author Organization [facility] Address [address] [place] [address] Phone Care Team Providers Care Him Specialist Name Role Phone Unavailable Primary Care Provider Unavailabl e Allergies Active Allergy Reactions Criticality Noted Date Comments Methylprednisolone Other (see Comments) 021 History of gastric bypass and esophageal ablation. Nsaids Other (see Comments) 03/05/2017 Tears up stomach Nsaids Other (see Comments) 10/05/2021 History of gastric bypass and esophageal ablation. Oxcarbazepine Other (see Comments) 03/05/2017 UNABLE TO URINATE Prednisone Other (see Comments) 10/05/2021 Has had gastric bypass Medications buPROPion SR (WELLBUTRIN SR) 100 MG TABLET SR 12 HR TK 1 T PO QAM 1 7 Active divalproex (DEPAKOTE ER) 500 MG TABLET SR 24 HR TK 2 TS PO QHS 1 7 Active omeprazole (PRILOSEC) 40 MG CAPSULE DELAYED RELEASE TK 1 C PO BID 1 7 Active gabapentin (NEURONTIN) 300 MG Capsule TAKE 1 CAPSULE BY MOUTH TWICE A DAY 60 Cap 2 9 Active temazepam (RESTORIL) 15 MG Capsule TAKE 2 CAPSULES BY MOUTH EVERY DAY AT BEDTIME NEEDED SLEEP 60 Cap 9 Active Additional Information Patient not taking.Reported on 08/17/2020 HYDROcodone-ashwin taminophen (NORCO) 5-325 MG Tablet Take 1 Tab by mouth every 4 hours as needed. Active FAMOTIDINE PO Take 40 mg by mouth. Active acetaminophen (TYLENOL) 500 MG Tablet Take 1,000 mg by mouth every 4 hours as needed. Active Dextromethorpha n-guaiFENesin (ROBITUSSIN DM PO) Take by mouth. Activ e HYDROcodone-ashwin taminophen (NORCO) 5-325 MG Tablet Take 1 Tablet by mouth every 4 hours as needed. Active Active Problems Problem Noted Date Diagnosed Date Obstructive sleep apnea 03/05/2017 Restless legs syndrome (RLS) 03/05/2017 Non morbid obesity due to excess calories 2016 Pulmonary hypertension 03/05/2017 Linda's esophagus with high grade dysplasia Bipolar disorder, unspecified 03/22/2016 Family History Medical History Relation Name Comments Stroke Mother Relation Name Status Comments Brother Alive Father Alive Mother Alive Sister Alive Social History Tobacco Use Types Packs/Day Years Used Date Smoking Tobacco: Never Smokeless Tobacco: Never Tobacco Cessation:Counseling Given: No Alcohol Use Standard Drinks/Week Comments No 0 (1 standard drink = 0.6 oz pur e alcohol) Comments No Sex and Gender Information Value Date Recorded Sex Assigned at Not on file Legal Sex Female 11:53 PM CDT Gender Identity Not on file Sexual Orientation Not on file Occupation Industry Job Start Date Job End Date disabled Not on file Not on file Not on file Last Filed Vital Signs Vital Sign Reading Time Taken Comments Blood Pressure 118/58 10/05/2021 3:35 PM INSPECTOR CASING Pulse 75 10/05/2021 3:35 PM INSPECTOR CASING Temperature 36.2 C (97.2 F) 10/05/2021 3:35 PM INSPECTOR CASING Respiratory Rate 16 10/05/2021 3:35 PM INSPECTOR CASING Oxygen Saturation 99% 10/05/2021 3:35 PM INSPECTOR CASING Inhaled Oxygen Concentration - - Weight 74.4 kg (164 lb) 10/05/2021 3:35 PM INSPECTOR CASING Height 172.7 cm (5' 8) 07/15/2018 9:58 AM CDT Body Mass Index 24.94 07/15/2018 9:58 AM CDT Plan of Treatment Health Maintenance Due Date Last Done Comments DEXA Bone Density 1950 Hepatitis C Virus (HCV) Screening 1950 Mammogram 1950 TdaP Immunization 1950 Cologuard 02/08/1997 Colonoscopy 02/08/1997 Colorectal Cancer Screening 02/08/1997 Immunochemical Fecal Occult Blood 02/08/1997 Zoster Immunization (1 of 2) 02/08/2002 Respiratory Syncytial Virus (RSV) Immunization (Adult) (1 - Risk 60-74 years 1-dose series) 2012 Pneumococcal Immunization (5 0+ years) (2 of 2 - PCV) 08/16/2016 08/16/2015 SARS-COV-2 Immunization ( season) 2024 01/12/2021, 12/16/2020 Influenza Immunization (#1) 2025 Pneumococcal Immunization Combined Discontinued 08/16/2015 Hepatitis B Immunization Aged Out No longer eligible based on patient's age to complete this topic Human Papillomavirus (HPV) Immunization Aged Out No longer eligible based on patient's age to complete this topic Meningococcal Immunization (ACWY) Aged Out No longer eligible based on patient's age to complete this topic Rotavirus Immunization Aged Out No lo nger eligible based on patient's age to complete this topic Insurance MEDICARE [facility]
--- OUTSIDE RECORDS SUMMARY | 2025-07-30 18:58 | XMS_ITS | Encounter Summary ---
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 file Not on file Not on file documented as of this encounter Plan of Treatment Upcoming Encounters Date Type Department Care Team (Late st Contact Info) Description 10/26/2025 9:40 AM CEMENT BLOCK MAKER Office Visit [facility] - [address] [place] [address] Kalie Norwood N, FELT PAD CUTTER [address] [place] [address] documented as of this encounter Procedures Procedure Name Priority Date/Time Associated Diagnosis Comments CBC (OUTSIDE LAB) Routine 07/01/2020 COMPREHENSIVE METABOLIC PANEL Routine 07/01/2020 THYROID STIM HORMONE TSH Routine 07/01/2020 MAGNESIUM Routine 07/01/2020 documented in this encounter Results * MAGNESIUM (07/01/2020) MAGNESIUM 1.9 07/01/2020 us Doc [facility] Final Result * THYROID STIM HORMONE, TSH (07/01/2020) Pathologist [facility] TSH 2.820 07/01/2020 us Doc [facility] Final Result * COMPREHENSIVE METABOLIC PANEL (07/01/2020) Pathologist [facility] SODIUM S/P/B 137 POTASSIUM S/P/B 4.1 CO2 26 CHLORIDE S/P/B 106 GLUCOSE 90 mg/dL CALCIUM S/P/B 8.8 BUN 17 CREATININE S/P/B 0.60 0.5 - 1.0 EGFR NON-AFR. AMER. >60 <=90 ALKALINE PHOSPHATASE S/P/B 71 ALT 22 AST 25 BILIRUBIN TOTAL S/P/B 0.3 ALBUMIN S/P/B 3.7 3.5 - 5.0 TOTAL PROTEIN S/P/B 6.0 07/01/2020 us Doc [facility] Edited Resul t - Final * CBC (OUTSIDE LAB) (07/01/2020) WBC 5.5 HGB 11.0 HCT 33.1 PLT 255 07/01/2020 us Doc [facility]-OUTSIDE/ABSTRACTED Final Result documented in this encounter Visit Diagnoses Not on filedocumented in this encounter Additional Health Concerns Assessment Noted Time PHQ-9 Depression Total Score: 0 10/23/20 3:13 PM CEMENT BLOCK MAKER documented as of this encounter Care Teams Rotary Operator Relationship Specialty Start Date End Date Iona Garner APNP [address] [place] [id number] PCP - General NURSE PRACTITIONER 10/23/19 Kalyan Venegas MD [address] [facility] [address] [place] [id number] [place] Manager Construction CARDIOVASCULAR DISEASE 12/09/19 documented as of this encounter
--- OUTSIDE RECORDS SUMMARY | 2025-07-30 18:58 | XMS_ITS | Clinical Summary ---
Author Organization [facility] Address [address] [place] [address] Care Team Providers Care Drill Grinder Name Role Phone Iona Garner Primary Care Provider [phone] Kalyan Venegas MD Unavailable [phone] Allergies Active Allergy Reactions Criticality Noted Date Comments Nsaids GI Upset 2019 PT HAS HAD DYSPLASIA WELL GASTRIC BYPASS Oxcarbazepine Unknown 10/09/2011 UNABLE TO URINATE Medications * This document contains information received from the source organization and may not represent a complete record from that organization. cyanocobalamin 1000 MCG/ML injection INJECT 1ML INTO MUSCLE ONCE MONTHLY 9 Active cholecalciferol (D-5000) 5000 units Tab Take 5,000 Units by mouth daily. 7 Active calcium carbonate-vitami n D 600-400 MG-UNIT Tab Take 1 tablet by mouth daily. 7 Active cyclobenzaprine 10 MG tablet Take 10 mg by mouth. Active hydrOXYzine 25 MG capsule Take 25 mg by mouth 3 (three) times daily. 1 9 Active gabapentin 600 MG tablet Take 600 mg by mouth 3 (three) times daily. 9 Active BD INSULIN SYRINGE U/F 31G X 5/16 1 ML Misc INJECT 2 ALLERGY SHOTS EVERY 2 DAYS DIRECTED 3 9 Active B-D TB SYRINGE 1CC/25GX5/8 25G X 5/8 1 ML Misc USE TO INJECT B-12 INJECTIONS DIRECTED 3 9 Active omeprazole 40 MG capsule TAKE 1 CAPSULE BY MOUTH TWICE A DAY 7 Active divalproex ER 500 MG 24 hr tablet TK 2 TS PO QHS 7 Active Divalproex Sodium (DEPAKOTE OR)Indications:t brent in addition with other rx for a total of 1200mg/day Take 200 mg by mouth daily. Indications: take in addition with other rx for a total of 1200mg/day Active isosorbide mononitrate ER 30 MG 24 hr tablet Take 1 tablet (30 mg total) by mouth daily. 90 tablet 1 0 Active metoprolol tartrate 25 MG tablet Take 1 tablet (25 mg total) by mouth 2 (two) times daily. 180 tablet 1 0 Active nitroglycerin 0.[address] 1 tablet (0.4 mg total) under the tongue every 5 (five) minutes as needed for Chest Pain. Maximum of 3 doses. 25 tablet 1 0 Active Active Problems Problem Noted Date Diagnosed Date Therapeutic opioid induced constipation 10/26/20 19 Interstitial cystitis 10/23/2019 History of DVT (deep vein thrombosis) 10/23/2019 Lumbar radiculopathy 2019 Linad's esophagus with low grade dysplasia 08/2018 Overview (09/28/2019): Overview: Added automatically from request for surgery [id number] B12 deficiency 08/30/2017 Overview (09/28/2019): Last Assessment & Plan: Patient will begin oral B12 1000 mcg tablet once daily. Repeat B12 level scheduled with routine lab in November. High triglycerides 08/30/2017 Overview (09/28/2019): Last Assessment & Plan: Lipid panel reviewed in detail. Encouraged increased aerobic activity. Weight loss. Decrease caloric intake. Heart healthy diet. In addition, patient will start [place] 3 fish oil once daily. Will follow up with primary care provider for routine blood work. Hypovitaminosis D 08/30/2017 Overview (09/28/2019): Last Assessment & Plan: Patient will take 5000 units of vitamin-D daily for the next 90 days. She will take calcium with vitamin-D such as Oscal or Caltrate [id number] once daily for life. We will recheck her vitamin D levels in 16 weeks. Chronic bilateral low back pain without sciatica 08/22/2017 Type 2 diabetes mellitus wit hout complication, without long-term current use of insulin ([facility]) 08/22/2017 Linda's esophagus with high grade dysplasia Obstructive sleep apnea 03/05/2017 Pulmonary hypertension ([facility]) 017 Restless legs syndrome (RLS) 03/05/2017 Bipolar II disorder ([facility]) 03/20/2014 Overview (09/28/2019): Overview: Bipolar disorder Insomnia 03/20/2014 Overview (09/28/2019): Overview: Insomnia Palpitations 03/20/2014 Overview (09/28/2019): Overview: Palpitations Herpes simplex type 2 infection 05/14/2011 Overview (09/28/2019): Overview: HSV-2 infection Resolved Problems Problem Noted Date Diagnosed Date Resolved Date Non morbid obesity due to excess calories 03/05/2017 10/26/2019 Immunizations Immunization Administration Dates Next Due Fluzone High Dose - >Age 65 (Prefilled Syringe) 09/17/2019 Influenza (Generic) 08/02/2015,08/15/2009 Influenza Adult (Generic) 08/04/2019,08/22/2017 MODERNA COVID-19 (12+) MRNA, LNP-S, PF, 100 MCG/ 0.5 ML DOSE 01/12/2021,12/16/2020 Pneumococcal (Generic) 05/12/2017,08/15/2009 Pneumococcal (Prevnar 13) 08/30/2017 Shingrix 08/04/2019,05/04/2019,04/11/2019 Tdap (Generic) 11/17/2016 Family History Medical History Relation Comments Alzheimers Father Melanoma Father lymphoma Father Cancer Maternal Aunt colon Cancer Maternal Grandmother stomach Stroke Mother 77 Cancer Paternal Uncle Arthritis Sister Relation Status Comments Father Maternal Aunt Maternal Grandmother Mother Paternal Uncle Sister Social History Tobacco Use Types Packs/Day Years [...] Job Start Date Job End Date [employer] Not on file Not on file Not on file Last Filed Vital Signs Vital Sign Reading Time Taken Comments Blood Pressure 151/81 02/10/2020 12:03 PM CDT Pulse 97 02/10/2020 12:03 PM CDT Temperature 37.1 C (98.7 F) 02/10/2020 12:03 PM CDT Respiratory Rate 18 02/10/2020 12:03 PM CDT Oxygen Saturation 100% 02/10/2020 12:03 PM CDT Inhaled Oxygen Concentration - - Weight 73.5 kg (162 lb) 02/10/2020 12:03 PM CDT Height 172.7 cm (5' 8) 12/24/2019 11:02 AM SOUND TECHNICIAN SUPERVISOR Body Mass Index 24.63 12/24/2019 11:02 AM SOUND TECHNICIAN SUPERVISOR Plan of Treatment Upcoming Encounters Date Type Department Care Team (Late st Contact Info) Description 10/26/2025 9:40 AM SOUND TECHNICIAN SUPERVISOR Office Visit [facility] [place] [address] [place] [address] Kalie Norwood, ADILSON [address] [place] [address] Health Maintenance Due Date Last Done Comments Colorectal Cancer Screening Colonoscopy (10 Years) 1950 EGD-Linda's Surveillance 1950 Kidney Health Evaluation 1950 Annual Medicare Wellness Visit 02/08/2017 Pneumococcal Vaccine: 50+ Years (2 of 2 - PPSV23) 10/25/2017 08/30/2017 Lipid Panel 11/20/2020 11/20/2019 Mammogram Screening 11/12/2021 11/12/2019, 8 Diabetes: Retinopathy Eye Exam 07/18/2022 07/18/2020, 12/28/2019 PHQ-2 (Physician [place]) 11/04/2024 Hemoglobin A1C 01/19/2025 07/22/2024, 11/2 05/2023, 11/06/2022, Additional history exists COVID-19 Vaccine ( - season) 2025 01/12/2021, 12/16/2020 DTaP, Tdap and Td Vaccines (2 - Td or Tdap) 11/17/2026 11/17/2016 RSV Immunization or 60+ Years (1 - 1-dose 75+ series) 02/08/2027 Zoster Vaccines Completed 08/04/2019, 07/0 11/2018, 04/11/2019 Dexa Scan (General) Completed 11/27/2019 Hepatitis C Completed 12/27/2020 Meningococcal B Vaccine Aged Out No l onger eligible based on patient's age to complete this topic Meningococcal Vaccine Aged Out No elisabeth shanika eligible based on patient's age to complete this topic RSV Immunizations Under 20 Months Aged Out No longer eligible based on patient's age to complete this topic Procedures Procedure Name Priority Date/Time Associated Diagnosis Comments DILATED EYE EXAM (SCAN) Routine 07/18/2020 BONE DENSITY GENERIC (SCAN ORDER) Routine 11/27/2019 9:30 AM SOUND TECHNICIAN SUPERVISOR HEMOGLOBIN, GLYCOSYLATED Routine 11/20/2019 9:52 AM SOUND TECHNICIAN SUPERVISOR Type 2 diabetes mellitus without complication, without long-term current use of insulin LIPID PANEL Routine 11/20/2019 9:23 AM SOUND TECHNICIAN SUPERVISOR High triglycerides MAMMOGRAM GENERIC (SCAN ORDER) Routine 11/12/2019 8:39 AM SOUND TECHNICIAN SUPERVISOR from Last 3 Months or Most Recently Relevant to Health Maintenance Results * DIABETIC RETINOPATHY EXAM (07/18/2020) us Documents Scanned SCANNING Final Result [facility] * BONE DENSITY (11/27/2019 9:30 AM SOUND TECHNICIAN SUPERVISOR) Anatomical Region Laterality Modality Other us Documents Scanned SCANNING Edited Result - Final * HEMOGLOBIN, GLYCOSYLATED (11/20/2019 9:52 AM SOUND TECHNICIAN SUPERVISOR) HGB A1C 5.0 <5.7 % of total Hgb [facility] Comment: For the purpose of screening for the presence of diabetes: <5.7% Consistent with the absence of diabetes 5.7-6.4% Consistent with increased risk for diabetes (prediabetes) > or =6.5% Consistent with diabetes This assay result is consistent with a decreased risk of diabetes. Currently, no consensus exists regarding use of hemoglobin A1c for diagnosis of diabetes in children. According to [place] Diabetes Association (ADA) guidelines, hemoglobin A1c <7.0% represents optimal control in non- diabetic patients. Different metrics may apply to specific patient populations. Standards of Medical Care in Diabetes(ADA). 11/20/2019 9:52 AM SOUND TECHNICIAN SUPERVISOR 11/21/2019 6:27 AM SOUND TECHNICIAN SUPERVISOR Narrative Resulting Agency Comment Performing Organization Information: Site ID: [place] Name: [facility] Address: [address] [place] [address] [place] [address] Director: Edson Servin D.O., MPH Iona [facility] Final Resul t [email or web address] * LIPID PANEL (11/20/2019 9:23 AM SOUND TECHNICIAN SUPERVISOR) CHOLESTEROL 162 <200 mg/dL [email or web address] HDL 73 >50 mg/dL [email or web address] TRIGLYCERIDES 59 <150 mg/dL [email or web address] LDL (CALCULATED) 75 mg/dL (calc) [email or web address] Comment: Reference range: <100 Desirable range <100 mg/dL for primary prevention; <70 mg/dL for patients with CHD or diabetic patients with > or = 2 CHD risk factors. LDL-C is now calculated using the Ana Maria calculation, which is a validated novel method providing better accuracy than the Friedewald equation in the estimation of LDL-C. Sj WOOD et al. TAZ. 2013;310(19): 6169-9192 (http://education.[employer]/faq/QLD261) CHOL/HDL RATIO 2.2 <5.0 (calc) [facility] NON HDL CHOLESTEROL 89 <130 mg/dL (calc) [facility] Comment: For patients with diabetes plus 1 major ASCVD risk factor, treating to a non-HDL-C goal of <100 mg/dL (LDL-C of <70 mg/dL) is considered a therapeutic option. 11/20/2019 9:23 AM SOUND TECHNICIAN SUPERVISOR 11/21/2019 6:28 AM SOUND TECHNICIAN SUPERVISOR Narrative Resulting Agency Comment Performing Organization Information: Site ID: ME Name: [facility] Address: [address] [address] Director: Edson Servin D.O., MPH us Iona [facility] Final Resul t [email or web address] * MAMMOGRAM (11/12/2019 8:39 AM SOUND TECHNICIAN SUPERVISOR) Anatomical Region Laterality Modality Other us Documents Scanned SCANNING Edited Result - Final from Last 3 Months or Most Recently Relevant to Health Maintenance Insurance AETNA AETNA Care Teams Drill Grinder Relationship Specialty Start Date End Date Iona Garner APNP [address] [place] [id number] PCP - General NURSE PRACTITIONER 10/23/19 Kalyan Venegas MD [address] [facility] [address] [place] [address] [place] [employer] Business Analyst CARDIOVASCULAR DISEASE 12/09/19
[2025-07-30 19:22] VITALS: BP 111/50; PULSE 79; RESP 18; TEMP 37.1; O2SAT 100
[2025-07-30 22:00] VITALS: BP 108/50; PULSE 67; RESP 16; O2SAT 98
[2025-07-30 23:00] VITALS: BP 116/49; PULSE 74; RESP 16; O2SAT 98
[2025-07-30 23:01] VITALS: BP 116/49; O2SAT 97
[2025-07-30 23:06] LABS: Hematocrit 27.1 % (37.0-47.0); Hemoglobin 8.4 g/dL (12.0-15.0); Immature Granulocyte Percent A 0.1 % (0-0.5); Lymphocytes Absolute Auto 3.55 K/mm3 (0.9-3.2); Mean Corpuscular HGB Conc 31.0 g/dl (32-36); Mean Corpuscular Hemoglobin 26.4 pg (26-34); Mean Corpuscular Volume 85.2 fl (80-100); Nucleated Red Blood Cells Absolute Auto 0.000 K/mm3 (0.0-0.012); Nucleated Red Blood Cells Perc 0.0 % (0.0-0.2); Platelet Count Result 236 k/mm3 (150-375); Red Blood Count 3.18 M/mm3 (4.2-5.4); White Blood Count 8.5 K/mm3 (4.5-10.0)
--- NOTE | 2025-07-30 23:15 | PC.NURSE ---
This RN received report from danilo BUCK at 0744.
--- NOTE | 2025-07-30 23:18 | PC.NURSE ---
Report to Lor BUCK
[2025-07-30 23:37] LABS: Alanine Aminotransferase 10 U/L (6-35); Albumin Level 3.6 g/dL (3.5-5.1); Alkaline Phosphatase 81 U/L (38-126); Anion Gap 5 mmol/L (4-12); Aspartate Amino Transferase 22 U/L (14-36); Bilirubin,Total 0.3 mg/dL (0.2-1.3); Blood Urea Nitrogen 18 mg/dL (7-17); Calcium 8.3 mg/dL (8.4-10.2); Carbon Dioxide 26 mmol/L (22-30); Chloride 104 mmol/L (98-107); Estimated CRCL calculation 51 ml/min; Estimated Glomerular Filt Rate > 60; Glucose 45 mg/dL (65-110); Lipase 56 U/L (23-300); Magnesium 1.7 mg/dL (1.6-2.3); Potassium 4.1 mmol/L (3.4-5.0); Sodium 135 mmol/L (137-145); Total Protein 6.5 g/dL (6.3-8.2)
[2025-07-31 00:25] LABS: Add Urine Microscopic? YES; Appearance Urine Clear (Clear); Glucose Urine UA Negative (Negative); Leukocyte Esterase Ur Trace LEU/UL (Negative); Need Manual Microscopic Reviewed; Nitrate Urine Negative (Negative); Specific Grav Ur 1.010 (1.001-1.035)
[2025-07-31] MEDS: MORPHINE SULFATE (*CRX) 4 MG/ML INJ 2 MG IV PUSH (00:35)
[2025-07-31] MEDS: ONDANSETRON INJ 4 MG/2 ML VIAL IV PUSH (00:35)
--- NOTE | 2025-07-31 02:06 | ED.BACK ---
HPI - Back Pain/Injury General Chief Complaint: Back Pain/Injury Stated Complaint: back pain/groin pain Time Seen by Provider: 07/30/25 21:51 History of Present Illness HPI Narrative: Patient is a 75-year-old female who presents emergency department this evening complaining of left lower quadrant/groin/hip starting this evening around 6:00 p.m.. Patient denies any falls or trauma. States that she has had a left hip replacement approximately 10 months ago. Denies any additional symptoms or concerns. Related Data Home Medications ?Medication ?Instructions ?Recorded ?Confirmed ?Last Taken ?Type gabapentin 300 mg capsule 300 mg PO TID 05/29/21 04/12/23 04/10/23 History diclofenac sodium 1 % topical gel 4 g topical QID PRN Pain 04/12/23 04/12/23 Unknown History escitalopram oxalate 10 mg tablet 10 mg PO DAILY 04/12/23 04/12/23 04/10/23 History furosemide 20 mg tablet 20 mg PO BID PRN swelling 04/12/23 04/12/23 Unknown History hydrocodone 10 mg-acetaminophen 1 tablet PO Q6H PRN Pain 04/12/23 04/12/23 04/11/23 11:00 History 325 mg tablet hydroxyzine pamoate 25 mg capsule 25 mg PO DAILY PRN Anxiety 04/12/23 04/12/23 Unknown History omeprazole 20 mg capsule,delayed 20 mg PO DAILY PRN Indigestion 04/12/23 04/12/23 Unknown History release Allergies Allergy/AdvReac Type Severity Reaction Status Date / Time latex Allergy Intermediate Hives Verified 07/30/25 19:29 NSAIDS (Non-Steroidal AdvReac Severe Other Verified 07/30/25 19:29 Anti-Inflamma Review of Systems Review of Systems: All systems are reviewed and are negative unless stated otherwise in the HPI. [facility] Past Medical History Medical History Degenerative disc disease Osteoarthritis Rheumatoid arthritis Gastroesophageal reflux disease Supraventricular tachycardia Status post ablation in 2008. Polycystic ovarian syndrome Deep vein thrombosis of left lower extremity Chronic back pain Depression with anxiety Barretts esophagus Bipolar disorder Coronary artery disease Patient stated that she had minimal blockages and was treated medically. She sees Dr. Venegas. Cardiac catheterization in 2012 done by zachariah Da Silva showed no coronary disease and normal LV function. Spinal stenosis Surgical History Surgical History History of tonsillectomy History of appendectomy History of cholecystectomy History of gastric bypass History of oophorectomy History of tubal ligation History of cardiac radiofrequency ablation For supraventricular tachycardia. Status post insertion of spinal cord stimulator History of cardiac catheterization She was told that she has minimal blockages. History of esophageal dilatation Family History Family History Mother Cerebrovascular accident Atrial fibrillation Father Lymphoma Skin cancer (melanoma) AD (Alzheimer's disease) Sibling No problems noted. Social History Social History Social History: Surrogate medical decision maker: Darnell Chu, spouse. Code status: Full code. Smoking status: Never smoker Alcohol intake: never Substance use: never Lack of Transportation: No Lack of Food: Never True Current Housing: I Have Housing Concerned About Future Housing: No Difficulty Paying Gas/Electric Bills: No Difficulty Paying for Meds: No Currently Unemployed: No Education: Bachelor's Degree Difficulty w/ Childcare or Family Care: No Additional living arrangements comments: Lives in [place]. Has 3 children. 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 Spiritual care concerns: No Exam Narrative: General: Alert, awake, afebrile, in no acute distress. HEENT: PERRL, no rhinorrhea, no post nasal drip, oropharynx clear. Neck: Trachea midline, no JVD, no lymphadenopathy. Cardiovascular: Regular rate and rhythm, no murmurs, rubs or gallops, no peripheral edema. Respiratory: Clear to auscultation bilaterally, no tachypnea, no wheezing, no rhonchi, no rubs, no respiratory distress. Abdomen: Soft, nontender, nondistended, no rebound, no guarding, no peritoneal signs. Musculoskeletal: No joint swelling or deformity, normal muscle tone, intact bilateral hip flexors and knee extensors. Skin: No rashes or petechia, no signs of infection. Psychiatric: Alert and oriented, normal behavior and judgment for situation. Neurological: Alert and oriented to person, place, and time. Follows all commands. No focal deficits, speech is clear and fluent. Course Vital Signs Vital signs: Vital Signs Temperature 98.7 F 07/30/25 19:22 Pulse Rate 79 07/30/25 19:22 Respiratory Rate 18 07/30/25 19:22 Blood Pressure 111/50 L 07/30/25 19:22 Pulse Oximetry 100 07/30/25 19:22 Oxygen Delivery Room Air 07/30/25 19:22 Temperature 98.7 F 07/30/25 19:22 Pulse Rate 74 07/30/25 23:00 Respiratory Rate 16 07/30/25 23:00 Blood Pressure 116/49 L 07/30/25 23:00 Pulse Oximetry 98 07/30/25 23:00 Oxygen Delivery Room Air 07/30/25 19:22 MDM - Back Pain/Injury MDM Narrative Medical decision making narrative: The patient was evaluated by myself in the emergency department. History is obtained from patient who is an independent historian and physical exam was performed. External medical records were reviewed at this time. IV was established and pertinent tests were ordered. Patient was administered 2 mg IV morphine for pain and 4 mg IV Zofran. Laboratory results obtained revealing a hemoglobin of 8.4 and a glucose of 45 otherwise unremarkable. Patient denies any history of diabetes, states that she has not had anything to eat since this morning. Urinalysis revealed 3-5 rbc's otherwise unremarkable. Imaging studies obtained included left hip x-rays with AP pelvis which was independently interpreted by me revealing no acute process, which is pending final radiology interpretation. CT abdomen pelvis with IV contrast was also obtained at this time and bloody interpreted by me revealing no acute process, moderate stool burden primarily in the right colon. Differential diagnosis considerations include fracture, dislocation, diverticulitis, constipation, gastroenteritis. Comorbidities impacting this visit include none. I have evaluated and discussed social determinants of health with the patient that could potentially impact subsequent diagnosis and treatment plans. On repeat assessment of the patient, reevaluation revealed that the patient is doing well and is in no acute distress. Patient symptoms have improved since she arrived to our emergency department. Repeat vital signs were all reviewed and noted to be stable. Differential diagnosis and treatment plan were discussed with the patient at bedside. Patient agrees with discussion and after shared medical decision making agrees with discharge. All questions were answered to the patient's satisfaction. Patient will follow up with her PCP in 3-5 days. Instructed to use [id number]-[id number]-[id number] so left softeners and laxatives to help pass her bowel. Patient was provided with strict return precautions and instructed to return to the emergency department if any new or worsening symptoms develop. The patient was discharged in stable condition. Lab Data 07/30/25 22:49 07/30/25 22:49 Labs: Lab Results 07/30/25 07/31/25 Range/Units 22:49 00:03 WBC 8.5 (4.5-10.0) K/mm3 RBC 3.18 L (4.2-5.4) M/mm3 Hgb 8.4 L D (12.0-15.0) g/dL Hct 27.1 L (37.0-47.0) % MCV 85.2 (80-100) fl MCH 26.4 (26-34) pg MCHC 31.0 L (32-36) g/dl RDW 17.4 H (11.5-14.5) % Plt Count 236 (150-375) k/mm3 MPV 11.4 H (7.4-10.4) fl Immature Gran % (Auto) 0.1 (0-0.5) % Neut % (Auto) 42.7 L (45.5-73.1) % Lymph % (Auto) 41.6 (18.3-44.2) % Martin % (Auto) 10.1 H (2.6-8.5) % Eos % (Auto) 4.6 H (0-4.4) % Baso % (Auto) 0.9 (0.2-1.2) % Lymph # (Auto) 3.55 H (0.9-3.2) K/mm3 Martin # (Auto) 0.9 H (0.1-0.6) K/mm3 Eos # (Auto) 0.4 H (0-0.3) K/mm3 Baso # (Auto) 0.1 (0.0-0.1) K/mm3 Abs Immat Gran (auto) 0.01 (0.00-0.031) K/mm3 Absolute Neuts (auto) 3.6 (1.3-6.7) K/mm3 Absolute Nucleated RBC 0.000 (0.0-0.012) K/mm3 Nucleated RBC % 0.0 (0.0-0.2) % Sodium 135 L (137-145) mmol/L Potassium 4.1 (3.4-5.0) mmol/L Chloride 104 (98-107) mmol/L Carbon Dioxide 26 (22-30) mmol/L Anion Gap 5 (4-12) mmol/L BUN 18 H D (7-17) mg/dL Creatinine 0.87 (0.7-1.0) mg/dL Estim Creat Clear Calc 51 ml/min Estimated GFR > 60 (59 - ) Glucose 45 L* (65-110) mg/dL Calcium 8.3 L (8.4-10.2) mg/dL Magnesium 1.7 (1.6-2.3) mg/dL Total Bilirubin 0.3 (0.2-1.3) mg/dL AST 22 (14-36) U/L ALT 10 (6-35) U/L Alkaline Phosphatase 81 (38-126) U/L Total Protein 6.5 (6.3-8.2) g/dL Albumin 3.6 (3.5-5.1) g/dL Lipase 56 (23-300) U/L Urine Color Yellow (Yellow) Urine Appearance Clear (Clear) Urine pH 5.0 (5.0-9.0) Ur Specific [place] 1.010 (1.001-1.035) Urine Protein Negative (Negative) mg/dL Urine Glucose (UA) Negative (Negative) mg/dL Urine Ketones Negative (Negative) mg/dL Ur Blood (Man) Negative (Negative) Urine Nitrate Negative (Negative) Urine Bilirubin Negative (Negative) Urine Urobilinogen 0.2 (<2.0) mg/dL Add Ur Microanalysis Reviewed Leukocyte Esterase Rfl Trace H (Negative) SURYA/UL Urine RBC 3-5 H (0-2) /hpf Urine WBC 0-5 (0-3) /hpf Ur Squamous Epith Cells Occasional (Few) /hpf Calcium Oxalate Crystal Present (None) /hpf Urine Bacteria None seen /hpf Urine Casts 11-20 Hyaline Casts Present (None) /lpf Urine Mucus Present /lpf Discharge Plan Discharge Clinical Impression: Abdominal pain, acute, left lower quadrant, Constipation Patient Disposition: Home Condition: Improved Instructions: Antibiotic Form, Constipation (DC), Abdominal Pain (ED) Additional Instructions: Please follow-up with your family doctor within the next 3-5 days. Return to the emergency department if any new or worsening symptoms develop. Patient Language: Czech Prescriptions: No Action gabapentin 300 mg capsule 300 mg PO TID hydrocodone-acetaminophen 10-325 mg tablet 1 tablet PO Q6H PRN (Reason: Pain) furosemide 20 mg tablet 20 mg PO BID PRN (Reason: swelling) hydroxyzine pamoate 25 mg capsule 25 mg PO DAILY PRN (Reason: Anxiety) escitalopram oxalate 10 mg tablet 10 mg PO DAILY diclofenac sodium 1 % gel 4 g TOPICAL QID PRN (Reason: Pain) Rx Instructions: apply to bilateral knees omeprazole 20 mg capsule,delayed release(DR/EC) 20 mg PO DAILY PRN (Reason: Indigestion) clindamycin HCl 300 mg capsule 300 mg PO Q6H 10 Days Qty: 40 0RF hydrocodone-acetaminophen 5-325 mg tablet 1 tablet PO Q12H PRN (Reason: pain) Qty: 10 0RF methylprednisolone [Medrol ([place])] 4 mg tablets,dose pack 4 mg PO DAILY Qty: 21 0RF cephalexin 500 mg capsule 500 mg PO Q8H 7 Days Qty: 21 0RF Follow-up/Referrals: Jane Holman, PLANT WRAPPER [Primary Care Provider, Internal Medicine] - 3 Days Time of Disposition: 02:06
[2025-07-31 02:51] VITALS: BP 116/50; PULSE 74; RESP 14; O2SAT 98
== END 2025-07-31 02:42 | disposition home or self-care (01) ==
PROVIDERS: Emergency Provider Emergency Medicine; PCP Nurse Practitioner
DX: K59.00 Constipation, unspecified (principal); I25.10 Atherosclerotic heart disease of native coronary artery without angina pectoris; E28.2 Polycystic ovarian syndrome; M19.90 Unspecified osteoarthritis, unspecified site; M06.9 Rheumatoid arthritis, unspecified; K21.9 Gastro-esophageal reflux disease without esophagitis; K22.70 Barrett's esophagus without dysplasia; F41.8 Other specified anxiety disorders; F31.9 Bipolar disorder, unspecified; Z96.82 Presence of neurostimulator; Z96.642 Presence of left artificial hip joint; Z86.718 Personal history of other venous thrombosis and embolism; Z90.49 Acquired absence of other specified parts of digestive tract; Z98.84 Bariatric surgery status; Z79.899 Other long term (current) drug therapy
CPT/HCPCS: 36415; 73502; 74177; 80053; 81001; 82948; 83690; 83735; 85025; 96374; 96375; 99284; J2270; J2405; Q9967

== ENCOUNTER 2025-08-30 09:05 | Outpatient (CLI) | payer OTHER, SELFPAY ==
--- OUTSIDE RECORDS SUMMARY | 2025-08-30 09:48 | XMS_ITS | Encounter Summary ---
Author Organization [facility] Healthcare Address [address] [place] [address] Care Team Providers Care Pressurised Container Filler Name Role Phone Guerita Landis Primary Care Provider [phone] Jan Littlejohn MD Unavailable [phone] Guerita Landis Primary Care Provider [phone] Miscellaneous, Not In File Primary Care Provider Unavailable Kiley Pemberton NP Primary Care Provider [phone] Reza Rose MD Unavailable [phone] Sunny Bazzi NP Unavailable [phone] Leni Lopez MA Unavailable Darnell Truong MD Unavailable [phone] Encounter Details Date Type Department Care Team (Late st Contact Info) Description 03/22/2020 Telephone [facility] [address] [place] [address] Kalie Triplett, BILLY Social History Tobacco Use Types Packs/Day Years Used Date Smoking Tobacco: Never Smokeless Tobacco: Never Alcohol Use Standard Drinks/Week Comments No 0 (1 standard drink = 0.6 oz pur e alcohol) PHQ-2 Answer Date Recorded PHQ-2 Score 0 06/26/2019 Comments No Sex and Gender Information Value Date Recorded Sex Assigned at Not on file Legal Sex Female 4:48 PM SPINNING MULE TENDER Gender Identity Female 10/13/2024 2:22 PM SPINNING MULE TENDER Sexual Orientation Not on file Occupation Industry [...] COVID: Suspected 09/28/2022 09/28/2022 09/28/2022 1:10 PM SPINNING MULE TENDER MRSA Comment:Dx. by Dermatology at [facility] 09/2023. 02/19/2024 02/19/2024 08/14/2024 9: 32 AM CDT documented as of this encounter Care Teams Pressurised Container Filler Relationship Specialty Start Date End Date Guerita Landis PA [address] [place] [address] PCP - General 01/22/19 06/06/20 Guerita Landis PA [address] [place] [address] PCP - General 06/07/20 11/27/21 Miscellaneous, Not In File PCP - General 11/28/21 10/09/22 Kiley Pemberton NP PCP - General Family Medicine 10/10/22 Jan Littlejohn MD [address] [facility] [place] [address] 01/22/19 Reza Rose MD [address] [place] [address] Referring Physician Physical Medicine and Rehabilitation 01/23/24 Sunny Bazzi NP [address] [facility] [address] [place] [address] Nurse Practitioner Orthopedic Surgery 02/27/24 Leni Lopez, PEDRO [address] [place] [address] [address] [place] [address] ACO Care Machining Department Supervisor 03/27/24 03/30/24 Darnell Truong MD [address] [place] [address] [address] [place] [address] Surgeon Orthopedic Surgery 08/19/24 documented as of this encounter
--- OUTSIDE RECORDS SUMMARY | 2025-08-30 09:48 | XMS_ITS | Encounter Summary ---
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 Not on file Not on file documented as of this encounter Plan of Treatment Upcoming Encounters Date Type Department Care Team (Late st Contact Info) Description 10/26/2025 9:40 AM SUPERVISORY HISTORIAN Office Visit [facility] Medical Group Multispecialty Care - [address] [place] [address] Kalie Norwood N, PATIENT SERVICE SPECIALIST [address] [place] [address] documented as of this encounter Procedures Procedure Name Priority Date/Time Associated Diagnosis Comments CBC (OUTSIDE LAB) Routine 07/01/2020 COMPREHENSIVE METABOLIC PANEL Routine 07/01/2020 THYROID STIM HORMONE TSH Routine 07/01/2020 MAGNESIUM Routine 07/01/2020 documented in this encounter Results * MAGNESIUM (07/01/2020) MAGNESIUM 1.9 07/01/2020 us Doc [facility] Final Result * THYROID STIM HORMONE, TSH (07/01/2020) Pathologist [facility] TSH 2.820 07/01/2020 us Doc [facility] Final Result * COMPREHENSIVE METABOLIC PANEL (07/01/2020) Pathologist [facility] SODIUM S/P/B 137 POTASSIUM S/P/B 4.1 CO2 [...] Depression Total Score: 0 10/23/20 3:13 PM SUPERVISORY HISTORIAN documented as of this encounter Care Teams Pigment Presser Relationship Specialty Start Date End Date Iona Garner APNP [address] [place] [address] PCP - General NURSE PRACTITIONER 10/23/19 Kalyan Venegas MD [address] [facility] [address] [place] [id number] [place] [employer] Administrative Assistant CARDIOVASCULAR DISEASE 12/09/19 documented as of this encounter
--- OUTSIDE RECORDS SUMMARY | 2025-08-30 09:48 | XMS_ITS | Clinical Summary ---
Author Organization [facility] Address [address] [place] [address] Care Team Providers Care Material Attendant Name Role Phone Iona Garner Primary Care Provider Kalyan Venegas MD Unavailable [phone] Allergies Active Allergy Reactions Criticality Noted Date [...] (deep vein thrombosis) 10/23/2019 Lumbar radiculopathy 2019 Linda's esophagus with low grade dysplasia 08/2018 Overview (09/28/2019): Overview: Added automatically from request for surgery [id number] B12 deficiency 08/30/2017 Overview (09/28/2019): Last Assessment & Plan: Patient will begin oral B12 1000 mcg tablet once daily. Repeat B12 level scheduled with routine lab in November. High triglycerides 08/30/2017 Overview (09/28/2019): Last Assessment & Plan: Lipid panel reviewed in detail. Encouraged increased aerobic activity. Weight loss. Decrease caloric intake. Heart healthy diet. In addition, patient will start Granger 3 fish oil once daily. Will follow up with primary care provider for routine blood work. Hypovitaminosis D 08/30/2017 Overview (09/28/2019): Last Assessment & Plan: Patient will take 5000 units of vitamin-D daily for the next 90 days. She will take calcium with vitamin-D such as Oscal or Caltrate [id number] once daily for life. We will recheck her vitamin D levels in 16 weeks. 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 [facility] [address] [place] [address] Kalie Norwood, ADILSON [address] [facility] [address] [place] [address] Health Maintenance Due Date Last Done Comments Colorectal Cancer Screening Colonoscopy (10 Years) 1950 EGD-Linda's Surveillance 1950 Kidney Health Evaluation 1950 Annual Medicare Wellness Visit 02/08/2017 Pneumococcal Vaccine: 50+ Years (2 of 2 - PPSV23, PCV20, or PCV21) 10/25/2017 08/30/2017 Lipid Panel 11/20/2020 11/20/2019 Mammogram Screening 11/12/2021 11/12/2019, 8 Diabetes: Retinopathy Eye Exam 07/18/2022 07/18/2020, 12/28/2019 PHQ-2 (Physician Ak Chin) 11/04/2024 Hemoglobin A1C 01/19/2025 07/22/2024, 09/05, 11/06/2022, Additional history exists COVID-19 Vaccine ( season) 2025 01/12/2021, 12/16/2020 Influenza Adult (#1) 2025 08/03/2023, 09/17/2019, 08/04/2019, Additional history exists DTaP, Tdap and Td Vaccines (2 - Td or Tdap) 11/17/2026 11/17/2016 RSV Immunization or 60+ Years (1 - 1-dose 75+ series) 02/08/2027 Hepatitis A Vaccines Aged Out 04/11/2007 No long er eligible based on patient's age to complete this topic Zoster Vaccines Completed 08/04/2019, 0711/2018, 04/11/2019 Dexa Scan (General) Completed 11/27/2019 Hepatitis [...] GENERIC (SCAN ORDER) Routine 11/27/2019 9:30 AM EMAIL OPERATIONS MANAGER HEMOGLOBIN, GLYCOSYLATED Routine 11/20/2019 9:52 AM EMAIL OPERATIONS MANAGER Type 2 diabetes mellitus without complication, without long-term current use of insulin LIPID PANEL Routine 11/20/2019 9:23 AM EMAIL OPERATIONS MANAGER High triglycerides MAMMOGRAM GENERIC (SCAN ORDER) Routine 11/12/2019 8:39 AM EMAIL OPERATIONS MANAGER from Last 3 Months or Most Recently Relevant to Health Maintenance Results * DIABETIC RETINOPATHY EXAM (07/18/2020) us Documents Scanned SCANNING Final Result Performing Organization Address City/[facility]/ZIP Co de Phone Number [facility] * BONE DENSITY (11/27/2019 9:30 AM EMAIL OPERATIONS MANAGER) Anatomical Region Laterality Modality Other us Documents Scanned SCANNING Edited Result - Final * HEMOGLOBIN, GLYCOSYLATED (11/20/2019 9:52 AM EMAIL OPERATIONS MANAGER) HGB A1C 5.0 <5.7 % of total [...] diagnosis of diabetes in children. According to [place] Diabetes Association (ADA) guidelines, hemoglobin A1c <7.0% represents optimal control in non- diabetic patients. Different metrics may apply to specific patient populations. Standards of Medical Care in Diabetes(ADA). 11/20/2019 9:52 AM EMAIL OPERATIONS MANAGER 11/21/2019 6:27 AM EMAIL OPERATIONS MANAGER Narrative Resulting Agency Comment Performing Organization Information: Site ID: [place] Name: [facility] Address: [address] [place] [address] Director: Edson Servin D.O., MPH us [facility] Final Resul t [employer] ORDERS * LIPID PANEL (11/20/2019 9:23 AM EMAIL OPERATIONS MANAGER) CHOLESTEROL 162 <200 mg/dL [facility] ORDERS HDL 73 >50 mg/dL [facility] ORDERS TRIGLYCERIDES 59 <150 mg/dL [facility] ORDERS LDL (CALCULATED) 75 mg/dL (calc) [facility] ORDERS Comment: Reference range: <100 Desirable range <100 mg/dL for primary prevention; <70 mg/dL for patients with CHD or diabetic patients with > or = 2 CHD risk factors. LDL-C is now calculated using the Sj-Fields calculation, which is a validated novel method providing better accuracy than the Friedewald equation in the estimation of LDL-C. Sj SS et al. TAZ. 2013;310(19): 2271-8704 (http://education.Zweemie/faq/JZN734) CHOL/HDL RATIO 2.2 <5.0 (calc) [facility] ORDERS NON HDL CHOLESTEROL 89 <130 mg/dL (calc) [facility] ORDERS Comment: For patients with diabetes plus 1 major ASCVD risk factor, treating to a non-HDL-C goal of <100 mg/dL (LDL-C of <70 mg/dL) is considered a therapeutic option. 11/20/2019 9:23 AM EMAIL OPERATIONS MANAGER 11/21/2019 6:28 AM EMAIL OPERATIONS MANAGER Narrative Resulting Agency Comment Performing Organization Information: Site ID: [place] Name: [facility] Address: [address] [place] [address] [place] [address] Director: Edson Servin D.O. MPH [facility] Final Resul t [facility] ORDERS * MAMMOGRAM (11/12/2019 8:39 AM EMAIL OPERATIONS MANAGER) Anatomical Region Laterality Modality Other us Documents Scanned SCANNING Edited Result - Final from Last 3 Months or Most Recently Relevant to Health Maintenance Insurance MEDICARE AETNA MEDICARE Care Teams Material Attendant Relationship Specialty Start Date End Date Iona Garner APNP [address] [place] [id number] PCP - General NURSE PRACTITIONER 10/23/19 Kalyan Venegas MD [address] [facility] [address] [place] [address] [place] Hris Analyst CARDIOVASCULAR DISEASE 12/09/19
--- OUTSIDE RECORDS SUMMARY | 2025-08-30 09:48 | XMS_ITS | Encounter Summary ---
Author Organization [facility] Care Team Providers Care Grain Handler Name Role Phone Jan Littlejohn MD Primary Care Provider + Guerita Landis Primary Care Provider [phone] Jan Littlejohn MD Unavailable [phone] Guerita Landis Primary Care Provider [phone] Miscellaneous, Not In File Primary Care Provider Unavailable Kiley Pemberton NP Primary Care Provider [phone] Reza Rose MD Unavailable [phone] Sunny Bazzi NP Unavailable [phone] Leni Lopez MA Unavailable [phone] Darnell Truong MD Unavailable [phone] Encounter Details Date Type Department Care Team (Latest Contact Info) Description 12/13/2018 Orders Only [facility]CON[facility] Provider, MD Amarjit [address] [place] [address] Social History Tobacco Use Types Packs/Day Years Used Date Smoking Tobacco: Never Smokeless Tobacco: Never Alcohol Use Standard Drinks/Week Comments No 0 (1 standard drink = 0.6 oz pur e alcohol) Comments No Sex and Gender Information Value Date Recorded Sex Assigned at Not on file Legal Sex Female 4:48 PM SALES PROJECT MANAGER Gender Identity Female 10/13/2024 2:22 PM SALES PROJECT MANAGER Sexual Orientation Not on file Occupation [...] Comments SCAN - LABS 12/13/2018 12:00 AM SALES PROJECT MANAGER documented in this encounter Results * SCAN - LABS (12/13/2018 12:00 AM SALES PROJECT MANAGER) Narrative 12/13/2018 12:00 AM SALES PROJECT MANAGER Ordered by an unspecified provider. us Historical Provider Final Res ult documented in this encounter Visit Diagnoses Not on filedocumented in this encounter Additional Health Concerns Infection Onset Date Last Indicated Resolved Time COVID: Suspected 09/28/2022 09/28/2022 09/28/2022 1:10 PM SALES PROJECT MANAGER MRSA Comment:Dx. by Dermatology at [facility] 09/2023. 02/19/2024 02/19/2024 08/14/2024 9: 32 AM CDT documented as of this encounter Care Teams Grain Handler Relationship Specialty Start Date End Date Jan Littlejohn MD [address] [facility] [place] [address] PCP - General 10/15/17 01/21/19 Guerita Landis PA [address] [place] [address] PCP - General 01/22/19 06/06/20 Guerita Landis PA [address] [place] [address] PCP - General 06/07/20 11/27/21 Miscellaneous, Not In File PCP - General 11/28/21 10/09/22 Kiley Pemberton NP PCP - General Family Medicine 10/10/22 Jan Littlejohn MD [address] [facility] [place] [address] 01/22/19 Reza Rose MD [address] [place] [address] Referring Physician Physical Medicine and Rehabilitation 01/23/24 Sunny Bazzi NP [address] [place] [address] [address] [place] [address] Nurse Practitioner Orthopedic Surgery 02/27/24 Leni Lopez MA [address] [place] [address] [address] [place] [address] ACO Care Circulating Process Inspector 03/27/24 03/30/24 Darnell Truong MD [address] [place] [address] [address] [place] [address] Surgeon Orthopedic Surgery 08/19/24 documented as of this encounter
--- OUTSIDE RECORDS SUMMARY | 2025-08-30 09:48 | XMS_ITS | Encounter Summary ---
Author Organization [facility] Address [address] [place] [address] Phone Care Team Providers Care Wildlife Control Agent Name Role Phone Guerita Landis Primary Care Provider [phone] Jan Littlejohn MD Unavailable [phone] Guerita Landis Primary Care Provider [phone] Miscellaneous, Not In File Primary Care Provider Unavailable Kiley Pemberton NP Primary Care Provider [phone] Reza Rose MD Unavailable [phone] Sunny Bazzi NP Unavailable Leni Lopez MA Unavailable [phone] Darnell Truong MD Unavailable [phone] Encounter Details Date Type Department Care Team [...] on file Legal Sex Female 4:48 PM SUBSTITUTE SCHOOL NURSE Gender Identity Female 10/13/2024 2:22 PM SUBSTITUTE SCHOOL NURSE Sexual Orientation Not on file Occupation Industry [...] COVID: Suspected 09/28/2022 09/28/2022 09/28/2022 1:10 PM SUBSTITUTE SCHOOL NURSE MRSA Comment:Dx. by Dermatology at [facility] 09/2023. 02/19/2024 02/19/2024 08/14/2024 9: 32 AM CDT documented as of this encounter Care Teams Wildlife Control Agent Relationship Specialty Start Date End Date Guerita Landis PA [address] [place] [address] PCP - General 01/22/19 06/06/20 Guerita Landis PA [address] [place] [address] PCP - General 06/07/20 11/27/21 Miscellaneous, Not In File PCP - General 11/28/21 10/09/22 Kiley Pemberton NP PCP - General Family Medicine 10/10/22 Jan Littlejohn MD [address] [place] [address] 01/22/19 Reza Rose MD [address] [place] [address] Referring Physician Physical Medicine and Rehabilitation 01/23/24 Sunny Bazzi NP [address] [place] [address] [address] [place] [address] Nurse Practitioner Orthopedic Surgery 02/27/24 Leni Lopez, PEDRO [address] [place] [address] [address] [place] [address] ACO Care Hand Rigger 03/27/24 03/30/24 Darnell Truong MD [address] [place] [address] [address] [place] [address] Surgeon Orthopedic Surgery 08/19/24 documented as of this encounter
--- OUTSIDE RECORDS SUMMARY | 2025-08-30 09:48 | XMS_ITS | Clinical Summary ---
Author Organization [facility] Address [address] [place] [address] Phone Care Team Providers Care Auto Service Advisor Name Role Phone Unavailable Primary Care Provider [...] Comments Blood Pressure 118/58 10/05/2021 3:35 PM APPLICATIONS TESTER Pulse 75 10/05/2021 3:35 PM APPLICATIONS TESTER Temperature 36.2 C (97.2 F) 10/05/2021 3:35 PM APPLICATIONS TESTER Respiratory Rate 16 10/05/2021 3:35 PM APPLICATIONS TESTER Oxygen Saturation 99% 10/05/2021 3:35 PM APPLICATIONS TESTER Inhaled Oxygen Concentration - - Weight 74.4 kg (164 lb) 10/05/2021 3:35 PM APPLICATIONS TESTER Height 172.7 cm (5' 8) 07/15/2018 9:58 [...] (2 of 2 - PCV) 08/16/2016 08/16/2015 Medicare Initial AWV [id number] 11/04/2020 Influenza Immunization (#1) 2025 SARS-COV-2 Immunization (3 - season) 2025 01/12/2021, 12/16/2020 Pneumococcal Immunization Combined Discontinued 08/16/2015 Hepatitis B [...] to complete this topic Insurance MEDICARE C AETNA
--- OUTSIDE RECORDS SUMMARY | 2025-08-30 09:48 | XMS_ITS | Encounter Summary ---
Author Organization [facility] Healthcare Address [address] [place] [address] Care Team Providers Care Assistant Printer Floor Covering Name Role Phone Guerita Landis Primary Care Provider [phone] Jan Littlejohn MD Unavailable [phone] Guerita Landis Primary Care Provider [phone] Miscellaneous, Not In File Primary Care Provider Unavailable Kiley Pemberton NP Primary Care Provider [phone] Reza Rose MD Unavailable [phone] Sunny Bazzi NP Unavailable [phone] Leni Lopez MA Unavailable Darnell Truong MD Unavailable [phone] Encounter Details Date Type Department Care Team (Late st Contact Info) Description 04/08/2020 Telephone [facility] [address] [place] [address] Kishore Chin, RT Social History Tobacco Use Types Packs/Day Years Used Date Smoking Tobacco: Never Smokeless Tobacco: Never Alcohol Use Standard Drinks/Week Comments No 0 (1 standard drink = 0.6 oz pur e alcohol) PHQ-2 Answer Date Recorded PHQ-2 Score 0 06/26/2019 Comments No Sex and Gender Information Value Date Recorded Sex Assigned at Not on file Legal Sex Female 4:48 PM BUSINESS ADMINISTRATION TEACHER Gender Identity Female 10/13/2024 2:22 PM BUSINESS ADMINISTRATION TEACHER Sexual Orientation Not on file Occupation Industry [...] COVID: Suspected 09/28/2022 09/28/2022 09/28/2022 1:10 PM BUSINESS ADMINISTRATION TEACHER MRSA Comment:Dx. by Dermatology at [facility] 09/2023. 02/19/2024 02/19/2024 08/14/2024 9: 32 AM CDT documented as of this encounter Care Teams Assistant Printer Floor Covering Relationship Specialty Start Date End Date Guerita Landis PA [address] [place] [address] PCP - General 01/22/19 06/06/20 Guerita Landis PA [address] [place] [address] PCP - General 06/07/20 11/27/21 Miscellaneous, Not In File PCP - General 11/28/21 10/09/22 Kiley Pemberton NP PCP - General Family Medicine 10/10/22 Jan Littlejohn MD [address] [facility] [place] [address] 01/22/19 Reza Rose MD [address] [place] [address] Referring Physician Physical Medicine and Rehabilitation 01/23/24 Sunny Bazzi NP [address] [facility] [address] [place] [address] Nurse Practitioner Orthopedic Surgery 02/27/24 Leni Lopez MA [address] [place] [address] [address] [place] [address] ACO Care Film Or Tape Librarian 03/27/24 03/30/24 Darnell Truong MD [address] [facility] [address] [place] [address] Surgeon Orthopedic Surgery 08/19/24 documented as of this encounter
--- OUTSIDE RECORDS SUMMARY | 2025-08-30 09:48 | XMS_ITS | Encounter Summary ---
Author Organization [facility] Address [facility] [place] [address] Care Team Providers Care Glass Engraver Name Role Phone Iona Garner Primary Care Provider [phone] Kalyan Venegas MD Unavailable [phone] Encounter Details Date Type Department Care Team (Late Contact Info) Description 12/14/2019 [employer] Message Enc [facility] Medical Group Family & Internal Medicine [facility] [address] [place] [address] Iona Garner APNP [address] [place] [address] Follow Up/Update Social History Tobacco [...] 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 [facility] [address] [place] [address] Kalie Norwood, HEALTH SAFETY SPECIALIST [address] [facility] [address] [place] [address] documented as of this encounter Visit Diagnoses Not on filedocumented in this encounter Additional Health Concerns Assessment Noted Time PHQ-9 Depression Total Score: 0 10/23/20 19 3:13 PM IMAGE ARCHIVIST documented as of this encounter Care Teams Glass Engraver Relationship Specialty Start Date End Date Iona Garner APNP [address] [place] [address] PCP - General NURSE PRACTITIONER 10/23/19 Kalyan Venegas MD [address] [facility] [address] [place] [phone] [place] [employer] Lieutenant CARDIOVASCULAR DISEASE 12/09/19 documented as of this encounter
--- OUTSIDE RECORDS SUMMARY | 2025-08-30 09:48 | XMS_ITS | Clinical Summary ---
Author Organization [facility] Address [address] [place] [address] Care Team Providers Care Practice Physician Name Role Phone Jan Littlejohn MD Unavailable Kiley Pemberton NP Primary Care Provider [phone] Reza Rose MD Unavailable [phone] Sunny Bazzi NP Unavailable [phone] Darnell Truong MD Unavailable [phone] Allergies Active Allergy Reactions Criticality Noted Date [...] Multiple joint pain 11/30/2022 Lumbar radiculopathy 11/30/2022 emt intermediate (current) use of opiate analgesic 11/05 Lumbar facet arthropathy 11/29/2022 Abnormal Pap smear of cervix 10/17/2022 Overview (10/17/2022): 12 years ago Therapeutic opioid induced constipation 10/26/20 DDD (degenerative disc disease), lumbar 01/23/20 19 Assessment & Plan (12/25/2023 4:43 PM CHANNEL MARKETING SPECIALIST): Patient does have chronic conditions that she has been on chronic pain medications. I discussed not being able to rx Hydrocodone. Patient's situation with pain management needs to improve, new referral placed for provider. I will rx Tramadol short term until she can establish with pain management/have her knee surgery. However, patient knows that I cannot do this terminal operator. I checked their [place] VP INTEGRATION sheet and database, and it was consistent with prescribed medications. Linda's esophagus with low grade dysplasia 08/2018 Overview (07/14/2018): Added automatically from request for surgery [id number] Assessment & Plan (10/09/2022 3:55 PM CHANNEL MARKETING SPECIALIST): Continues Omeprazole. Chest pain 05/13/2018 Colon cancer screening 09/06/2017 B12 deficiency 08/30/2017 Assessment & Plan (10/09/2022 3:54 PM CHANNEL MARKETING SPECIALIST): Patient was on B12 injections with prior [...] with vitamin-D such as Oscal or Caltrate atxf-tve-ndnpxih once daily for life. We will recheck her vitamin D levels in 16 weeks. High triglycerides 08/30/2017 Assessment & Plan (08/30/2017 5:32 PM CDT): Lipid panel reviewed in detail. Encouraged increased aerobic activity. Weight loss. Decrease caloric intake. Heart healthy diet. In addition, patient will start Ozark 3 fish oil once daily. Will follow [...] hopes to avoid a trip in to [place]. Patient was encouraged to discuss this further with her primary care provider at her next scheduled visit. Chronic bilateral low back pain with right-sided sciatica 08/22/2017 Assessment & Plan (10/03/2023 11:01 AM CHANNEL MARKETING SPECIALIST): Establishing with new pain management 10/15/23. Assessment & Plan (10/18/2022 10:03 AM CHANNEL MARKETING SPECIALIST): Has not seen pain management since having to switch insurances, has scheduled appointment with Dr. Montana on 11/28/21. Patient was previously taking [place] for her pain from prior pain management but has not taken for about 2 months d/t insurance not covering her original pain management provider anymore. Patient's pain is not controlled, will rx Tramadol temporarily until she is able to get in with Pain Management on 11/28. Assessment & Plan (10/09/2022 3:56 PM CHANNEL MARKETING SPECIALIST): Pt has spinal simulator in place, needs new referral to pain management. Referral placed to Dr. [place] for Agency location. Type 2 diabetes mellitus wit hout complication, without long-term current use of insulin 08/22/2017 Assessment & Plan (10/03/2023 11:00 AM CHANNEL MARKETING SPECIALIST): A1c 5.9. diet controlled, continues focusing on diet/exercise. Assessment & Plan (02/21/2023 2:48 PM CDT): Diet controlled. No changes today. Assessment & Plan (10/09/2022 3:54 PM CHANNEL MARKETING SPECIALIST): Labs ordered Diet controlled. 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 Discussed sleep medicine again but she prefers to hold off and monitor for now. Denies snoring or apneic episodes. Pulmonary hypertension 03/05/2017 Restless legs syndrome (RLS) 03/05/2017 Assessment & Plan (10/09/2022 3:56 PM CHANNEL MARKETING SPECIALIST): Pt taking Gabapentin. Palpitations 03/20/2014 Overview (02/06/2017): Palpitations Insomnia secondary to chronic pain 03/20/2014 Overview (02/07/2017): Insomnia Bipolar II disorder 03/20/2014 Overview (08/22/2017): Bipolar disorder Assessment & Plan (10/09/2022 3:55 PM CHANNEL MARKETING SPECIALIST): Currently taking Lexapro 10 mg, stable Herpes simplex type 2 infection 05/14/2011 Overview (02/07/2017): HSV-2 infection Diarrhea 07/16/2010 Diastolic dysfunction 07/15/2010 Assessment & Plan (10/18/2022 9:58 AM CHANNEL MARKETING SPECIALIST): Has echo scheduled for 11/06/22 and appointment [...] Encounters Date Type Department Care Team Description 08/03/2025 Telephone [facility] Orthopedics and Sports Medicine [address] [address] Basia Lewis PA 06/07/2025 Telephone [facility] Primary Care at [address] [address] Kiley Pemberton NP from Last 3 Months Immunizations Immunization Administration [...] (degenerative joint disease) Hyperlipidemia Coronary artery disease [place] 2008 Bipolar disorder Interstitial cystitis Pulmonary hypertension [...] drink = 0.6 oz pur e alcohol) [facility] Utilities Answer Date Recorded In the past 12 months has e electric, gas, oil, or water [employer] threatened to shut off services in your [...] week 02/27/2024 How often do you attend [facility] or [facility] services? Never 02/27/2024 Do you belong to any clubs o r organizations such as moravian groups, unions, fraternal or athletic groups, or [...] place to sleep or slept in a detention (including now)? No 02/27/2024 Personal Safety Answer Date Recorded Have you ever been in or are you currently in a harmful physical or emotional relationship or is someone making you feel afraid or unsafe? Denies 08/19/2024 Comments No Sex and Gender Information Value Date Recorded Sex Assigned at Not on file Legal Sex Female 4:48 PM CHANNEL MARKETING SPECIALIST Gender Identity Female 10/13/2024 2:22 PM CHANNEL MARKETING SPECIALIST Sexual Orientation Not on file Occupation Industry [...] Comments Blood Pressure 122/69 10/15/2024 10:23 AM CHANNEL MARKETING SPECIALIST Pulse 69 10/15/2024 10:23 AM CHANNEL MARKETING SPECIALIST Temperature 36.6 C (97.8 F) 08/19/2024 3:11 PM CDT Respiratory Rate 16 08/19/2024 3:11 PM CDT Oxygen Saturation 97% 08/19/2024 3:11 PM CDT Inhaled Oxygen Concentration - - Weight 77.1 kg (170 lb) 10/15/2024 10:23 AM CHANNEL MARKETING SPECIALIST Height 172.7 cm (5' 8) 10/15/2024 10:23 AM CHANNEL MARKETING SPECIALIST Body Mass Index 25.85 10/15/2024 10:23 AM CHANNEL MARKETING SPECIALIST Plan of Treatment Health Maintenance Due Date [...] 09/30/2024 , 11/06/2022 Lipid Panel 09/30/2024 09/30/2023, 010 01/2023, 06/05/2022, Additional history exists Hemoglobin A1C 01/19/2025 07/22/2024, 09/05, 11/06/2022, Additional history exists Covid-19 Vaccine (3 - 2024-2 6 season) 2025 01/12/2021, 12/16/2020 [...] overall activity Medical Devices Implanted Type Area Plate Preparer Device Identifier Shelf Expiration Date Model / Serial / Lot Neurostimulator- 06/24/2019 Implanted:2018 by Edson Hung MD (Quantity not on file) Neurostimulator Back Medtronic Neuro [id number] / [id number] / Neurostimulator Lead-06/24/2019 Implanted:2018 by Edson Hung MD (Quantity not on file) Neurostimulator Back Medtronic Neuro [id number] / / [employer] Attune Cruciate Retain Cementless Knee Left 6 Component Femoral [id number] - [id number] Implanted:Qty: 1 on 02/25/2024 by Abdullahi Vidales MD at [facility] Left: Knee [employer] 01/01/2034 [id number] / / [id number] [employer] Attune Fb Tib Base Sz 5 Por [id number] - [id number] Implanted:Qty: 1 on 02/25/2024 by Abdullahi Vidales MD at [facility] Left: Knee [employer] 10/03/2024 [id number] / / [id number] [employer] Insert Tibial Knee Fixed Lm Posterior Stabilized Attune 5mm Size 6 Polyethylene [id number] - [id number] Implanted:Qty: 1 on 02/25/2024 by Abdullahi Vidales MD at [facility] Left: Knee [employer] 10/03/2031 [id number] / / [id number] [employer] Actis 115mm Collar Hip 10 /14 High Offset Taper Stem Femoral [id number] - [id number] Implanted:Qty: 1 on 08/19/2024 by Darnell Truong MD at [facility] Left: Hip [employer] [id number] 03/03/2034 [id number] / / [id number] [employer] Articul/Oumar 36mm Cementless Hip +5mm /14 Taper Head Femoral Latex Free [id number] - [id number] Implanted:Qty: 1 on 08/19/2024 by Darnell Truong MD at [facility] Left: Hip [employer] [id number] 05/03/2029 [id number] / / [id number] [employer] Hart 54mm 36mm Hip Neutral Liner Acetabular Altrx Sterile Latex Free [id number] - [id number] Implanted:Qty: 1 on 08/19/2024 by Darnell Truong MD at [facility] Left: Hip [employer] [id number] 05/03/2029 [id number] / / [id number] [employer] Hart 54mm Sector Hip Shell Acetabular Gription Sterile Latex Free [id number] - [id number] Implanted:Qty: 1 on 08/19/2024 by Darnell Truong MD at [facility] Left: Hip [employer] [id number] 03/03/2034 [id number] / / [id number] [employer] Hart 6.5mm 25mm Acetabular Cancellous Screw Bone Sterile 1217-25-500 - [id number] Implanted:Qty: 1 on 08/19/2024 by Darnell Truong MD at [facility] Left: Hip [employer] [id number] 04/03/2034 0 / / [id number] [employer] Hart 6.5mm 35mm Acetabular Cancellous Screw Bone Sterile 1217-35-500 - [id number] Implanted:Qty: 1 on 08/19/2024 by Darnell Truong MD at [facility] Left: Hip [employer] [id number] 04/03/2034 0 / / [id number] Procedures Procedure Name Priority Date/Time Associated Diagnosis Comments EGFR Routine 07/22/2024 10:50 AM CDT Pre-operative exam HEMOGLOBIN A1C Routine 07/22/2024 10:50 AM CDT Pre-operative exam LIPID PANEL Routine 09/30/2023 8:04 AM CHANNEL MARKETING SPECIALIST Type 2 diabetes mellitus without complication, without long-term current use of insulin (HCC) ALBUMIN CREATININE RATIO, URINE Routine 09/30/2023 8:04 AM CHANNEL MARKETING SPECIALIST Type 2 diabetes mellitus without complication, without [...] ORDERABLES Fin al Result Performing Organization Address [facility] de Phone Number MICHELLE BARLOW ([place]) [address] [facility] [place] [address] * (ABNORMAL) Hemoglobin A1c (07/22/2024 10:50 AM CDT) Hgb A1C 5.7(H) 4.0 - 5.6 % Estimated Average Glucose 117 mg/dL MICHELLE [facility] ([place]) Comment: The ADA recommends reporting an estimated Average Glucose (eAG) with all Hemoglobin A1c results using the equation derived from a study of 507 normal and diabetic adults. Minority populations were underrepresented and children were not included. (Diabetes Care 31:4718-1259, 2008). The eAG is not equivalent to a fasting glucose. Blood 07/22/2024 10:5 0 AM CDT 07/22/2024 11:05 AM CDT Darnell Truong MD LAB BLOOD ORDERABLES Fin al Result Performing Organization Address [facility] Co de Phone Number MICHELLE [facility] ([place]) [address] [facility] [place] [address] * Albumin Creatinine Ratio, Urine (09/30/2023 8:04 AM CHANNEL MARKETING SPECIALIST) Albumin Ur <12.0 mg/L MICHELLE Comment: Interpretive Data No reference range established. Current interpretive data was last revised 2019. Creatinine Ur 23.0 mg/dL MICHELLE CRAVEN Comment: Interpretive Data No reference range established. Current interpretive data was last revised 2019. Albumin Creatinine Ratio, Ur See Comment 1 - 29 MICHELLE CRAVEN Comment:Unable to calculate Urine 09/30/2023 8:04 AM CHANNEL MARKETING SPECIALIST 09/30/2023 2:17 PM CHANNEL MARKETING SPECIALIST us Kiley Pemberton NP LAB URINE ORDERABLES Final Resul t MICHELLE CRAVEN [address] [address] Department [place] [address] * Lipid panel (09/30/2023 8:04 AM CHANNEL MARKETING SPECIALIST) Cholesterol 150 30 - 199 mg/dL MICHELLE [...] 2 MICHELLE CRAVEN Blood 09/30/2023 8:04 AM CHANNEL MARKETING SPECIALIST 09/30/2023 2:17 PM CHANNEL MARKETING SPECIALIST us Kiley Pemberton NP LAB BLOOD ORDERABLES Final Resul t MICHELLE CRAVEN [address] [address] Department [place] [address] * DIABETES EYE EXAM (09/25/2023) Historical Provider [...] - GENER AL ORDERABLES Final Result MICHELLE CRAVEN [address] [address] [place] [address] from Last 3 Months or Most Recently Relevant to Health [place] [address] MEDICARE [facility] Address: [address] [address] [place] [address] [facility] [employer] [address] Advance Directives For more information, please contact: [phone] * Full Code (Latest Code Status on [...] 10:04 PM 05/13/2018 9:18 PM Care Teams Practice Physician Relationship Specialty Start Date End Date Kiley Pemberton NP [address] [facility] [place] [address] PCP - General Family Medicine 10/10/22 [place] [address] [place] [address] [place] [address] 01/22/19 Reza Rose MD [address] [place] [address] Referring Physician Physical Medicine and Rehabilitation 01/23/24 Sunny Bazzi NP [address] [place] [address] Nurse Practitioner Orthopedic Surgery 02/27/24 Darnell Truong MD [address] [place] [address] Surgeon Orthopedic Surgery 08/19/24
--- OUTSIDE RECORDS SUMMARY | 2025-08-30 09:48 | XMS_ITS | Encounter Summary ---
Author Organization [facility] Address [address] [place] [address] Phone Care Team Providers Care Logistics Team Leader Name Role Phone Guerita Landis Primary Care Provider [phone] Jan Litltejohn MD Unavailable [phone] Guerita Landis Primary Care Provider [phone] Miscellaneous, Not In File Primary Care Provider Unavailable Kiley Pemberton NP Primary Care Provider [phone] Reza Rose MD Unavailable [phone] Sunny Bazzi NP Unavailable [phone] Leni Lopez MA Unavailable [phone] Darnell Truong MD Unavailable [phone] Encounter Details Date Type Department Care Team [...] on file Legal Sex Female 4:48 PM COOK RESTAURANT Gender Identity Female 10/13/2024 2:22 PM COOK RESTAURANT Sexual Orientation Not on file Occupation Industry [...] COVID: Suspected 09/28/2022 09/28/2022 09/28/2022 1:10 PM COOK RESTAURANT MRSA Comment:Dx. by Dermatology at [facility] 09/2023. 02/19/2024 02/19/2024 08/14/2024 9: 32 AM CDT documented as of this encounter Care Teams Logistics Team Leader Relationship Specialty Start Date End Date Guerita Landis PA [address] [place] [address] PCP - General 01/22/19 06/06/20 Guerita Landis PA [address] [place] [address] PCP - General 06/07/20 11/27/21 Miscellaneous, Not In File PCP - General 11/28/21 10/09/22 Kiley Pemberton NP PCP - General Family Medicine 10/10/22 Jan Littlejohn MD [address] [facility] [place] [address] 01/22/19 Reza Rose MD [address] [place] [address] Referring Physician Physical Medicine and Rehabilitation 01/23/24 Sunny Bazzi NP [address] [place] [address] [address] [place] [address] Nurse Practitioner Orthopedic Surgery 02/27/24 Leni Lopez MA [address] [place] [address] [address] [place] [address] ACO Care Graphic Engineer 03/27/24 03/30/24 Darnell Truong MD [address] [place] [address] [address] [place] [address] Surgeon Orthopedic Surgery 08/19/24 documented as of this encounter
[2025-08-30 13:14] LABS: Hematocrit 30.3 % (37.0-47.0); Hemoglobin 9.5 g/dL (12.0-15.0); Immature Granulocyte Percent A 0.2 % (0-0.5); Lymphocytes Absolute Auto 1.71 K/mm3 (0.9-3.2); Mean Corpuscular HGB Conc 31.4 g/dl (32-36); Mean Corpuscular Hemoglobin 27.0 pg (26-34); Mean Corpuscular Volume 86.1 fl (80-100); Nucleated Red Blood Cells Absolute Auto 0.000 K/mm3 (0.0-0.012); Nucleated Red Blood Cells Perc 0.0 % (0.0-0.2); Platelet Count Result 255 k/mm3 (150-375); Red Blood Count 3.52 M/mm3 (4.2-5.4); White Blood Count 4.4 K/mm3 (4.5-10.0)
[2025-08-30 13:25] LABS: Alanine Aminotransferase 11 U/L (6-35); Albumin Level 4.3 g/dL (3.5-5.1); Alkaline Phosphatase 84 U/L (38-126); Anion Gap 9 mmol/L (4-12); Aspartate Amino Transferase 57 U/L (14-36); Bilirubin,Total 0.7 mg/dL (0.2-1.3); Blood Urea Nitrogen 14 mg/dL (7-17); Calcium 8.8 mg/dL (8.4-10.2); Carbon Dioxide 27 mmol/L (22-30); Chloride 101 mmol/L (98-107); Cholesterol 148 mg/dL (0-200); Estimated Glomerular Filt Rate > 60; Glucose 87 mg/dL (65-110); HDL Direct 47 mg/dL; Potassium 4.1 mmol/L (3.4-5.0); Sodium 137 mmol/L (137-145); Total Protein 7.7 g/dL (6.3-8.2); Triglycerides 83 mg/dL (<150)
[2025-08-30 15:41] LABS: Vitamin B12 601.0 pg/mL (239-931)
[2025-09-01 11:08] LABS: ANA by IFA Rfx Titer/Pattern Positive (.)
[2025-09-06 15:09] LABS: Summary Report (Summary) FINAL (.)
== END 2025-08-30 09:06 | disposition home or self-care (01) ==
DX: D64.9 Anemia, unspecified (principal); I25.10 Atherosclerotic heart disease of native coronary artery without angina pectoris; Z13.220 Encounter for screening for lipoid disorders; E78.5 Hyperlipidemia, unspecified; R53.83 Other fatigue; M25.50 Pain in unspecified joint; E16.2 Hypoglycemia, unspecified; E55.9 Vitamin D deficiency, unspecified
CPT/HCPCS: 36415; 80053; 80061; 80307; 82172; 82175; 82306; 82570; 82607; 82746; 83655; 83825; 84207; 85025; 85652; 86038; 86376; 86430

== ENCOUNTER 2025-09-13 16:40 | Emergency (ER) | payer OTHER, SELFPAY ==
--- OUTSIDE RECORDS SUMMARY | 2024-05-29 09:12 | XMS_ITS | Continuity of Care Document ---
Author Organization [facility] Address [address] [place] [address] Phone Care Team Providers Care Nurse Practitioner Physician Assistant Name Role Phone Bryce Echeverria PT Unavailable Unavailable Procedures Procedure Date Doc neg elder mal no plan PRES/ABSN URINE INCON ASSESS PT Evaluation Moderate Complexity Neuromuscular Re-Ed Therapeutic Exercise Advance Directives Directive Yes / No Effective Date File Name No Information Encounters Encounter Description Practice Location Reason(s) For Visit Diagnoses Date Provider Providers Copied on Encounter [facility], [address] [address], [place], [place], [id number], tel:[phone] [place] No Information 4 Juwan Wu. . [facility], [address], [place], [place], [id number], tel:[phone] [place] No Information 4 Juwan Wu. . Referring Provider: Sarah Otero, [address], [place], [address]. tel:[phone] Family History Family Member Type Diagnosis Age At Onset No Information Payers Payer name Insurance type Covered democrat ID Authoriza ticelso(s) Terri [facility] CI [id number] Social History Type Description Quantity Date Captured Comments Sex Female Smoking Status No Information Chief Complaint And Reason For Visit No Information Reason For Referral Reason For Referral No Information History Of Present Illness Encounter Date Complaint History Of Prese nt Illness No Information Functional Status Date Functional Assessmen t No Information Instructions Date Instruction Additional Infor mation No Information Assessments Type Assessment Date No Information Patient Care Teams Name Effective Dates (start - stop) Status Members No Information
[2025-09-13] VITALS (7 sets, daily range): BP systolic 118–146; BP diastolic 50–68; PULSE 70–81; RESP 12–19; TEMP 36.7; O2SAT 95–98
--- NOTE | ~2025-09-13 | CT_ITS ---
EXAMINATION: CT brain wo reuben, 09/13/2025 16:40 SEWER REPAIRER HISTORY: LKW 1610; headache, blurred vision, speech COMPARISON: No comparisons available. Technique: Axial images obtained of the brain without contrast. One or more of the following dose reduction techniques were used: automated exposure control, adjustment of the mA and/or kV according to patient size, use of iterative reconstruction technique. Findings: No acute infarct or parenchymal hemorrhage. No abnormal mass or mass effect. No midline shift. No extra-axial fluid collections. No hydrocephalus. Mastoid air cells unremarkable. Sinuses and orbits unremarkable. No acute fracture. No significant facial or scalp soft tissue swelling evident. No radiopaque foreign body is seen. Impression: 1.No acute intracranial abnormality. Reviewed, dictated and finalized at location P. R REPAIRER Impression: 1.No acute intracranial abnormality.
--- NOTE | ~2025-09-13 | CT_ITS ---
REFERENCE: [None available.] TECHNIQUE: Axial mm images of the head and neck were obtained without and with infusion of 100 mL of Isovue 370 of intravenous contrast. Postcontrast 1.25 mm axial images were then obtained. On an independent workstation, 0.625 mm axial images were utilized to render MIP and MPR images of the intracranial circulation. CTA NECK: The aortic arch demonstrates normal caliber and patency. Normal branching pattern is noted of the supraaortic vessels. The origins of the supraaortic vessels are widely patent.. The common carotid and cervical segments of the ICA and ECA demonstrate normal caliber and patency. The vertebral arteries are symmetric in size, demonstrating normal patency. CTA HEAD: The intracranial ICA, PATRICA, and MCA demonstrate normal caliber and patency. No hemodynamically significant stenosis or aneurysm is identified. The distal vertebral, basilar, and bilateral posterior cerebral arteries demonstrate normal caliber and patency. The superior cerebellar arteries are also widely patent. NONVASCULAR FINDINGS: The soft tissue of the neck is unremarkable. No mass or pathologic enhancement is noted. There is no pathologically enlarged lymphadenopathy. The airway is patent. No acute intracranial hemorrhage, mass, or extraaxial fluid collections are noted. Ventricular size is normal. The skull is intact. The visualized mastoid air cells and sinuses are clear. There is no pathologic enhancement. IMPRESSION: No hemodynamically significant stenosis is noted of the cervical and intracranial arterial vasculature. Reviewed, dictated and finalized at location S. TRIMMER IMPRESSION: No hemodynamically significant stenosis is noted of the cervical and intracrani al arterial vasculature.
--- NOTE | ~2025-09-13 | XR_ITS ---
XR chest 1V portable INDICATION:stroke wokr up . REFERENCE: None FINDINGS: A single AP of the chest demonstrates normal heart size. The lungs are clear. There is no evidence of pneumothorax or pleural effusion. IMPRESSION: No acute pulmonary findings. Reviewed, dictated and finalized at location S. OGRAPHY INSTRUCTOR
--- OUTSIDE RECORDS SUMMARY | 2025-09-13 16:44 | XMS_ITS | Encounter Summary ---
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 Not on file Not on file documented as of this encounter Plan of Treatment Upcoming Encounters Date Type Department Care Team (Late st Contact Info) Description 10/26/2025 9:40 AM SLITTER CREASER SLOTTER OPERATOR Office Visit [facility] Multispecialty Care - [address] [place] [address] Kalie Norwood N, AUTO WRECKER [address] [place] [address] documented as of this encounter Procedures Procedure Name Priority Date/Time Associated Diagnosis Comments CBC (OUTSIDE LAB) Routine 07/01/2020 COMPREHENSIVE METABOLIC PANEL Routine 07/01/2020 THYROID STIM HORMONE TSH Routine 07/01/2020 MAGNESIUM Routine 07/01/2020 documented in this encounter Results * MAGNESIUM (07/01/2020) MAGNESIUM 1.9 07/01/2020 us Doc [facility] Final Result * THYROID STIM HORMONE, TSH (07/01/2020) Pathologist [facility] TSH 2.820 07/01/2020 us Doc [facility] Final Result * COMPREHENSIVE METABOLIC PANEL (07/01/2020) Pathologist [facility] SODIUM S/P/B 137 POTASSIUM S/P/B 4.1 CO2 [...] Depression Total Score: 0 10/23/20 3:13 PM SLITTER CREASER SLOTTER OPERATOR documented as of this encounter Care Teams Systems Mgr Relationship Specialty Start Date End Date Iona Garner APNP [address] [place] [address] PCP - General NURSE PRACTITIONER 10/23/19 Kalyan Venegas MD [address] [facility] [address] [place] [address] Broussard Bottom Stop Attacher CARDIOVASCULAR DISEASE 12/09/19 documented as of this encounter
--- OUTSIDE RECORDS SUMMARY | 2025-09-13 16:44 | XMS_ITS | Encounter Summary ---
Author Organization [facility] Care Team Providers Care Tax Processor Name Role Phone Jan Littlejohn MD Primary Care Provider + Guerita Cochran Primary Care Provider [phone] Jan Littlejohn MD Unavailable [phone] Guerita Cochran Primary Care Provider [phone] Miscellaneous, Not In File Primary Care Provider Unavailable Kiley Pemberton NP Primary Care Provider Reza Rose MD Unavailable [phone] Sunny Bazzi NP Unavailable [phone] Leni Lopez MA Unavailable [phone] Darnell Truogn MD Unavailable [phone] Encounter Details Date Type Department Care Team (Latest Contact Info) Description 12/13/2018 Orders Only [facility]INCONV Provider, MD Amarjit [address] [place] [address] Social History Tobacco Use Types Packs/Day Years Used Date Smoking Tobacco: Never Smokeless Tobacco: Never Alcohol Use Standard Drinks/Week Comments No 0 (1 standard drink = 0.6 oz pur e alcohol) Comments No Sex and Gender Information Value Date Recorded Sex Assigned at Not on file Legal Sex Female 4:48 PM CHIMNEY SUPERVISOR BRICK Gender Identity Female 10/13/2024 2:22 PM CHIMNEY SUPERVISOR BRICK Sexual Orientation Not on file Occupation Industry [...] Comments SCAN - LABS 12/13/2018 12:00 AM CHIMNEY SUPERVISOR BRICK documented in this encounter Results * SCAN - LABS (12/13/2018 12:00 AM CHIMNEY SUPERVISOR BRICK) Narrative 12/13/2018 12:00 AM CHIMNEY SUPERVISOR BRICK Ordered by an unspecified provider. us Historical Provider Final Res ult documented in this encounter Visit Diagnoses Not on filedocumented in this encounter Additional Health Concerns Infection Onset Date Last Indicated Resolved Time COVID: Suspected 09/28/2022 09/28/2022 09/28/2022 1:10 PM CHIMNEY SUPERVISOR BRICK MRSA Comment:Dx. by Dermatology at [facility] 09/2023. 02/19/2024 02/19/2024 08/14/2024 9: 32 AM CDT documented as of this encounter Care Teams Tax Processor Relationship Specialty Start Date End Date Jan Littlejohn MD [address] [facility] [place] [address] PCP - General 10/15/17 01/21/19 Guerita Cochran PA [address] [place] [address] PCP - General 01/22/19 06/06/20 Guerita Cochran PA [address] [place] [address] PCP - General 06/07/20 11/27/21 Miscellaneous, Not In File PCP - General 11/28/21 10/09/22 Kiley Pemberton NP PCP - General Family Medicine 10/10/22 Jan Littlejohn MD [address] [facility] [place] [address] 01/22/19 Reza Rose MD [address] [place] [address] Referring Physician Physical Medicine and Rehabilitation 01/23/24 Sunny Bazzi NP [address] [place] [address] [address] [place] [address] Nurse Practitioner Orthopedic Surgery 02/27/24 Leni Lopez MA [address] [place] [address] [address] [place] [address] ACO Care Director Of Nuclear Medicine 03/27/24 03/30/24 Darnell Truong MD [address] [place] [address] [address] [place] [address] Surgeon Orthopedic Surgery 08/19/24 documented as of this encounter
--- OUTSIDE RECORDS SUMMARY | 2025-09-13 16:44 | XMS_ITS | Clinical Summary ---
Author Organization [facility] Address [address] [place] [address] Phone Care Team Providers Care Boat Tester Name Role Phone Unavailable Primary Care Provider [...] Comments Blood Pressure 118/58 10/05/2021 3:35 PM MINERAL MIXER Pulse 75 10/05/2021 3:35 PM MINERAL MIXER Temperature 36.2 C (97.2 F) 10/05/2021 3:35 PM MINERAL MIXER Respiratory Rate 16 10/05/2021 3:35 PM MINERAL MIXER Oxygen Saturation 99% 10/05/2021 3:35 PM MINERAL MIXER Inhaled Oxygen Concentration - - Weight 74.4 kg (164 lb) 10/05/2021 3:35 PM MINERAL MIXER Height 172.7 cm (5' 8) 07/15/2018 9:58 [...]
--- OUTSIDE RECORDS SUMMARY | 2025-09-13 16:44 | XMS_ITS | Encounter Summary ---
Author Organization [facility] Address [address] [place] [address] Phone Care Team Providers Care Carbon Sequestration Plant Manager Name Role Phone Guerita Cochran Primary Care Provider [phone] Jan Littlejohn MD Unavailable [phone] Guerita Cochran Primary Care Provider [phone] Miscellaneous, Not In File Primary Care Provider Unavailable Kiley Pemberton NP Primary Care Provider [phone] Reza Rose MD Unavailable [phone] Sunny Bazzi NP Unavailable [phone] Leni Lopez MA Unavailable [phone] Darnell Truong MD Unavailable [phone] Encounter Details Date Type Department Care Team [...] on file Legal Sex Female 4:48 PM COMMUNITY HEALTH EDUCATION COORDINATOR Gender Identity Female 10/13/2024 2:22 PM COMMUNITY HEALTH EDUCATION COORDINATOR Sexual Orientation Not on file Occupation Industry [...] COVID: Suspected 09/28/2022 09/28/2022 09/28/2022 1:10 PM COMMUNITY HEALTH EDUCATION COORDINATOR MRSA Comment:Dx. by Dermatology at [facility] 09/2023. 02/19/2024 02/19/2024 08/14/2024 9: 32 AM CDT documented as of this encounter Care Teams Carbon Sequestration Plant Manager Relationship Specialty Start Date End Date Guerita Cochran PA [address] [place] [address] PCP - General 01/22/19 06/06/20 Guerita Cochran PA [address] [place] [address] PCP - General 06/07/20 11/27/21 Miscellaneous, Not In File PCP - General 11/28/21 10/09/22 Kiley Pemberton NP PCP - General Family Medicine 10/10/22 Jan Littlejohn MD [address] [facility] [place] [address] 01/22/19 Reza Rsoe MD [address] [place] [address] Referring Physician Physical Medicine and Rehabilitation 01/23/24 Sunny Bazzi NP [address] [place] [address] [address] [place] [address] Nurse Practitioner Orthopedic Surgery 02/27/24 Leni Lopez MA [address] [place] [address] [address] [place] [address] ACO Care Chain Pegger 03/27/24 03/30/24 Darnell Truong MD [address] [place] [address] [address] [place] [address] Surgeon Orthopedic Surgery 08/19/24 documented as of this encounter
--- OUTSIDE RECORDS SUMMARY | 2025-09-13 16:44 | XMS_ITS | Clinical Summary ---
Author Organization [facility] Address [address] [place] [address] Care Team Providers Care Tow Motor Driver Name Role Phone Iona Garner Primary Care Provider Kalyan Venegas MD Unavailable [phone] Allergies Active Allergy Reactions Criticality Noted Date [...] Overview: Added automatically from request for surgery [id number] B12 deficiency 08/30/2017 Overview (09/28/2019): Last Assessment & Plan: Patient will begin oral B12 1000 mcg tablet once daily. Repeat B12 level scheduled with routine lab in November. High triglycerides 08/30/2017 Overview (09/28/2019): Last Assessment & Plan: Lipid panel reviewed in detail. Encouraged increased aerobic activity. Weight loss. Decrease caloric intake. Heart healthy diet. In addition, patient will start [place] 3 fish oil once daily. Will follow up with primary care provider for routine blood work. Hypovitaminosis D 08/30/2017 Overview (09/28/2019): Last Assessment & Plan: Patient will take 5000 units of vitamin-D daily for the next 90 days. She will take calcium with vitamin-D such as Oscal or Caltrate xdxo-sjt-[id number] once daily for life. 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 [facility] [address] [place] [address] Kalie Norwood, ADILSON [address] [facility] [address] [place] [address] Health Maintenance Due Date Last Done Comments Colorectal Cancer Screening Colonoscopy (10 Years) 1950 EGD-Linda's Surveillance 1950 Kidney Health Evaluation 1950 Annual Medicare Wellness Visit 02/08/2017 Pneumococcal Vaccine: 50+ Years (2 of 2 - PPSV23, PCV20, or PCV21) 10/25/2017 08/30/2017 Lipid Panel 11/20/2020 11/20/2019 Mammogram Screening 11/12/2021 11/12/2019, 8 Diabetes: Retinopathy Eye Exam 07/18/2022 07/18/2020, 12/28/2019 PHQ-2 (Physician [place]) 11/04/2024 Hemoglobin A1C 01/19/2025 07/22/2024, 09/05, 11/06/2022, [...] GENERIC (SCAN ORDER) Routine 11/27/2019 9:30 AM CLINIC MGR HEMOGLOBIN, GLYCOSYLATED Routine 11/20/2019 9:52 AM CLINIC MGR Type 2 diabetes mellitus without complication, without long-term current use of insulin LIPID PANEL Routine 11/20/2019 9:23 AM CLINIC MGR High triglycerides MAMMOGRAM GENERIC (SCAN ORDER) Routine 11/12/2019 8:39 AM CLINIC MGR from Last 3 Months or Most Recently Relevant to Health Maintenance Results * DIABETIC RETINOPATHY EXAM (07/18/2020) us Documents Scanned SCANNING Final Result Performing Organization Address City/[facility]/ZIP Co de Phone Number [facility] * BONE DENSITY (11/27/2019 9:30 AM CLINIC MGR) Anatomical Region Laterality Modality Other us Documents Scanned SCANNING Edited Result - Final * HEMOGLOBIN, GLYCOSYLATED (11/20/2019 9:52 AM CLINIC MGR) HGB A1C 5.0 <5.7 % of total [...] diagnosis of diabetes in children. According to [place] Diabetes Association (ADA) guidelines, hemoglobin A1c <7.0% represents optimal control in non- diabetic patients. Different metrics may apply to specific patient populations. Standards of Medical Care in Diabetes(ADA). 11/20/2019 9:52 AM CLINIC MGR 11/21/2019 6:27 AM CLINIC MGR Narrative Resulting Agency Comment Performing Organization Information: Site ID: [id number] Name: [facility] Address: [address] [place] [address] Director: Edson Servin D.O., MPH us [facility] Final Resul t [employer] ORDERS * LIPID PANEL (11/20/2019 9:23 AM CLINIC MGR) CHOLESTEROL 162 <200 mg/dL [facility] - [...] LDL-C. Sj SS et al. TAZ. 2013;310(19): 6184-8788 (http://education.[employer]/faq/JSN387) CHOL/HDL RATIO 2.2 <5.0 (calc) [facility] [place] ORDERS NON HDL CHOLESTEROL 89 <130 mg/dL (calc) [facility] ORDERS Comment: For patients with diabetes plus 1 major ASCVD risk factor, treating to a non-HDL-C goal of <100 mg/dL (LDL-C of <70 mg/dL) is considered a therapeutic option. 11/20/2019 9:23 AM CLINIC MGR 11/21/2019 6:28 AM CLINIC MGR Narrative Resulting Agency Comment Performing Organization Information: Site ID: [id number] Name: [facility] Address: [address] [place] [address] [place] [address] Director: Edson Servin D.O. MPH [facility] Final Resul t [facility] [place] ORDERS * MAMMOGRAM (11/12/2019 8:39 AM CLINIC MGR) Anatomical Region Laterality Modality Other us Documents Scanned SCANNING Edited Result - Final from Last 3 Months or Most Recently Relevant to Health Maintenance Insurance MEDICARE [employer] MEDICARE Care Teams Tow Motor Driver Relationship Specialty Start Date End Date Iona Garner APNP [address] [place] [address] [phone] PCP - General NURSE PRACTITIONER 10/23/19 Kalyan Venegas MD [address] [facility] [address] [place] [address] [place] Senior Backup Administrator CARDIOVASCULAR DISEASE 12/09/19
--- OUTSIDE RECORDS SUMMARY | 2025-09-13 16:44 | XMS_ITS | Encounter Summary ---
Author Organization [facility] Address [address] [place] [address] Phone Care Team Providers Care Business Operations Director Name Role Phone Guerita Cochran Primary Care Provider [phone] Jan Littlejohn MD Unavailable [phone] Guerita Cochran Primary Care Provider [phone] Miscellaneous, Not In File Primary Care Provider Unavailable Kiley Pemberton NP Primary Care Provider [phone] Reza Rose MD Unavailable [phone] Sunny Bazzi NP Unavailable [phone] Leni Lopez MA Unavailable [phone] Darnell Truong MD Unavailable [phone] Encounter Details Date Type Department Care Team [...] on file Legal Sex Female 4:48 PM FRAME TENDER Gender Identity Female 10/13/2024 2:22 PM FRAME TENDER Sexual Orientation Not on file Occupation Industry Job Start Date Job End Date retired Not on file Not on file Not on file documented as of this encounter Plan of Treatment Not on file documented as of this encounter Goals Goal Patient Goal Type Associated Problems Recent Progress Patient-Stated? Author [facility] On track( 018 12:12 PM CDT) aDvid Washington, RN Note: Increase overall activity documented [...] COVID: Suspected 09/28/2022 09/28/2022 09/28/2022 1:10 PM FRAME TENDER MRSA Comment:[facility]. 02/19/2024 02/19/2024 08/14/2024 9: 32 AM CDT documented as of this encounter Care Teams Business Operations Director Relationship Specialty Start Date End Date Guerita Cochran PA [address] [place] [address] PCP - General 01/22/19 06/06/20 Guerita Cochran PA [address] [place] [address] PCP - General 06/07/20 11/27/21 Miscellaneous, Not In File PCP - General 11/28/21 10/09/22 Kiley Pemberton NP PCP - General Family Medicine 10/10/22 Jan Littlejohn MD [address] [facility] [address] 01/22/19 Reza Rose MD [address] [place] [address] Referring Physician Physical Medicine and Rehabilitation 01/23/24 Sunny Bazzi NP [address] [place] [address] [address] [place] [address] Nurse Practitioner Orthopedic Surgery 02/27/24 Leni Lopez, PEDRO [address] [place] [address] [address] [place] [address] ACO Care Lead Inspector 03/27/24 03/30/24 Darnell Truong MD [address] [place] [address] [address] [place] [address] Surgeon Orthopedic Surgery 08/19/24 documented as of this encounter
--- OUTSIDE RECORDS SUMMARY | 2025-09-13 16:44 | XMS_ITS | Clinical Summary ---
Author Organization [facility] Address [address] [place] [address] Care Team Providers Care Repairer General Name Role Phone Jan Littlejohn MD Unavailable Kiley Pemberton NP Primary Care Provider [phone] Reza Rose MD Unavailable [phone] Sunny Bazzi NP Unavailable Darnell Truong MD Unavailable [phone] Allergies Active Allergy Reactions Criticality Noted Date [...] Multiple joint pain 11/30/2022 Lumbar radiculopathy 11/30/2022 USP (current) use of opiate analgesic 11/05 Lumbar facet arthropathy 11/29/2022 Abnormal Pap smear of cervix 10/17/2022 Overview (10/17/2022): 12 years ago Therapeutic opioid induced constipation 10/26/20 DDD (degenerative disc disease), lumbar 01/23/20 19 Assessment & Plan (12/25/2023 4:43 PM FOSTER CARE SOCIAL WORKER): Patient does have chronic conditions that she has been on chronic pain medications. I discussed not being able to rx Hydrocodone. Patient's situation with pain management needs to improve, new referral placed for provider. I will rx Tramadol short term until she can establish with pain management/have her knee surgery. 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 I checked their [place] ROLL HANDLER sheet and database, and it was consistent with prescribed medications. Linda's esophagus with low grade dysplasia 08/2018 Overview (07/14/2018): Added automatically from request for surgery [id number] Assessment & Plan (10/09/2022 3:55 PM FOSTER CARE SOCIAL WORKER): Continues Omeprazole. Chest pain 05/13/2018 Colon cancer screening 09/06/2017 B12 deficiency 08/30/2017 Assessment & Plan (10/09/2022 3:54 PM FOSTER CARE SOCIAL WORKER): Patient was on B12 injections with prior [...] with vitamin-D such as Oscal or Caltrate ltpi-gaq-osavshh once daily for life. We will recheck her vitamin D levels in 16 weeks. High triglycerides 08/30/2017 Assessment & Plan (08/30/2017 5:32 PM CDT): Lipid panel reviewed in detail. Encouraged increased aerobic activity. Weight loss. Decrease caloric intake. Heart healthy diet. In addition, patient will start [place] 3 fish oil once daily. Will follow [...] hopes to avoid a trip in to [place]. Patient was encouraged to discuss this further with her primary care provider at her next scheduled visit. Chronic bilateral low back pain with right-sided sciatica 08/22/2017 Assessment & Plan (10/03/2023 11:01 AM FOSTER CARE SOCIAL WORKER): Establishing with new pain management 10/15/23. Assessment & Plan (10/18/2022 10:03 AM FOSTER CARE SOCIAL WORKER): Has not seen pain management since having to switch insurances, has scheduled appointment with Dr. Montana on 11/28/21. Patient was previously taking Jarreau for her pain from prior pain management but has not taken for about 2 months d/t insurance not covering her original pain management provider anymore. Patient's pain is not controlled, will rx Tramadol temporarily until she is able to get in with Pain Management on 11/28. Assessment & Plan (10/09/2022 3:56 PM FOSTER CARE SOCIAL WORKER): Pt has spinal simulator in place, needs new referral to pain management. Referral placed to Dr. Montana for [place] location. Type 2 diabetes mellitus wit hout complication, without long-term current use of insulin 08/22/2017 Assessment & Plan (10/03/2023 11:00 AM FOSTER CARE SOCIAL WORKER): A1c 5.9. diet controlled, continues focusing on diet/exercise. Assessment & Plan (02/21/2023 2:48 PM CDT): Diet controlled. No changes today. Assessment & Plan (10/09/2022 3:54 PM FOSTER CARE SOCIAL WORKER): Labs ordered Diet controlled. 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 Discussed sleep medicine again but she prefers to hold off and monitor for now. Denies snoring or apneic episodes. Pulmonary hypertension 03/05/2017 Restless legs syndrome (RLS) 03/05/2017 Assessment & Plan (10/09/2022 3:56 PM FOSTER CARE SOCIAL WORKER): Pt taking Gabapentin. 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 Overview (02/07/2017): HSV-2 infection Diarrhea 07/16/2010 Diastolic dysfunction 07/15/2010 Assessment & Plan (10/18/2022 9:58 AM FOSTER CARE SOCIAL WORKER): Has echo scheduled for 11/06/22 and appointment [...] Encounters Date Type Department Care Team Description 09/01/2025 Orders Only [facility] Health Information Management [address] [place] [address] Scanning, Provider 08/03/2025 Telephone [facility] Group Orthopedics and Sports Medicine [address] [address] Basia Lewis PA from Last 3 Months Immunizations Immunization Administration [...] (degenerative joint disease) Hyperlipidemia Coronary artery disease [place] 2008 Bipolar disorder Interstitial cystitis Pulmonary hypertension [...] drink = 0.6 oz pur e alcohol) [facility] Utilities Answer Date Recorded In the past 12 months has th e [employer], gas, oil, or water Interview [employer] threatened to shut off services in your [...] week 02/27/2024 How often do you attend [facility] or [facility] services? Never 02/27/2024 Do you belong to any clubs o r organizations such as mandaeism groups, unions, fraternal or athletic groups, or [...] place to sleep or slept in a prison (including now)? No 02/27/2024 Personal Safety Answer Date Recorded Have you ever been in or are you currently in a harmful physical or emotional relationship or is someone making you feel afraid or unsafe? Denies 08/19/2024 Comments No Sex and Gender Information Value Date Recorded Sex Assigned at Not on file Legal Sex Female 4:48 PM FOSTER CARE SOCIAL WORKER Gender Identity Female 10/13/2024 2:22 PM FOSTER CARE SOCIAL WORKER Sexual Orientation Not on file Occupation [...] Comments Blood Pressure 122/69 10/15/2024 10:23 AM FOSTER CARE SOCIAL WORKER Pulse 69 10/15/2024 10:23 AM FOSTER CARE SOCIAL WORKER Temperature 36.6 C (97.8 F) 08/19/2024 3:11 PM CDT Respiratory Rate 16 08/19/2024 3:11 PM CDT Oxygen Saturation 97% 08/19/2024 3:11 PM CDT Inhaled Oxygen Concentration - - Weight 77.1 kg (170 lb) 10/15/2024 10:23 AM FOSTER CARE SOCIAL WORKER Height 172.7 cm (5' 8) 10/15/2024 10:23 AM FOSTER CARE SOCIAL WORKER Body Mass Index 25.85 10/15/2024 10:23 AM FOSTER CARE SOCIAL WORKER Plan of Treatment Health Maintenance Due Date [...] overall activity Medical Devices Implanted Type Area Cylinder Handler Device Identifier Shelf Expiration Date Model / Serial / Lot Neurostimulator- 06/24/2019 Implanted:2018 by Edson Hung MD (Quantity not on file) Neurostimulator Back Medtronic Neuro [id number] / [id number] / Neurostimulator Lead-06/24/2019 Implanted:2018 by Edson Hung MD (Quantity not on file) Neurostimulator Back Medtronic Neuro [id number] / / [employer] Attune Cruciate Retain Cementless Knee Left 6 Component Femoral [id number] - [id number] Implanted:Qty: 1 on 02/25/2024 by Abdullahi Vidales MD at [facility] Left: Knee [employer] 01/01/2034 [id number] / / [id number] [employer] Attune Fb Tib Base Sz 5 Por [id number] - [id number] Implanted:Qty: 1 on 02/25/2024 by Abdullahi Vidales MD at [facility] Left: Knee [employer] 10/03/2024 [id number] / / [id number] [employer] Insert Tibial Knee Fixed Lm Posterior Stabilized Attune 5mm Size 6 Polyethylene [id number] - [id number] Implanted:Qty: 1 on 02/25/2024 by Abdullahi Vidales MD at [facility] Left: Knee [employer] 10/03/2031 [id number] / / [id number] [employer] Actis 115mm Collar Hip 10 12/14 High Offset Taper Stem Femoral [id number] - [id number] Implanted:Qty: 1 on 08/19/2024 by Darnell Truong MD at [facility] Left: Hip [employer] [id number] 03/03/2034 [id number] / / [id number] [employer] Articul/Oumar 36mm Cementless Hip +5mm /14 Taper Head Femoral Latex Free [id number] - [id number] Implanted:Qty: 1 on 08/19/2024 by Darnell Truong MD at [facility] Left: Hip [employer] [id number] 05/03/2029 [id number] / / [id number] [employer] [place] 54mm 36mm Hip Neutral Liner Acetabular Altrx Sterile Latex Free [id number] - [id number] Implanted:Qty: 1 on 08/19/2024 by Darnell Truong MD at [facility] Left: Hip [employer] [id number] 05/03/2029 [id number] / / [id number] [employer] [place] 54mm Sector Hip Shell Acetabular Gription Sterile Latex Free [id number] - [id number] Implanted:Qty: 1 on 08/19/2024 by Darnell Truong MD at [facility] Left: Hip [employer] [id number] 03/03/2034 [id number] / / [id number] [employer] [place] 6.5mm 25mm Acetabular Cancellous Screw Bone Sterile 1217-25-500 - [id number] Implanted:Qty: 1 on 08/19/2024 by Darnell Truong MD at [facility] Left: Hip [employer] [id number] 04/03/2034 0 / / [id number] [employer] [place] 6.5mm 35mm Acetabular Cancellous Screw Bone Sterile 1217-35-500 - [id number] Implanted:Qty: 1 on 08/19/2024 by Darnell Truong MD at [facility] Left: Hip [employer] [id number] 04/03/2034 0 / / [id number] Procedures Procedure Name Priority Date/Time Associated Diagnosis Comments SCAN - OTHER ORDERS 09/01/2025 EGFR Routine 07/22/2024 10:50 AM CDT Pre-operative exam HEMOGLOBIN A1C Routine 07/22/2024 10:50 AM CDT Pre-operative exam LIPID PANEL Routine 09/30/2023 8:04 AM FOSTER CARE SOCIAL WORKER Type 2 diabetes mellitus without complication, without long-term current use of insulin (HCC) ALBUMIN CREATININE RATIO, URINE Routine 09/30/2023 8:04 AM FOSTER CARE SOCIAL WORKER Type 2 diabetes mellitus without complication, without [...] Recently Relevant to Health Maintenance Results * SCAN - OTHER ORDERS (09/01/2025) us Provider Scanning Final Result * eGFR (07/22/2024 10:50 AM CDT) eGFR [...] ORDERABLES Fin al Result Performing Organization Address [facility] Co de Phone Number [facility]HELLE [facility] ([place]) [address] [place] [address] [place] [address] * (ABNORMAL) Hemoglobin A1c (07/22/2024 10:50 AM CDT) Hgb A1C 5.7(H) 4.0 - 5.6 % Estimated Average Glucose 117 mg/dL MICHELLE [facility] ([place]) Comment: The ADA recommends reporting an estimated Average Glucose (eAG) with all Hemoglobin A1c results using the equation derived from a study of 507 normal and diabetic adults. Minority populations were underrepresented and children were not included. (Diabetes Care 31:8584-2983, 2008). The eAG is not equivalent to a fasting glucose. Blood 07/22/2024 10:5 0 AM CDT 07/22/2024 11:05 AM CDT Darnell Truong MD LAB BLOOD ORDERABLES Fin al Result Performing Organization Address City/[facility]/ZIP Co de Phone Number MICHELLE [facility] ([place]) [address] [facility] [place] [address] * Albumin Creatinine Ratio, Urine (09/30/2023 8:04 AM FOSTER CARE SOCIAL WORKER) Albumin Ur <12.0 mg/L MICHELLE CRAVEN Comment: Interpretive Data No reference range established. Current interpretive data was last revised 2019. Creatinine Ur 23.0 mg/dL MICHELLE CRAVEN Comment: Interpretive Data No reference range established. Current interpretive data was last revised 2019. Albumin Creatinine Ratio, Ur See Comment 1 - 29 MICHELLE CRAVEN Comment:Unable to calculate Urine 09/30/2023 8:04 AM FOSTER CARE SOCIAL WORKER 09/30/2023 2:17 PM FOSTER CARE SOCIAL WORKER us Kiley Pemberton NP LAB URINE ORDERABLES Final Resul t MICHELLE CRAVEN [address] [address] Department [place] [address] * Lipid panel (09/30/2023 8:04 AM FOSTER CARE SOCIAL WORKER) Cholesterol 150 30 - 199 mg/dL MICHELLE Comment: Interpretive Data Ages < or = [...] 2 MICHELLE CRAVEN Blood 09/30/2023 8:04 AM FOSTER CARE SOCIAL WORKER 09/30/2023 2:17 PM FOSTER CARE SOCIAL WORKER Kiley Pemberton NP LAB BLOOD ORDERABLES Final Resul t MICHELLE CRAVEN [address] [address] Department [place] [address] * HM DIABETES EYE EXAM (09/25/2023) Historical Provider HEALTH [...] CDT) Hep C Ab Negative Negative MICHELLE Blood specimen (specimen) 08/22/2017 1:16 PM CDT 08/22/2017 7:36 PM CDT Jan Littlejohn MD LAB MICROBIOLOGY - GENER AL ORDERABLES Final Result Performing Organization Address City/[facility]/ZIP Co de Phone Number MICHELLE CRAVEN [address] [address] Department [place] [address] from Last 3 Months or Most Recently Relevant to Health Maintenance Insurance MEDICARE [facility] Address: [address] [address] [place] [address] [facility] ADVANTAGE CHOICE PPO Advance Directives For more information, please contact: [phone] * Full Code (Latest Code Status on [...] 10:04 PM 05/13/2018 9:18 PM Care Teams Repairer General Relationship Specialty Start Date End Date Kiley Pemberton NP [address] [facility] [place] [address] PCP - General Family Medicine 10/10/22 Jan Littlejohn MD [address] [facility] [place] [address] 01/22/19 GunReza lópez MD [address] [place] [address] Referring Physician Physical Medicine and Rehabilitation 01/23/24 Sunny Bazzi NP [address] [place] [address] [address] [place] [address] Nurse Practitioner Orthopedic Surgery 02/27/24 Darnell Truong MD [address] [place] [address] [address] [place] [address] Surgeon Orthopedic Surgery 08/19/24
--- OUTSIDE RECORDS SUMMARY | 2025-09-13 16:44 | XMS_ITS | Encounter Summary ---
Author Organization [facility] Healthcare Address [address] [place] [address] Care Team Providers Care Hedge Fund Manager Name Role Phone Guerita Cochran Primary Care Provider [phone] Jan Littlejohn MD Unavailable [phone] Guerita Cochran Primary Care Provider [phone] Miscellaneous, Not In File Primary Care Provider Unavailable Kiley Pemberton NP Primary Care Provider [phone] Reza Rose MD Unavailable [phone] Sunny Bazzi NP Unavailable [phone] Leni Lopez MA Unavailable [phone] Darnell Truong MD Unavailable [phone] Encounter Details Date Type Department Care Team (Late st Contact Info) Description 04/08/[address] [facility] [address] [place] [id number] Kishore Chin, RT Social History Tobacco Use Types Packs/Day Years Used Date Smoking Tobacco: Never Smokeless Tobacco: Never Alcohol Use Standard Drinks/Week Comments No 0 (1 standard drink = 0.6 oz pur e alcohol) PHQ-2 Answer Date Recorded PHQ-2 Score 0 06/26/2019 Comments No Sex and Gender Information Value Date Recorded Sex Assigned at Not on file Legal Sex Female 4:48 PM ARTIFICIAL TEETH INSPECTOR Gender Identity Female 10/13/2024 2:22 PM ARTIFICIAL TEETH INSPECTOR Sexual Orientation Not on file Occupation Industry [...] COVID: Suspected 09/28/2022 09/28/2022 09/28/2022 1:10 PM ARTIFICIAL TEETH INSPECTOR MRSA Comment:Dx. by Dermatology at [facility] 09/2023. 02/19/2024 02/19/2024 08/14/2024 9: 32 AM CDT documented as of this encounter Care Teams Hedge Fund Manager Relationship Specialty Start Date End Date Guerita Cochran PA [address] [place] [address] PCP - General 01/22/19 06/06/20 Guerita Cochran PA [address] [place] [address] PCP - General 06/07/20 11/27/21 Miscellaneous, Not In File PCP - General 11/28/21 10/09/22 Kiley Pemberton NP PCP - General Family Medicine 10/10/22 Jan Littlejohn MD [address] [facility] [place] [address] 01/22/19 Reza Rose MD [address] [place] [address] Referring Physician Physical Medicine and Rehabilitation 01/23/24 Sunny Bazzi NP [address] [facility] [address] [place] [address] Nurse Practitioner Orthopedic Surgery 02/27/24 Leni Lopez MA [address] [place] [address] [address] [place] [address] ACO Care Carton Lettering Machine Operator 03/27/24 03/30/24 Darnell Truong MD [address] [facility] [address] [place] [address] Surgeon Orthopedic Surgery 08/19/24 documented as of this encounter
--- OUTSIDE RECORDS SUMMARY | 2025-09-13 16:44 | XMS_ITS | Encounter Summary ---
Author Organization 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 [place] [address] Kalie Norwood, VEHICLE BODY BUILDER [address] [place] [address] documented as of this encounter Visit Diagnoses Not on filedocumented in this encounter Additional Health Concerns Assessment Noted Time PHQ-9 Depression Total Score: 0 10/23/20 19 3:13 PM METAL ROOFING MECHANIC documented as of this encounter Care Teams Assistant Production Manager Relationship Specialty Start Date End Date Iona Garner APNP [address] [place] [address] PCP - General NURSE PRACTITIONER 10/23/19 Kalyan Venegas MD [address] [facility] [address] [place] [id number] [place] [facility] Administrative Assistant CARDIOVASCULAR DISEASE 12/09/19 documented as of this encounter
--- OUTSIDE RECORDS SUMMARY | 2025-09-13 16:44 | XMS_ITS | Encounter Summary ---
Author Organization [facility] Healthcare Address [address] [place] [address] Care Team Providers Care Metal Baler Name Role Phone Guerita Cochran Primary Care Provider [phone] Jan Littlejohn MD Unavailable [phone] Guerita Cochran Primary Care Provider [phone] Miscellaneous, Not In File Primary Care Provider Unavailable Kiley Pemberton NP Primary Care Provider [phone] Reza Rose MD Unavailable [phone] Sunny Bazzi NP Unavailable [phone] Leni Lopez MA Unavailable [phone] Darnell Truong MD Unavailable [phone] Encounter Details Date Type Department Care Team (Late st Contact Info) Description 03/22/2020 Telephone [facility] [address] [place] [id number] Kalie Triplett, BILLY Social History Tobacco Use Types Packs/Day Years Used Date Smoking Tobacco: Never Smokeless Tobacco: Never Alcohol Use Standard Drinks/Week Comments No 0 (1 standard drink = 0.6 oz pur e alcohol) PHQ-2 Answer Date Recorded PHQ-2 Score 0 06/26/2019 Comments No Sex and Gender Information Value Date Recorded Sex Assigned at Not on file Legal Sex Female 4:48 PM WEBSPHERE CONSULTANT Gender Identity Female 10/13/2024 2:22 PM WEBSPHERE CONSULTANT Sexual Orientation Not on file Occupation Industry [...] COVID: Suspected 09/28/2022 09/28/2022 09/28/2022 1:10 PM WEBSPHERE CONSULTANT MRSA Comment:Dx. by Dermatology at [facility] 09/2023. 02/19/2024 02/19/2024 08/14/2024 9: 32 AM CDT documented as of this encounter Care Teams Metal Baler Relationship Specialty Start Date End Date Guerita Cochran PA [address] [place] [address] PCP - General 01/22/19 06/06/20 Guerita Cochran PA [address] [place] [address] PCP - General 06/07/20 11/27/21 Miscellaneous, Not In File PCP - General 11/28/21 10/09/22 Kiley Pemberton NP PCP - General Family Medicine 10/10/22 Jan Littlejohn MD [address] [facility] [place] [address] 01/22/19 Reza Rose MD [address] [place] [address] Referring Physician Physical Medicine and Rehabilitation 01/23/24 Sunny Bazzi NP [address] [facility] [address] [place] [address] Nurse Practitioner Orthopedic Surgery 02/27/24 Leni Lopez, PEDRO [address] [place] [address] [address] [place] [address] ACO Care Combat Engineer 03/27/24 03/30/24 Darnell Truong MD [address] [place] [address] [address] [place] [address] Surgeon Orthopedic Surgery 08/19/24 documented as of this encounter
--- NOTE | 2025-09-13 16:48 | ECG_ITS ---
Test Date: 2025-09-13 17:12:18 Measurements Intervals [place] Rate: 76 P: 53 MO: 171 QRS: 10 QRSD: 75 T: 22 QT: 363 QTc: 410 Interpretive Statements SINUS RHYTHM LOW QRS VOLTAGE IN PRECORDIAL LEADS [QRS DEFLECTION < 1.0 mV IN CHEST LEADS] No previous ECG available for comparison Electronically Signed On 09-14-2025 17:33:10 TURBO GENERATOR OILER by Marifer Denson M.D.
--- NOTE | 2025-09-13 16:49 | ED_ITS ---
HPI - Neuro Symptoms/Deficit General Chief Complaint: Suspected CVA Stated Complaint: I think I had a stoke 30 minutes Time Seen by Provider: 09/13/25 16:47 Source: patient Mode of arrival: ambulatory Limitations: no limitations History of Present Illness HPI Narrative: Patient presents with concern for a stroke. She has been having a variety of symptoms over the past several months which is being worked up by Darlene in Dr Salmon's office including a variety of labs. She is pending an MRI at [facility] 09/22 (at that location as MRI must be compatable with her spinal stimulator). LKW 1610. Not on anticoagulation. She reports an intense headache with blurred vision , described as bubbly but not diplopia. She reports her left arm feels strangely and she had near syncope, having to catch herself on the counter. She feels that her speech is different. Related Data Home Medications ?Medication ?Instructions ?Recorded ?Confirmed ?Last Taken ?Type gabapentin 300 mg capsule 300 mg PO TID 05/29/2108/2804/10/23 History diclofenac sodium 1 % topical gel 4 g topical QID PRN Pain 04/12/23 08/28/25 Unknown History escitalopram oxalate 10 mg tablet 10 mg PO DAILY 04/1208/28/25 04/10/23 History furosemide 20 mg tablet 20 mg PO BID PRN swelling 08/28/25 Unknown History hydroxyzine pamoate 25 mg capsule 25 mg PO DAILY PRN A nxiety 04/12/23 08/28/25 Unknown History omeprazole 20 mg capsule,delayed 20 mg PO DAILY PRN In digestion 04/12/23 08/28/25 Unknown History release Allergies Allergy/AdvReac Type Severity Reaction Status Date / Time latex Allergy Intermediate Hives Verified 08/27/25 08:15 NSAIDS (Non-Steroidal AdvReac Severe Other Verified 08/27/25 08:15 Anti-Inflamma PMFSH Past Medical History Medical History Degenerative disc disease Osteoarthritis Rheumatoid arthritis Gastroesophageal reflux disease Supraventricular tachycardia Status post ablation in 2008. Polycystic ovarian syndrome Deep vein thrombosis of left lower extremity Chronic back pain Depression with anxiety Barretts esophagus Bipolar disorder Coronary artery disease Patient stated that she had minimal blockages and was treated medically. She sees Dr. Venegas. Cardiac catheterization in [address] Da Silva showed no coronary disease and normal LV function. Spinal stenosis Surgical History Surgical History History of tonsillectomy History of appendectomy History of cholecystectomy History of gastric bypass History of oophorectomy History of tubal ligation History of cardiac radiofrequency ablation For supraventricular tachycardia. Status post insertion of spinal cord stimulator History of cardiac catheterization She was told that she has minimal blockages. History of esophageal dilatation Family History Family History Mother Cerebrovascular accident Atrial fibrillation Father Lymphoma Skin cancer (melanoma) AD (Alzheimer's disease) Sibling No problems noted. Social History Social History Social History: Surrogate medical decision maker: Darnell Chu, spouse. Code status: Full code. Smoking status: Never smoker Alcohol intake: never Substance use: never Lack of Transportation: No Lack of Food: Never True Current Housing: I Have Housing Concerned About Future Housing: No Difficulty Paying Gas/Electric Bills: No Difficulty Paying for Meds: No Currently Unemployed: No Education: Bachelor's Degree Difficulty w/ Childcare or Family Care: No Additional living arrangements comments: Lives in [place]. Has 3 children. 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 Spiritual care concerns: No Exam 2 Const: General: cooperative, healthy appearing, comfortable, well developed, alert, awake, Physically active, average body habitus and well nourished; No combative, confusion, diaphoretic, intoxicated appearing, lethargic or patient obtunded Nutritional Appearance: average body habitus O rientation/consciousness: patient oriented x3 Limitations: no limitations HENMT: Head: normal to inspection, normocephalic and atraumatic Ears: h earing grossly normal bilaterally Face and sinus: normal facial exam (no asymetry/loss of nasolabial fold) Eyes: General: appearance normal, both eyes and all related structures A lignment and Position: alignment normal EOM: EOMs intact bilaterally O ther: visual sarmiento intact Neck: Neck: normal visual inspection and no meningeal signs Resp: Effort & Inspection: normal respiratory effort, able to speak in complete sentences and no audible wheezes Cardio: Rate: regular rate, not bradycardic and not tachycardic Skin: General skin exam: normal color, no rashes or lesions noted and no ecchymosis Neuro: General: moves all extremities and no focal motor deficits Cranial nerves: Yes Nystagmus not present, Yes facial symmetry and Yes Normal hearing present Cognition (Neuro): normal cognition Speech: normal speech, No dysarthria, No Expressive aphasia present and No Receptive aphasia present M otor exam (neuro): No tremor noted, No asterixis and Other motor observations present (no motor drift x4) Sensory Exam: normal sensation Other: no ataxia Extrem: General: normal to inspection and full ROM Psych: Mental Status: mental status grossly normal Affect: normal affect Attitude: cooperative Thought process: Normal thought process present Course Vital Signs Vital signs: Vital Signs Temperature 98.0 F 09/13/25 16:57 Pulse Rate 81 09/13/25 16:57 Respiratory Rate 19 09/13/25 16:57 Blood Pressure 146/64 H 09/13/25 16:57 Pulse Oximetry 95 09/13/25 16:57 Oxygen Delivery Room Air 09/13/25 16:57 Temperature 98.0 F 09/13/25 16:57 Pulse Rate 78 09/13/25 19:41 Respiratory Rate 16 09/13/25 19:41 Blood Pressure 118/50 L 09/13/25 19:41 Pulse Oximetry 98 09/13/25 19:41 Oxygen Delivery Room Air 09/13/25 16:57 MDM - Neuro Symptoms/Deficit MDM Narrative Medical decision making narrative: This is a 75 year old female who presents to the emergency department with concern for possible stroke. Last known well is 1610. The patient is protecting their airway which is patent. An EKG will be performed. Accu-Chek was 116mg/dL. NIHSS was evaluated per below. The patient was transported immediately to CT scan per stroke protocol for evaluation of acute intracranial bleed. In the ED she is afebrile with acceptable VS, only mild hypertension. NIHSS Level Of consciousness: 0 Month and age:0 Follows commands: 0 Gaze palsy: 0 Visual sarmiento:0 Facial palsy: 0 Left arm motor drift:0 Right arm motor drift: 0 Left leg motor drift:0 Right leg motor drift: 0 Limb ataxia:0 Sensation:0 Aphasia: 0 Dysarthria: 0 Extinction: 0 Total: 0 DIFFERENTIAL DIAGNOSES Considered Stroke (CVA / TIA) mimics including but not limited to:(ocular) migraines, hypoglycemia, seizures/Jamarcus's paralysis, sepsis/severe infections in patients with prior strokes (e.g. recrudescence), syncope, brain masses, transient global amnesia, panic attack/hyperventilation, and conversion disorders. CT per stroke protocol shows no acute intracranial hemorrhage (there was a delay in radiologist notifying me as there had been miscommunication about stroke protocol). CTA had not been performed at the same time, again, the misunderstanding is unclear. Patient has comorbidities that add complexity management. Namely, currently being worked up for many of these symptoms occuring in isolation. Pending MRI at [facility] (spinal stimulator compatable MRI capability). Management is discussed with Dr Hansen, neurology who confirms CTA needs to be performed but MRI can likely be performed outpatient as already scheduled. Recommends patient be on antiplatelet (aspirin + Plavix) and statin therapy, e.g. Lipitor. Labs including troponin unremarkable. Normocytic anemia stable from previous. Her symptoms may represent ocular migraine and I strongly suspect this as she describes her blurred vision as bubbly and with aura. She continues to have a headache after receiving 1000 mg acetaminophen. Once CTA is back, headache cocktail with combination IV fluids ketorolac, Compazine, and diphenhydramine is ordered. 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 Visual acuity 20/100 and 20/70. Wears glasses and this is concerning if this was performed while wearing these glasses. UDS positive for cannabinoids. Patient reassessed at 7:05 p.m. reports headache is improving although still present. Will add magnesium. Patient reassessed at 8:25 p.m.. She reports her headache is much better. Discussed 1 time dose dexamethasone to reduce the chance of rebound/bounce-back headache. She is in agreement and stable for discharge. Will benefit from keeping upcoming MRI appointment. Advised follow up with neurology. Lab Data Attestation: I reviewed the patient's lab results. Lab results narrative: UA unremarkable 09/13/25 17:11 09/13/25 17:11 Labs: Lab Results 09/13/25 09/13/25 09/13/25 Range/Units 16:44 17:11 18:28 WBC 7.1 (4.5-10.0) K/mm3 RBC 3.56 L (4.2-5.4) M/mm3 Hgb 9.5 L (12.0-15.0) g/dL Hct 30.2 L (37.0-47.0) % MCV 84.8 (80-100) fl MCH 26.7 (26-34) pg MCHC 31.5 L (32-36) g/dl RDW 17.6 H (11.5-14.5) % Plt Count 262 (150-375) k/mm3 MPV 12.3 H (7.4-10.4) fl Immature Gran % (Auto) 0.1 (0-0.5) % Neut % (Auto) 45.9 (45.5-73.1) % Lymph % (Auto) 39.4 (18.3-44.2) % Dale % (Auto) 10.5 H (2.6-8.5) % Eos % (Auto) 2.8 (0-4.4) % Baso % (Auto) 1.3 H (0.2-1.2) % Lymph # (Auto) 2.78 (0.9-3.2) K/mm3 Dale # (Auto) 0.7 H (0.1-0.6) K/mm3 Eos # (Auto) 0.2 (0-0.3) K/mm3 Baso # (Auto) 0.1 (0.0-0.1) K/mm3 Abs Immat Gran (auto) 0.01 (0.00-0.031) K/mm3 Absolute Neuts (auto) 3.2 (1.3-6.7) K/mm3 Absolute Nucleated RBC 0.000 (0.0-0.012) K/mm3 Nucleated RBC % 0.0 (0.0-0.2) % PT 13.6 (11.1-14.7) Seconds INR 1.0 APTT 26.4 (22.3-36.8) Seconds Sodium 137 (137-145) mmol/L Potassium 4.0 (3.4-5.0) mmol/L Chloride 103 (98-107) mmol/L Carbon Dioxide 26 (22-30) mmol/L Anion Gap 8 (4-12) mmol/L BUN 15 (7-17) mg/dL Creatinine 0.75 (0.7-1.0) mg/dL Estim Creat Clear Calc 58 ml/min Estimated GFR > 60 (59 - ) Glucose 106 (65-110) mg/dL POC Capillary Glucose 116 H (65-105) mg/dl Calcium 8.7 (8.4-10.2) mg/dL Magnesium 1.9 (1.6-2.3) mg/dL Total Bilirubin 0.4 (0.2-1.3) mg/dL AST 23 (14-36) U/L ALT 12 (6-35) U/L Alkaline Phosphatase 100 (38-126) U/L Troponin I < 0.012 (0.000-0.034) ng/mL Total Protein 7.5 (6.3-8.2) g/dL Albumin 4.2 (3.5-5.1) g/dL Urine Color Yellow (Yellow) Urine Appearance Clear (Clear) Urine pH 5.5 (5.0-9.0) Ur Specific Harmony 1.014 (1.001-1.035) Urine Protein Negative (Negative) mg/dL Urine Glucose (UA) Negative (Negative) mg/dL Urine Ketones Negative (Negative) mg/dL Ur Blood (Man) Negative (Negative) Urine Nitrate Negative (Negative) Urine Bilirubin Negative (Negative) Urine Urobilinogen 0.2 (<2.0) mg/dL Leukocyte Esterase Rfl Negative (Negative) SURYA/UL Urine Opiates Screen Negative (Negative) Urine Methadone Screen Negative (Negative) Ur Barbiturates Screen Negative (Negative) Ur Phencyclidine Scrn Negative (Negative) Ur Amphetamine Screen Negative (Negative) U Benzodiazepines Scrn Negative (Negative) Urine Cocaine Screen Negative (Negative) U Cannabinoids Screen Positive A (Negative) Ethyl Alcohol < 10 (<10) mg/dL Blood Type O Positive Antibody Screen Negative Imaging Data Attestation: I personally reviewed and interpreted this imaging study as follows: My impression: Negative for intracranial hemrrhage on my independent interpretation of non contrast head CT. Radiologist's impression: Impressions Head CT 09/13/25 17:00 Impression: 1.No acute intracranial abnormality. Chest X-Ray 11/10/25 17:27 IMPRESSION: No acute pulmonary findings. Head/Neck CTA 09/13/25 18:29 IMPRESSION: No hemodynamically significant stenosis is noted of the cervical and intracranial arterial vasculature. ECG Data EKG #1: Attestation: I personally reviewed and interpreted this ECG as follows: ECG completion date: 09/13/25 ECG completion time: 17:12 Interpretation: Normal sinus rhythm at a rate of 76 beats per minute. IN interval 171. QRS 75. QT/QTC 363/410 R-wave progression across the precordial leads. T-wave inversion 3 but otherwise upright in contiguous inferior leads. No other T-wave inversions. Discharge Plan Discharge Clinical Impression: Headache, Normocytic anemia, Uses marijuana Patient Disposition: Home Condition: Stable Instructions: Antibiotic Form, Acute Headache (DC), Anemia (ED), Ocular Migraine (ED) Additional Instructions: As we discussed, you had a reassuring workup in her symptoms and likely might represent an migraine however Keep your upcoming MRI appoinment through [facility]. A neurologist is listed below for follow up. He recommended you be on dual antiplatelet therapy (aspirin + Plavix) in addition to a statin for prevention/risk reduction of a stroke. Patient Language: Malagasy Prescriptions: New aspirin 81 mg capsule 81 mg PO DAILY Qty: 30 0RF atorvastatin [Lipitor] 10 mg tablet 10 mg PO DAILY Qty: 30 0RF clopidogrel [Plavix] 75 mg tablet 75 mg PO DAILY Qty: 30 0RF No Action gabapentin 300 mg capsule 300 mg PO TID furosemide 20 mg tablet 20 mg PO BID PRN (Reason: swelling) hydroxyzine pamoate 25 mg capsule 25 mg PO DAILY PRN (Reason: Anxiety) escitalopram oxalate 10 mg tablet 10 mg PO DAILY diclofenac sodium 1 % gel 4 g TOPICAL QID PRN (Reason: Pain) Rx Instructions: apply to bilateral knees omeprazole 20 mg capsule,delayed release(DR/EC) 20 mg PO DAILY PRN (Reason: Indigestion) methylprednisolone [Medrol (Puma)] 4 mg tablets,dose pack 4 mg PO DAILY Qty: 21 0RF tizanidine 2 mg capsule See Rx Instructions .ROUTE .COMPLEX Qty: 30 0RF Dose Instruction: TAKE 1 CAPSULE BY MOUTH THREE TIMES DAILY NEEDED FOR MUSCLE SPASM Rx Instructions: TAKE 1 CAPSULE BY MOUTH THREE TIMES DAILY NEEDED FOR MUSCLE SPASM Follow-up/Referrals: Ibis Hansen MD [Physician, Neurology] Keke Gudino APRN [Primary Care Provider, Internal Medicine] Time of Disposition: 20:33
[2025-09-13 17:17] LABS: Hematocrit 30.2 % (37.0-47.0); Hemoglobin 9.5 g/dL (12.0-15.0); Immature Granulocyte Percent A 0.1 % (0-0.5); Lymphocytes Absolute Auto 2.78 K/mm3 (0.9-3.2); Mean Corpuscular HGB Conc 31.5 g/dl (32-36); Mean Corpuscular Hemoglobin 26.7 pg (26-34); Mean Corpuscular Volume 84.8 fl (80-100); Nucleated Red Blood Cells Absolute Auto 0.000 K/mm3 (0.0-0.012); Nucleated Red Blood Cells Perc 0.0 % (0.0-0.2); Platelet Count Result 262 k/mm3 (150-375); Red Blood Count 3.56 M/mm3 (4.2-5.4); White Blood Count 7.1 K/mm3 (4.5-10.0)
[2025-09-13 17:27] LABS: INR 1.0; Prothrombin Time 13.6 Seconds (11.1-14.7)
[2025-09-13 17:28] LABS: Partial Thromboplastin Time 26.4 Seconds (22.3-36.8)
[2025-09-13 17:29] LABS: Alanine Aminotransferase 12 U/L (6-35); Albumin Level 4.2 g/dL (3.5-5.1); Alkaline Phosphatase 100 U/L (38-126); Anion Gap 8 mmol/L (4-12); Aspartate Amino Transferase 23 U/L (14-36); Bilirubin,Total 0.4 mg/dL (0.2-1.3); Blood Urea Nitrogen 15 mg/dL (7-17); Calcium 8.7 mg/dL (8.4-10.2); Carbon Dioxide 26 mmol/L (22-30); Chloride 103 mmol/L (98-107); Estimated CRCL calculation 58 ml/min; Estimated Glomerular Filt Rate > 60; Glucose 106 mg/dL (65-110); Potassium 4.0 mmol/L (3.4-5.0); Sodium 137 mmol/L (137-145); Total Protein 7.5 g/dL (6.3-8.2)
--- OUTSIDE RECORDS SUMMARY | 2025-09-13 17:33 | XMS_ITS | Clinical Summary ---
Author Organization [facility] Address [address] [place] [address] Care Team Providers Care Estimator Project Manager Name Role Phone Iona Garner Primary Care Provider Kalyan Venegas MD Unavailable [phone] Allergies Active Allergy Reactions Criticality Noted Date [...] Overview: Added automatically from request for surgery [id number] B12 deficiency 08/30/2017 Overview (09/28/2019): Last Assessment & Plan: Patient will begin oral B12 1000 mcg tablet once daily. Repeat B12 level scheduled with routine lab in November. High triglycerides 08/30/2017 Overview (09/28/2019): Last Assessment & Plan: Lipid panel reviewed in detail. Encouraged increased aerobic activity. Weight loss. Decrease caloric intake. Heart healthy diet. In addition, patient will start [place] 3 fish oil once daily. Will follow up with primary care provider for routine blood work. Hypovitaminosis D 08/30/2017 Overview (09/28/2019): Last Assessment & Plan: Patient will take 5000 units of vitamin-D daily for the next 90 days. She will take calcium with vitamin-D such as Oscal or Caltrate [id number] once daily for life. 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 [facility] [address] [place] [address] Kalie Norwood, ADILSON [address] [facility] [address] [place] [address] Health Maintenance Due Date Last Done Comments Colorectal Cancer Screening Colonoscopy (10 Years) 1950 EGD-Linda's Surveillance 1950 Kidney Health Evaluation 1950 Annual Medicare Wellness Visit 02/08/2017 Pneumococcal Vaccine: 50+ Years (2 of 2 - PPSV23, PCV20, or PCV21) 10/25/2017 08/30/2017 Lipid Panel 11/20/2020 11/20/2019 Mammogram Screening 11/12/2021 11/12/2019, 8 Diabetes: Retinopathy Eye Exam 07/18/2022 07/18/2020, 12/28/2019 PHQ-2 (Physician [place]) 11/04/2024 Hemoglobin A1C 01/19/2025 07/22/2024, 09/05, 11/06/2022, [...] GENERIC (SCAN ORDER) Routine 11/27/2019 9:30 AM HEALTH OUTREACH WORKER HEMOGLOBIN, GLYCOSYLATED Routine 11/20/2019 9:52 AM HEALTH OUTREACH WORKER Type 2 diabetes mellitus without complication, without long-term current use of insulin LIPID PANEL Routine 11/20/2019 9:23 AM HEALTH OUTREACH WORKER High triglycerides MAMMOGRAM GENERIC (SCAN ORDER) Routine 11/12/2019 8:39 AM HEALTH OUTREACH WORKER from Last 3 Months or Most Recently Relevant to Health Maintenance Results * DIABETIC RETINOPATHY EXAM (07/18/2020) us Documents Scanned SCANNING Final Result Performing Organization Address City/[facility]/ZIP Co de Phone Number [facility] ON[facility] * BONE DENSITY (11/27/2019 9:30 AM HEALTH OUTREACH WORKER) Anatomical Region Laterality Modality Other us Documents Scanned SCANNING Edited Result - Final * HEMOGLOBIN, GLYCOSYLATED (11/20/2019 9:52 AM HEALTH OUTREACH WORKER) HGB A1C 5.0 <5.7 % of total [...] diagnosis of diabetes in children. According to [place] Diabetes Association (ADA) guidelines, hemoglobin A1c <7.0% represents optimal control in non- diabetic patients. Different metrics may apply to specific patient populations. Standards of Medical Care in Diabetes(ADA). 11/20/2019 9:52 AM HEALTH OUTREACH WORKER 11/21/2019 6:27 AM HEALTH OUTREACH WORKER Narrative Resulting Agency Comment Performing Organization Information: Site ID: [id number] Name: [facility] Address: [address] [place] [address] Director: Edson Servin D.O., MPH us [facility] Final Resul t [place]abbits ORDERS * LIPID PANEL (11/20/2019 9:23 AM HEALTH OUTREACH WORKER) CHOLESTEROL 162 <200 mg/dL [facility] - [...] LDL-C. Sj SS et al. TAZ. 2013;310(19): 1046-5321 (http://education.Lexara/faq/WZK320) CHOL/HDL RATIO 2.2 <5.0 (calc) [facility] [place] ORDERS NON HDL CHOLESTEROL 89 <130 mg/dL (calc) [facility] [place] ORDERS Comment: For patients with diabetes plus 1 major ASCVD risk factor, treating to a non-HDL-C goal of <100 mg/dL (LDL-C of <70 mg/dL) is considered a therapeutic option. 11/20/2019 9:23 AM HEALTH OUTREACH WORKER 11/21/2019 6:28 AM HEALTH OUTREACH WORKER Narrative Resulting Agency Comment Performing Organization Information: Site ID: [id number] Name: [facility] Address: [address] [place] [address] [place] [address] Director: Edson Servin D.O. MPH [facility] Final Resul t [facility] [place] ORDERS * MAMMOGRAM (11/12/2019 8:39 AM HEALTH OUTREACH WORKER) Anatomical Region Laterality Modality Other us Documents Scanned SCANNING Edited Result - Final from Last 3 Months or Most Recently Relevant to Health Maintenance Insurance MEDICARE AETNA MEDICARE Care Teams Estimator Project Manager Relationship Specialty Start Date End Date Iona Garner APNP [address] [place] [address] [id number] PCP - General NURSE PRACTITIONER 10/23/19 Kalyan Venegas MD [address] [facility] [address] [place] [address] [place] Knitting Machine Mechanic CARDIOVASCULAR DISEASE 12/09/19
--- OUTSIDE RECORDS SUMMARY | 2025-09-13 17:33 | XMS_ITS | Encounter Summary ---
Author Organization [facility] Healthcare Address [address] [place] [address] Care Team Providers Care Superintendent Car Construction Name Role Phone Guerita Cochran Primary Care Provider [phone] Jan Littlejohn MD Unavailable [phone] Guerita Cochran Primary Care Provider [phone] Miscellaneous, Not In File Primary Care Provider Unavailable Kiley Pemberton NP Primary Care Provider [phone] Reza Rose MD Unavailable [phone] Sunny Bazzi NP Unavailable [phone] Leni Lopez MA Unavailable [phone] Darnell Turong MD Unavailable [phone] Encounter Details Date Type Department Care Team (Late st Contact Info) Description 04/08/2020 Telephone [facility] [address] [place] [address] Kishore Chin, RT Social History Tobacco Use Types Packs/Day Years Used Date Smoking Tobacco: Never Smokeless Tobacco: Never Alcohol Use Standard Drinks/Week Comments No 0 (1 standard drink = 0.6 oz pur e alcohol) PHQ-2 Answer Date Recorded PHQ-2 Score 0 06/26/2019 Comments No Sex and Gender Information Value Date Recorded Sex Assigned at Not on file Legal Sex Female 4:48 PM TOOL POLISHER Gender Identity Female 10/13/2024 2:22 PM TOOL POLISHER Sexual Orientation Not on file Occupation Industry [...] COVID: Suspected 09/28/2022 09/28/2022 09/28/2022 1:10 PM TOOL POLISHER MRSA Comment:Dx. by Dermatology at [facility] 09/2023. 02/19/2024 02/19/2024 08/14/2024 9: 32 AM CDT documented as of this encounter Care Teams Superintendent Car Construction Relationship Specialty Start Date End Date Guerita Cochran PA [address] [place] [address] PCP - General 01/22/19 06/06/20 Guerita Cochran PA [address] [place] [address] PCP - General 06/07/20 11/27/21 Miscellaneous, Not In File PCP - General 11/28/21 10/09/22 Kiley Pemberton NP PCP - General Family Medicine 10/10/22 Jan Littlejohn MD [address] [facility] [place] [address] 01/22/19 Reza Rose MD [address] [place] [address] Referring Physician Physical Medicine and Rehabilitation 01/23/24 Sunny Bazzi NP [address] [facility] [address] [place] [address] Nurse Practitioner Orthopedic Surgery 02/27/24 Leni Lopez MA [address] [place] [address] [address] [place] [address] ACO Care Public Health Nurse 03/27/24 03/30/24 Darnell Truong MD [address] [facility] [address] [place] [address] Surgeon Orthopedic Surgery 08/19/24 documented as of this encounter
--- OUTSIDE RECORDS SUMMARY | 2025-09-13 17:33 | XMS_ITS | Encounter Summary ---
Author Organization [facility] Healthcare Address [address] [place] [address] Care Team Providers Care Photonics Engineering Technician Name Role Phone Guerita Cochran Primary Care Provider [phone] Jan Littlejohn MD Unavailable [phone] Guerita Cochran Primary Care Provider [phone] Miscellaneous, Not In File Primary Care Provider Unavailable Kiley Pemberton NP Primary Care Provider [phone] Reza Rose MD Unavailable [phone] Sunny Bazzi NP Unavailable [phone] Leni Lopez MA Unavailable [phone] Darnell Truong MD Unavailable [phone] Encounter Details Date Type Department Care Team (Late st Contact Info) Description 03/22/2020 Telephone [facility] [address] [place] [id number] Kalie Triplett, BILLY Social History Tobacco Use Types Packs/Day Years Used Date Smoking Tobacco: Never Smokeless Tobacco: Never Alcohol Use Standard Drinks/Week Comments No 0 (1 standard drink = 0.6 oz pur e alcohol) PHQ-2 Answer Date Recorded PHQ-2 Score 0 06/26/2019 Comments No Sex and Gender Information Value Date Recorded Sex Assigned at Not on file Legal Sex Female 4:48 PM MOLD SHEET CLEANER Gender Identity Female 10/13/2024 2:22 PM MOLD SHEET CLEANER Sexual Orientation Not on file Occupation Industry [...] COVID: Suspected 09/28/2022 09/28/2022 09/28/2022 1:10 PM MOLD SHEET CLEANER MRSA Comment:Dx. by Dermatology at [facility] 09/2023. 02/19/2024 02/19/2024 08/14/2024 9: 32 AM CDT documented as of this encounter Care Teams Photonics Engineering Technician Relationship Specialty Start Date End Date Guerita Cochran PA [address] [place] [address] PCP - General 01/22/19 06/06/20 Guerita Cochran PA [address] [place] [address] PCP - General 06/07/20 11/27/21 Miscellaneous, Not In File PCP - General 11/28/21 10/09/22 Kiley Pemberton NP PCP - General Family Medicine 10/10/22 Jan Littlejohn MD [address] [facility] [place] [address] 01/22/19 Reza Rose MD [address] [place] [address] Referring Physician Physical Medicine and Rehabilitation 01/23/24 Sunny Bazzi NP [address] [facility] [address] [place] [address] Nurse Practitioner Orthopedic Surgery 02/27/24 Leni Lopez, PEDRO [address] [place] [address] [address] [place] [address] ACO Care Warehouse Supervisor 03/27/24 03/30/24 Darnell Truong MD [address] [place] [address] [address] [place] [address] Surgeon Orthopedic Surgery 08/19/24 documented as of this encounter
--- OUTSIDE RECORDS SUMMARY | 2025-09-13 17:33 | XMS_ITS | Encounter Summary ---
Author Organization [facility] Address [address] [place] [address] Phone Care Team Providers Care Physical Aerodynamicist Name Role Phone Guerita Cochran Primary Care Provider [phone] Jan Littlejohn MD Unavailable [phone] Guerita Cochran Primary Care Provider [phone] Miscellaneous, Not In File Primary Care Provider Unavailable Kiley Pemberton NP Primary Care Provider [phone] Reza Rose MD Unavailable [phone] Sunny Bazzi NP Unavailable [phone] Leni Lopez MA Unavailable [phone] Darnell Truong MD Unavailable [phone] Encounter Details Date Type Department Care Team [...] on file Legal Sex Female 4:48 PM SCOURING TRAIN OPERATOR Gender Identity Female 10/13/2024 2:22 PM SCOURING TRAIN OPERATOR Sexual Orientation Not on file Occupation [...] COVID: Suspected 09/28/2022 09/28/2022 09/28/2022 1:10 PM SCOURING TRAIN OPERATOR MRSA Comment:Dx. by Dermatology at [facility] 09/2023. 02/19/2024 02/19/2024 08/14/2024 9: 32 AM CDT documented as of this encounter Care Teams Physical Aerodynamicist Relationship Specialty Start Date End Date Guerita Cochran PA [address] [place] [address] PCP - General 01/22/19 06/06/20 Guerita Cochran PA [address] [place] [address] PCP - General 06/07/20 11/27/21 Miscellaneous, Not In File PCP - General 11/28/21 10/09/22 Kiley Pemberton NP PCP - General Family Medicine 10/10/22 Jan Littlejohn MD [address] [facility] [place] [address] 01/22/19 Reza Rose MD [address] [place] [address] Referring Physician Physical Medicine and Rehabilitation 01/23/24 Sunny Bazzi NP [address] [place] [address] [address] [place] [address] Nurse Practitioner Orthopedic Surgery 02/27/24 Leni Lopez MA [address] [place] [address] [address] [place] [address] ACO Care Neurosurgical Physician Assistant 03/27/24 03/30/24 Darnell Truong MD [address] [place] [address] [address] [place] [address] Surgeon Orthopedic Surgery 08/19/24 documented as of this encounter
--- OUTSIDE RECORDS SUMMARY | 2025-09-13 17:33 | XMS_ITS | Clinical Summary ---
Author Organization [facility] Address [address] [place] [address] Phone Care Team Providers Care Cotton Acreage Measurer Name Role Phone Unavailable Primary Care Provider [...] to excess calories 2016 Pulmonary hypertension 03/05/2017 Lnida's esophagus with high grade dysplasia Bipolar disorder, [...] Comments Blood Pressure 118/58 10/05/2021 3:35 PM FORMING MILL OPERATOR Pulse 75 10/05/2021 3:35 PM FORMING MILL OPERATOR Temperature 36.2 C (97.2 F) 10/05/2021 3:35 PM FORMING MILL OPERATOR Respiratory Rate 16 10/05/2021 3:35 PM FORMING MILL OPERATOR Oxygen Saturation 99% 10/05/2021 3:35 PM FORMING MILL OPERATOR Inhaled Oxygen Concentration - - Weight 74.4 kg (164 lb) 10/05/2021 3:35 PM FORMING MILL OPERATOR Height 172.7 cm (5' 8) 07/15/2018 9:58 [...]
--- OUTSIDE RECORDS SUMMARY | 2025-09-13 17:33 | XMS_ITS | Encounter Summary ---
Author Organization [facility] Care Team Providers Care Workforce Development Vice President Name Role Phone Jan Littlejohn MD Primary Care Provider + Guerita Cochran Primary Care Provider [phone] Jan Littlejohn MD Unavailable [phone] Guerita Cochran Primary Care Provider [phone] Miscellaneous, Not In File Primary Care Provider Unavailable Kiley Pemberton NP Primary Care Provider [phone] Reza Rose MD Unavailable [phone] Sunny Bazzi NP Unavailable [phone] Leni Lopez MA Unavailable [phone] Darnell Truong MD Unavailable [phone] Encounter Details Date Type Department Care Team (Latest Contact Info) Description 12/13/2018 Orders Only [facility] CLINCONV Provider, MD Amarjit [address] [place] [address] Social History Tobacco Use Types Packs/Day Years Used Date Smoking Tobacco: Never Smokeless Tobacco: Never Alcohol Use Standard Drinks/Week Comments No 0 (1 standard drink = 0.6 oz pur e alcohol) Comments No Sex and Gender Information Value Date Recorded Sex Assigned at Not on file Legal Sex Female 4:48 PM CREDIT RATING INSPECTOR Gender Identity Female 10/13/2024 2:22 PM CREDIT RATING INSPECTOR Sexual Orientation Not on file Occupation [...] Comments SCAN - LABS 12/13/2018 12:00 AM CREDIT RATING INSPECTOR documented in this encounter Results * SCAN - LABS (12/13/2018 12:00 AM CREDIT RATING INSPECTOR) Narrative 12/13/2018 12:00 AM CREDIT RATING INSPECTOR Ordered by an unspecified provider. us Historical Provider Final Res ult documented in this encounter Visit Diagnoses Not on filedocumented in this encounter Additional Health Concerns Infection Onset Date Last Indicated Resolved Time COVID: Suspected 09/28/2022 09/28/2022 09/28/2022 1:10 PM CREDIT RATING INSPECTOR MRSA Comment:Dx. by Dermatology at [facility] 09/2023. 02/19/2024 02/19/2024 08/14/2024 9: 32 AM CDT documented as of this encounter Care Teams Workforce Development Vice President Relationship Specialty Start Date End Date Jan Littlejohn MD [address] [facility] [place] [address] PCP - General 10/15/17 01/21/19 Guerita Cochran PA [address] [place] [address] PCP - General 01/22/19 06/06/20 Guerita Cochran PA [address] [place] [address] PCP - General 06/07/20 11/27/21 Miscellaneous, Not In File PCP - General 11/28/21 10/09/22 Kiley Pemberton NP PCP - General Family Medicine 10/10/22 Jan Littlejohn MD [address] [facility] [place] [address] 01/22/19 Reza Rose MD [address] [place] [address] Referring Physician Physical Medicine and Rehabilitation 01/23/24 Sunny Bazzi NP [address] [place] [address] [address] [place] [address] Nurse Practitioner Orthopedic Surgery 02/27/24 Leni Lopez MA [address] [place] [address] [address] [place] [address] ACO Care Scheduling Representative 03/27/24 03/30/24 Darnell Truong MD [address] [place] [address] [address] [place] [address] Surgeon Orthopedic Surgery 08/19/24 documented as of this encounter
--- OUTSIDE RECORDS SUMMARY | 2025-09-13 17:33 | XMS_ITS | Encounter Summary ---
Author Organization 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 [facility] [address] [place] [address] Kalie Norwood, SOCIAL SCIENCES CHAIR [address] [facility] [address] [place] [address] documented as of this encounter Visit Diagnoses Not on filedocumented in this encounter Additional Health Concerns Assessment Noted Time PHQ-9 Depression Total Score: 0 10/23/20 19 3:13 PM ELECTRONICS PROCESSING SUPERVISOR documented as of this encounter Care Teams Collar Setter Relationship Specialty Start Date End Date Iona Garner APNP [address] [place] [address] PCP - General NURSE PRACTITIONER 10/23/19 Kalyan Venegas MD [address] [facility] [address] [place] [id number] Acme Hand Clipper CARDIOVASCULAR DISEASE 12/09/19 documented as of this encounter
--- OUTSIDE RECORDS SUMMARY | 2025-09-13 17:33 | XMS_ITS | Encounter Summary ---
Author Organization [facility] Address [address] [place] [address] Phone Care Team Providers Care Traveling Sales Representative Name Role Phone Guerita Cochran Primary Care Provider [phone] Jan Littlejohn MD Unavailable [phone] Guerita Cochran Primary Care Provider [phone] Miscellaneous, Not In File Primary Care Provider Unavailable Kiley Pemberton NP Primary Care Provider Reza Rose MD Unavailable [phone] Sunny Bazzi NP Unavailable [phone] Leni Lopez MA Unavailable [phone] Darnell Truong MD Unavailable [phone] Encounter Details Date Type Department Care Team [...] on file Legal Sex Female 4:48 PM TIME RECORDER Gender Identity Female 10/13/2024 2:22 PM TIME RECORDER Sexual Orientation Not on file Occupation Industry [...] COVID: Suspected 09/28/2022 09/28/2022 09/28/2022 1:10 PM TIME RECORDER MRSA Comment:Dx. by Dermatology at [facility] 09/2023. 02/19/2024 02/19/2024 08/14/2024 9: 32 AM CDT documented as of this encounter Care Teams Traveling Sales Representative Relationship Specialty Start Date End Date Guerita Cochran PA [address] [place] [address] PCP - General 01/22/19 06/06/20 Guerita Cochran PA [address] [place] [address] PCP - General 06/07/20 11/27/21 Miscellaneous, Not In File PCP - General 11/28/21 10/09/22 Kiley Pemberton NP PCP - General Family Medicine 10/10/22 Jan Littlejohn MD [address] [facility] [place] [address] 01/22/19 Reza Rose MD [address] [place] [address] Referring Physician Physical Medicine and Rehabilitation 01/23/24 Sunny Bazzi NP [address] [place] [address] [address] [place] [address] Nurse Practitioner Orthopedic Surgery 02/27/24 Leni Lopez, PEDRO [address] [place] [address] [address] [place] [address] ACO Care Route Service Representative 03/27/24 03/30/24 Darnell Truong MD [address] [place] [address] [address] [place] [address] Surgeon Orthopedic Surgery 08/19/24 documented as of this encounter
--- OUTSIDE RECORDS SUMMARY | 2025-09-13 17:33 | XMS_ITS | Clinical Summary ---
Author Organization [facility] Address [address] [place] [address] Care Team Providers Care Adjunct History Instructor Name Role Phone Jan Littlejohn MD Unavailable [phone] Kiley Pemberton NP Primary Care Provider [phone] Reza Rose MD Unavailable [phone] Sunny Bazzi NP Unavailable Darnell Truong MD Unavailable Allergies Active Allergy Reactions Criticality Noted Date [...] Multiple joint pain 11/30/2022 Lumbar radiculopathy 11/30/2022 long-term (current) use of opiate analgesic 11/05 Lumbar facet arthropathy 11/29/2022 Abnormal Pap smear of cervix 10/17/2022 Overview (10/17/2022): 12 years ago Therapeutic opioid induced constipation 10/26/20 DDD (degenerative disc disease), lumbar 01/23/20 19 Assessment & Plan (12/25/2023 4:43 PM HELICOPTER PILOT): Patient does have chronic conditions that she has been on chronic pain medications. I discussed not being able to rx Hydrocodone. Patient's situation with pain management needs to improve, new referral placed for provider. I will rx Tramadol short term until she can establish with pain management/have her knee surgery. 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 I checked their [place] FLIGHT PHYSICIAN sheet and database, and it was consistent with prescribed medications. Linda's esophagus with low grade dysplasia 08/2018 Overview (07/14/2018): Added automatically from request for surgery [id number] Assessment & Plan (10/09/2022 3:55 PM HELICOPTER PILOT): Continues Omeprazole. Chest pain 05/13/2018 Colon cancer screening 09/06/2017 B12 deficiency 08/30/2017 Assessment & Plan (10/09/2022 3:54 PM HELICOPTER PILOT): Patient was on B12 injections with prior [...] with vitamin-D such as Oscal or Caltrate [id number] once daily for life. We will recheck her vitamin D levels in 16 weeks. High triglycerides 08/30/2017 Assessment & Plan (08/30/2017 5:32 PM CDT): Lipid panel reviewed in detail. Encouraged increased aerobic activity. Weight loss. Decrease caloric intake. Heart healthy diet. In addition, patient will start [place]wood 3 fish oil once daily. Will follow [...] hopes to avoid a trip in to [place]. Patient was encouraged to discuss this further with her primary care provider at her next scheduled visit. Chronic bilateral low back pain with right-sided sciatica 08/22/2017 Assessment & Plan (10/03/2023 11:01 AM HELICOPTER PILOT): Establishing with new pain management 10/15/23. Assessment & Plan (10/18/2022 10:03 AM HELICOPTER PILOT): Has not seen pain management since having to switch insurances, has scheduled appointment with Dr. Montana on 11/28/21. Patient was previously taking [place] for her pain from prior pain management but has not taken for about 2 months d/t insurance not covering her original pain management provider anymore. Patient's pain is not controlled, will rx Tramadol temporarily until she is able to get in with Pain Management on 11/28. Assessment & Plan (10/09/2022 3:56 PM HELICOPTER PILOT): Pt has spinal simulator in place, needs new referral to pain management. Referral placed to Dr. Montana for [place] location. Type 2 diabetes mellitus wit hout complication, without long-term current use of insulin 08/22/2017 Assessment & Plan (10/03/2023 11:00 AM HELICOPTER PILOT): A1c 5.9. diet controlled, continues focusing on diet/exercise. Assessment & Plan (02/21/2023 2:48 PM CDT): Diet controlled. No changes today. Assessment & Plan (10/09/2022 3:54 PM HELICOPTER PILOT): Labs ordered Diet controlled. 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 Discussed sleep medicine again but she prefers to hold off and monitor for now. Denies snoring or apneic episodes. Pulmonary hypertension 03/05/2017 Restless legs syndrome (RLS) 03/05/2017 Assessment & Plan (10/09/2022 3:56 PM HELICOPTER PILOT): Pt taking Gabapentin. Palpitations 03/20/2014 Overview (02/06/2017): Palpitations Insomnia secondary to chronic pain 03/20/2014 Overview (02/07/2017): Insomnia Bipolar II disorder 03/20/2014 Overview (08/22/2017): Bipolar disorder Assessment & Plan (10/09/2022 3:55 PM HELICOPTER PILOT): Currently taking Lexapro 10 mg, stable Herpes simplex type 2 infection 05/14/2011 Overview (02/07/2017): HSV-2 infection Diarrhea 07/16/2010 Diastolic dysfunction 07/15/2010 Assessment & Plan (10/18/2022 9:58 AM HELICOPTER PILOT): Has echo scheduled for 11/06/22 and appointment [...] Department Care Team Description 09/01/2025 Orders Only [facility] Health Information Management [address] [place] [address] Scanning, Provider 08/03/2025 Telephone [facility] Orthopedics and Sports Medicine [address] [address] Basia Lewis PA from Last [...] (degenerative joint disease) Hyperlipidemia Coronary artery disease [place] 2008 Bipolar disorder Interstitial cystitis Pulmonary hypertension [...] drink = 0.6 oz pur e alcohol) [facility] Utilities Answer Date Recorded In the past 12 months has th e [employer], gas, oil, or water [employer] threatened to shut off services in your [...] week 02/27/2024 How often do you attend [facility] or adventism services? Never 02/27/2024 Do you belong to any clubs o r organizations such as restoration groups, unions, fraternal or athletic groups, or [...] place to sleep or slept in a long term (including now)? No 02/27/2024 Personal Safety Answer Date Recorded Have you ever been in or are you currently in a harmful physical or emotional relationship or is someone making you feel afraid or unsafe? Denies 08/19/2024 Comments No Sex and Gender Information Value Date Recorded Sex Assigned at Not on file Legal Sex Female 4:48 PM HELICOPTER PILOT Gender Identity Female 10/13/2024 2:22 PM HELICOPTER PILOT Sexual Orientation Not on file Occupation [...] Comments Blood Pressure 122/69 10/15/2024 10:23 AM HELICOPTER PILOT Pulse 69 10/15/2024 10:23 AM HELICOPTER PILOT Temperature 36.6 C (97.8 F) 08/19/2024 3:11 PM CDT Respiratory Rate 16 08/19/2024 3:11 PM CDT Oxygen Saturation 97% 08/19/2024 3:11 PM CDT Inhaled Oxygen Concentration - - Weight 77.1 kg (170 lb) 10/15/2024 10:23 AM HELICOPTER PILOT Height 172.7 cm (5' 8) 10/15/2024 10:23 AM HELICOPTER PILOT Body Mass Index 25.85 10/15/2024 10:23 AM HELICOPTER PILOT Plan of Treatment Health Maintenance Due Date [...] overall activity Medical Devices Implanted Type Area Cut Press Operator Device Identifier Shelf Expiration Date Model / Serial / Lot Neurostimulator- 06/24/2019 Implanted:2018 by Edson Hung MD (Quantity not on file) Neurostimulator Back Medtronic Neuro [id number] / [id number] / Neurostimulator Lead-06/24/2019 Implanted:2018 by Edson Hung MD (Quantity not on file) Neurostimulator Back Medtronic Neuro [id number] / / [employer] Attune Cruciate Retain Cementless Knee Left 6 Component Femoral [id number] - [id number] Implanted:Qty: 1 on 02/25/2024 by Abdullahi Vidales MD at [facility] Left: Knee [employer] 01/01/2034 [id number] / / [id number] [employer] Attune Fb Tib Base Sz 5 Por [id number] - [id number] Implanted:Qty: 1 on 02/25/2024 by Abdullahi Vidales MD at [facility] Left: Knee [employer] 10/03/2024 [id number] / / [id number] [employer] Insert Tibial Knee Fixed Lm Posterior Stabilized Attune 5mm Size 6 Polyethylene [id number] - [id number] Implanted:Qty: 1 on 02/25/2024 by Abdullahi Vidales MD at [facility] Left: Knee [employer] 10/03/2031 [id number] / / [id number] [employer] Actis 115mm Collar Hip 10 12/14 High Offset Taper Stem Femoral [id number] - [id number] Implanted:Qty: 1 on 08/19/2024 by Darnell Truong MD at [facility] Left: Hip [employer] [id number] 03/03/2034 [id number] / / [id number] [employer] Articul/Oumar 36mm Cementless Hip +5mm /14 Taper Head Femoral Latex Free [id number] - [id number] Implanted:Qty: 1 on 08/19/2024 by Darnell Truong MD at [facility] Left: Hip [employer] [id number] 05/03/2029 [id number] / / [id number] [employer] [place] 54mm 36mm Hip Neutral Liner Acetabular Altrx Sterile Latex Free [id number] - [id number] Implanted:Qty: 1 on 08/19/2024 by Darnell Truong MD at [facility] Left: Hip [employer] [id number] 05/03/2029 [id number] / / [id number] [employer] [place] 54mm Sector Hip Shell Acetabular Gription Sterile Latex Free [id number] - [id number] Implanted:Qty: 1 on 08/19/2024 by Darnell Truong MD at [facility] Left: Hip [employer] [id number] 03/03/2034 [id number] / / [id number] [employer] [place] 6.5mm 25mm Acetabular Cancellous Screw Bone Sterile 1217-25-500 - [id number] Implanted:Qty: 1 on 08/19/2024 by Darnell Truong MD at [facility] Left: Hip [employer] [id number] 04/03/2034 0 / / [id number] [employer] [place] 6.5mm 35mm Acetabular Cancellous Screw Bone Sterile 1217-35-500 - [id number] Implanted:Qty: 1 on 08/19/2024 by Darnell Truong MD at [facility] Left: Hip [employer] [id number] 04/03/2034 0 / / [id number] Procedures Procedure Name Priority Date/Time Associated Diagnosis Comments SCAN - OTHER ORDERS 09/01/2025 EGFR Routine 07/22/2024 10:50 AM CDT Pre-operative exam HEMOGLOBIN A1C Routine 07/22/2024 10:50 AM CDT Pre-operative exam LIPID PANEL Routine 09/30/2023 8:04 AM HELICOPTER PILOT Type 2 diabetes mellitus without complication, without long-term current use of insulin (HCC) ALBUMIN CREATININE RATIO, URINE Routine 09/30/2023 8:04 AM HELICOPTER PILOT Type 2 diabetes mellitus without complication, without [...] ORDERABLES Fin al Result Performing Organization Address [facility] Co de Phone Number MICHELLE [facility] [address] [place] [address] [place] [address] * (ABNORMAL) Hemoglobin A1c (07/22/2024 10:50 AM CDT) Hgb A1C 5.7(H) 4.0 - 5.6 % Estimated Average Glucose 117 mg/dL [facility] Comment: The ADA recommends reporting an estimated Average Glucose (eAG) with all Hemoglobin A1c results using the equation derived from a study of 507 normal and diabetic adults. Minority populations were underrepresented and children were not included. (Diabetes Care 31:9429-2480, 2008). The eAG is not equivalent to a fasting glucose. Blood 07/22/2024 10:5 0 AM CDT 07/22/2024 11:05 AM CDT Darnell Truong MD LAB BLOOD ORDERABLES Fin al Result Performing Organization Address City/[facility]/ZIP Co de Phone Number MICHELLE [facility] [address] [facility] [place] [address] * Albumin Creatinine Ratio, Urine (09/30/2023 8:04 AM HELICOPTER PILOT) Albumin Ur <12.0 mg/L MICHELLE [facility] Comment: Interpretive Data No reference range established. Current interpretive data was last revised 2019. Creatinine Ur 23.0 mg/dL MICHELLE [facility] Comment: Interpretive Data No reference range established. Current interpretive data was last revised 2019. Albumin Creatinine Ratio, Ur See Comment 1 - 29 MICHELLE [facility] Comment:Unable to calculate Urine 09/30/2023 8:04 AM HELICOPTER PILOT 09/30/2023 2:17 PM HELICOPTER PILOT us Kiley Pemberton NP LAB URINE ORDERABLES Final Resul t MICHELLE [facility] [address] Department [place] [address] * Lipid panel (09/30/2023 8:04 AM HELICOPTER PILOT) Cholesterol 150 30 - 199 mg/dL MICHELLE [...] 2 MICHELLE [facility] Blood 09/30/2023 8:04 AM HELICOPTER PILOT 09/30/2023 2:17 PM HELICOPTER PILOT Kiley Pemberton NP LAB BLOOD ORDERABLES Final Resul t MICHELLE [facility] [address] Department [place] [address] * HM DIABETES EYE EXAM [...] AL ORDERABLES Final Result Performing Organization Address City/[facility]/ZIP Co de Phone Number MICHELLE [facility] [address] [address] Department [place] [address] from Last 3 Months or Most Recently Relevant to Health Maintenance Insurance MEDICARE [facility] Address: [address] [address] [place] [address] [facility] [employer] ADVANTAGE CHOICE PPO Advance Directives For more information, please contact: [phone] * Full Code (Latest Code Status on [...] 10:04 PM 05/13/2018 9:18 PM Care Teams Adjunct History Instructor Relationship Specialty Start Date End Date Kiley Pemberton NP [address] [facility] [place] [address] PCP - General Family Medicine 10/10/22 Jan Littlejohn MD [address] [facility] [place] [address] 01/22/19 GunReza lópez MD [address] [place] [address] Referring Physician Physical Medicine and Rehabilitation 01/23/24 Sunny Bazzi NP [address] [place] [address] [address] [place] [address] Nurse Practitioner Orthopedic Surgery 02/27/24 Darnell Truong MD [address] [place] [address] [address] [place] [address] Surgeon Orthopedic Surgery 08/19/24
--- OUTSIDE RECORDS SUMMARY | 2025-09-13 17:33 | XMS_ITS | Encounter Summary ---
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 Not on file Not on file documented as of this encounter Plan of Treatment Upcoming Encounters Date Type Department Care Team (Late st Contact Info) Description 10/26/2025 9:40 AM WET WASH ASSEMBLER Office Visit [facility] Multispecialty Care - [address] [place] [address] Kalie Norwood N, HOST COORDINATOR [address] [place] [address] documented as of this encounter Procedures Procedure Name Priority Date/Time Associated Diagnosis Comments CBC (OUTSIDE LAB) Routine 07/01/2020 COMPREHENSIVE METABOLIC PANEL Routine 07/01/2020 THYROID STIM HORMONE TSH Routine 07/01/2020 MAGNESIUM Routine 07/01/2020 documented in this encounter Results * MAGNESIUM (07/01/2020) MAGNESIUM 1.9 07/01/2020 us Doc [facility] Final Result * THYROID STIM HORMONE, TSH (07/01/2020) Pathologist [facility] TSH 2.820 07/01/2020 us Doc [facility] Final Result * COMPREHENSIVE METABOLIC PANEL (07/01/2020) Pathologist [facility] SODIUM S/P/B 137 POTASSIUM S/P/B 4.1 CO2 [...] Depression Total Score: 0 10/23/20 3:13 PM WET WASH ASSEMBLER documented as of this encounter Care Teams Aerospace Stress Engineer Relationship Specialty Start Date End Date Iona Garner APNP [address] [place] [address] PCP - General NURSE PRACTITIONER 10/23/19 Kalyan Venegas MD [address] [facility] [address] [place] [id number] [address] Freight CARDIOVASCULAR DISEASE 12/09/19 documented as of this encounter
[2025-09-13 17:41] LABS: Troponin I < 0.012 ng/mL (0.000-0.034)
[2025-09-13] MEDS: ACETAMINOPHEN 500 MG TABLET 1000 MG PO (17:48)
[2025-09-13 18:34] LABS: Add Urine Microscopic? NO; Appearance Urine Clear (Clear); Glucose Urine UA Negative (Negative); Leukocyte Esterase Ur Negative LEU/UL (Negative); Nitrate Urine Negative (Negative); Specific Grav Ur 1.014 (1.001-1.035)
[2025-09-13] MEDS: KETOROLAC 15 MG/ML VIAL (*BKC) IV PUSH (18:45)
[2025-09-13] MEDS: PROCHLORPERAZINE EDISYLATE 10 MG/2 ML VIAL 2.5 MG IV PUSH (18:46)
[2025-09-13] MEDS: SODIUM CHLORIDE 0.9% IV 1,000 ML 999 ML IV CONT (18:47)
[2025-09-13 18:50] LABS: Magnesium 1.9 mg/dL (1.6-2.3)
[2025-09-13 18:52] LABS: Cannabinoid Screen Urine Positive (Negative)
[2025-09-13] MEDS: MAGNESIUM SULF 1 GM/D5W 100 ML 1 GM/100 ML BAG IVPB (19:38)
--- NOTE | 2025-09-13 21:02 | PC.NURSE ---
Patient left cane in room, RN called spouse for pickup.
== END 2025-09-13 20:57 | disposition home or self-care (01) ==
PROVIDERS: Emergency Provider Student in an Organized Health Care Education/Training Program
DX: R51.9 Headache, unspecified (principal); D64.9 Anemia, unspecified; F12.90 Cannabis use, unspecified, uncomplicated; M06.9 Rheumatoid arthritis, unspecified; K21.9 Gastro-esophageal reflux disease without esophagitis; Z86.718 Personal history of other venous thrombosis and embolism; F41.9 Anxiety disorder, unspecified; F32.A Depression, unspecified; I25.10 Atherosclerotic heart disease of native coronary artery without angina pectoris; Z79.899 Other long term (current) drug therapy
CPT/HCPCS: 36415; 70450; 70496; 70498; 71045; 80053; 80307; 81003; 82077; 82948; 83735; 84484; 85025; 85610; 85730; 86850; 86900; 86901; 93005; 96361; 96365; 96375; 99284; A9270; J0780; J1200; J1885; J3475; J7030; J8540; Q9967

== ENCOUNTER 2025-09-23 10:25 | Outpatient (CLI) | payer OTHER, SELFPAY ==
--- OUTSIDE RECORDS SUMMARY | 2025-09-23 12:36 | XMS_ITS | Clinical Summary ---
Author Organization [facility] Address [address] [place] [address] Phone Care Team Providers Care Truck Farmer Name Role Phone Unavailable Primary Care Provider [...] Comments Blood Pressure 118/58 10/05/2021 3:35 PM LIME SLUDGE MIXER Pulse 75 10/05/2021 3:35 PM LIME SLUDGE MIXER Temperature 36.2 C (97.2 F) 10/05/2021 3:35 PM LIME SLUDGE MIXER Respiratory Rate 16 10/05/2021 3:35 PM LIME SLUDGE MIXER Oxygen Saturation 99% 10/05/2021 3:35 PM LIME SLUDGE MIXER Inhaled Oxygen Concentration - - Weight 74.4 kg (164 lb) 10/05/2021 3:35 PM LIME SLUDGE MIXER Height 172.7 cm (5' 8) 07/15/2018 9:58 AM CDT Body Mass Index 24.94 07/15/2018 9:58 AM CDT Plan of Treatment Health Maintenance Due Date Last Done Comments DEXA Bone Density 1950 Hepatitis C Virus (HCV) Screening 1950 Mammogram 1950 TdaP Immunization 1950 Cologuard 02/08/1997 Colonoscopy 02/08/1997 Colorectal Cancer Screening 02/08/1997 Immunochemical Fecal Occult Blood 02/08/1997 Respiratory Syncytial Virus (RSV) Immunization (Adult) (1 - Risk 50-74 years 1-dose series) 02/08/2002 Zoster Immunization (1 of 2) 02/08/2002 Pneumococcal Immunization (5 0+ years) (2 of [...]
[2025-09-23 12:48] LABS: Hematocrit 30.0 % (37.0-47.0); Hemoglobin 9.2 g/dL (12.0-15.0); Immature Granulocyte Percent A 0.2 % (0-0.5); Immature Reticulocyte Fraction 7.7 % (3.0-15.9); Lymphocytes Absolute Auto 1.44 K/mm3 (0.9-3.2); Mean Corpuscular HGB Conc 30.7 g/dl (32-36); Mean Corpuscular Hemoglobin 26.4 pg (26-34); Mean Corpuscular Volume 86.0 fl (80-100); Nucleated Red Blood Cells Absolute Auto 0.000 K/mm3 (0.0-0.012); Nucleated Red Blood Cells Perc 0.0 % (0.0-0.2); Platelet Count Result 244 k/mm3 (150-375); Red Blood Count 3.49 M/mm3 (4.2-5.4); Reticulocyte Hemoglobin Conten 30.5 pg (28.2-36.6); Reticulocytes Absolute 0.03 10^6/uL (0.02-0.10); White Blood Count 4.0 K/mm3 (4.5-10.0)
[2025-09-23 12:52] LABS: Iron 117 ug/dL (37-170)
[2025-09-23 13:02] LABS: Percent Iron Saturation 30 % (20-50)
[2025-09-23 13:05] LABS: Anion Gap 7 mmol/L (4-12); Blood Urea Nitrogen 13 mg/dL (7-17); CRP < 0.5 mg/dL (<1.0); Calcium 8.7 mg/dL (8.4-10.2); Carbon Dioxide 25 mmol/L (22-30); Chloride 104 mmol/L (98-107); Estimated Glomerular Filt Rate > 60; Glucose 114 mg/dL (65-110); Potassium 4.7 mmol/L (3.4-5.0); Sodium 136 mmol/L (137-145)
[2025-09-23 13:34] LABS: Ferritin 13.40 ng/mL (11.1-264)
[2025-09-23 13:35] LABS: Thyroid Stimulating Hormone 0.901 uIU/mL (0.465-4.680)
[2025-09-23 14:30] LABS: Hemoglobin A1C 5.5 % (<5.7)
[2025-09-24 13:09] LABS: Anti-CCP Ab, IgG/IgA 7 units (0-19)
[2025-09-24 14:08] LABS: ANA by IFA Rfx Titer/Pattern Positive (.)
== END 2025-09-23 10:26 | disposition home or self-care (01) ==
LOC: ANHGOSHLAB 10:26
DX: M25.561 Pain in right knee (principal); M25.562 Pain in left knee; D64.9 Anemia, unspecified; R76.89 Other specified abnormal immunological findings in serum; D50.9 Iron deficiency anemia, unspecified; E16.2 Hypoglycemia, unspecified
CPT/HCPCS: 36415; 80048; 82728; 83036; 83540; 83550; 84443; 85025; 85046; 85652; 86038; 86140; 86200; 86376